=== PATIENT | female | born 1955 | race Caucasian/White ===

== ENCOUNTER → 2017-08-30 08:19 | Outpatient (CLI) | payer BC, SELFPAY ==
--- NOTE | 2017-08-30 08:25 | US_ITS ---
US transvaginal HISTORY: Follow-up ovarian cyst, pelvic pain ORDERING PHYSICIAN: Fatmata Oliver MD PATIENT AGE: 61 years COMPARISON: 05/25/2009 FINDINGS: UTERUS: The uterus measures 6 x 2.5 x 4 cm with a 3 mm combined endometrial thickness. There is a small amount of fluid within the cervical canal. The uterus is retroverted. Overall obvious uterine mass. The left ovary is 1.6 x 1.5 cm and has an unremarkable appearance. The right ovary is 2 x 1 cm and has an unremarkable appearance. No cul-de-sac fluid. IMPRESSION: Retroverted uterus. Small amount fluid in the cervical canal. No adnexal mass or ovarian cyst apparent
--- NOTE | 2017-08-30 08:25 | US_ITS ---
EXAM: Ultrasound abdomen limited INDICATION: HISTORY: Right upper quadrant pain and indigestion ORDERING PHYSICIAN: Fatmata Oliver MD PATIENT AGE: 61 years COMPARISON: None FINDINGS: PANCREAS: Unremarkable. No obvious mass or abnormal fluid collection. No ductal dilatation LIVER: No focal liver lesions demonstrated. Homogeneous echogenicity. No intrahepatic biliary ductal dilatation evident RIGHT KIDNEY: Unremarkable. Normal size and echogenicity. No hydronephrosis GALLBLADDER: No gallstones, gallbladder wall thickening, pericholecystic fluid, or biliary dilatation. IMPRESSION: Negative gallbladder/right upper quadrant ultrasound
== END ==
PROVIDERS: Family Provider Family Medicine; PCP Family Medicine; Visit Provider Family Medicine
DX: R10.13 Epigastric pain (principal); Z87.42 Personal history of other diseases of the female genital tract
CPT/HCPCS: 76705; 76830

== ENCOUNTER 2020-02-22 21:05 | Emergency (ER) | payer OTHER, SELFPAY ==
--- NOTE | 2020-02-22 21:00 | ECG_ITS ---
APPROVED REPORT Exam: Resting ECG HR:73 bpm ECG Measurements Heart Rate 73 AXES WY 146 P 54 QRSd 96 QRS 42 QT 390 T 48 QTc 429 <Conclusion> Normal sinus rhythm Possible Left atrial enlargement ST abnormality, possible digitalis effect Abnormal ECG Electronically signed by : Shaheen Wallace, 02/23/2020 09:12:35
[2020-02-22 21:06] VITALS: BP 191/120; PULSE 79; RESP 16; TEMP 36.6; O2SAT 97; BMI 27.3
--- NOTE | 2020-02-22 21:11 | XR_ITS ---
PROCEDURE: XR CHEST 2V Patient Age:64Y CLINICAL HISTORY: chest pain Left-sided chest pain started 1 p.m. today. COMPARISON: CTAC CTA-CHEST from 03/15/2017 CXR1 CHEST-PORTABLE from 03/15/2017 FINDINGS: PA and lateral chest performed and compared to the February 2017 CXR The cardiomediastinal silhouette and pulmonary vascularity are within normal limits. The lungs are clear without infiltrates, suspicious nodules, or pleural effusions. No pneumothorax but no findings to account for left-sided chest pain. No acute bony abnormalities. Chest wall in T-spine appear stable IMPRESSION: Nothing definitely acute No acute cardiopulmonary findings . Dictated by: Pravin Salinas MD 02/22/2020 22:26 Electronically signed by Pravin Salinas MD in [place] 02/22/2020 22:26
[2020-02-22 21:20] LABS: Basophils # 0.1 K/mm3 (0-0.2); Basophils % 0.5 % (0.1-2.0); Eosinophils # 0.4 K/mm3 (0.0-0.4); Eosinophils % 3.1 % (0.1-12.0); Hematocrit 44.5 % (37.0-47.0); Hemoglobin 15.4 g/dL (12.2-16.2); Lymphocytes # 4.3 K/mm3 (0.7-4.5); Lymphocytes % 35.5 % (10-50); Mean Corpuscular HGB Conc 34.6 g/dL (31.8-35.4); Mean Corpuscular Hemoglobin 30.3 pg (27.0-31.2); Mean Corpuscular Volume 87.5 fl (81-99); Mean Platelet Volume 7.2 fl (7.4-10.4); Monocytes # 0.7 K/mm3 (0.1-1.0); Monocytes % 6.1 % (1.7-9.3); Neutrophils # 6.6 K/mm3 (1.8-7.8); Neutrophils % 54.8 % (37.0-80.0); Platelet Count 277 K/mm3 (142-424); Red Blood Count 5.08 M/mm3 (4.20-5.40); Red Cell Distribution Width 12.9 % (11.5-17.5)
[2020-02-22 21:24] LABS: Anion Gap 14.1 mEq/L (5-15); Blood Urea Nitrogen 14 mg/dl (7-17); Calcium 10.5 mg/dl (8.4-10.2); Carbon Dioxide 30 mmol/L (22.0-30.0); Chloride 98 mmol/L (98-107); Creatinine Clearance Estimated 72 mL/min (50-200); Estimated Glomerular Filt Rate 85 ml/min (>60); GFR (African American) 102 ML/MIN (>60); Glucose 102 mg/dl (74-100); Potassium 4.1 mmoL/L (3.5-5.1); Sodium 138 mmol/L (136-145)
--- NOTE | 2020-02-22 21:29 | HMH.EDCP ---
ED Disposition Clinical Impression: Chest pain, Atypical chest pain Disposition: Home, Self-Care Condition on Discharge: Good Additional Instructions: These follow-up with Rell Rangel in the a.m. for an outpatient stress test. Referrals: Provider,Referral, [Primary Care Provider] - Rell Rangel PA [Physician Custom Ski Maker] - - Critical Care Critical Care Time: No Attestation: On 02/22/20, the high probability of a clinically significant, sudden or life threatening deterioration of the following system(s) required my full and direct attention, intervention and personal management. The time I documented below is in addition to time spent performing reported procedures but includes the following listed in this critical care notation. Medical Decision Making - Medical Records Medical records reviewed: Yes: I reviewed the patient's medical records. - Paulo Inquiry Pt receiving controlled substance: No Vital Signs: 02/22/20 21:06 Temperature 97.9 F Temperature Source Oral Pulse Rate [Right Brachial] 79 Respiratory Rate 16 Blood Pressure [Right Arm] 191/120 H Blood Pressure Mean [Right Arm] 143 Blood Pressure Source [Right Arm] Automatic Cuff Blood Pressure Position [Right Arm] Sitting 02 Sat by Pulse Oximetry 97 Oxygen Delivery Method Room Air - Lab Data Lab results reviewed: Yes: I reviewed the patient's lab results. Orders (Tests/Meds): ED MEDICATIONS Generic Name Dose Route Start Last Admin Trade Name Freq PRN Reason Stop Dose Admin Sodium Chloride 1,000 mls @ 999 mls/hr 02/22/20 21:15 Sod Chlor 0.9% 1000ml Bag IV 02/22/20 22:15 .Q1H1M MARIA ESTHER Discontinued Medications Generic Name Dose Route Start Last Admin Trade Name Freq PRN Reason Stop Dose Admin Acetaminophen 1,000 mg 02/22/20 21:25 02/22/20 21:28 Tylenol 500mg Tablet PO 02/22/20 21:26 1,000 mg ONCE ONE Administration Aspirin 324 mg 02/22/20 21:12 Aspirin 81mg Chewable Tablet PO 02/22/20 21:13 ONCE ONE Morphine Sulfate 4 mg 02/22/20 21:12 Morphine 4mg/Ml Syringe IV 02/22/20 21:13 ONCE ONE Nitroglycerin 0.4 mg 02/22/20 21:12 Nitrostat 0.4mg Sl Tablet SL 02/22/20 21:13 ONCE ONE Ondansetron HCl 4 mg 02/22/20 21:26 02/22/20 21:28 Zofran 4mg/2ml Vial IV 02/22/20 21:27 4 mg ONCE ONE Administration ORDERS Category Date Time Status XR chest 2V Stat Exams 02/22/20 21:11 Ordered Basic Metabolic Panel Stat Lab 02/22/20 21:09 Received Complete Blood Count Auto Diff Stat Lab 02/22/20 21:09 Received Troponin I Q3H Lab 02/23/20 00:15 Ordered Troponin I Q3H Lab 02/23/20 03:15 Ordered Troponin I Stat Lab 02/22/20 21:09 Received - ECG Data Tracing #1 I reviewed this ECG and interpreted as documented below: Normal Sinus Rhythm: Yes Chest Pain HPI - General Chief Complaint: Chest Pain Stated Complaint: Chest pain Time Seen by Provider: 02/22/20 21:29 Mode of Arrival: Ambulatory Source of Information: Patient Limitations: No Limitations Description of Symptoms (Recalled from ER Triage Doc. by RN): Patient reports centralized chest discomfort that radiates to her back and up her neck that started around 1300 today. Patient reports the pain comes and goes throughout the day and gets worse when she lays down. - History of Present Illness HPI narrative: A pleasant 64-year-old female presents the emergency department with substernal chest pain. This chest pain occurred at rest about 1 hour prior to arrival. Patient states that she does not have any cardiac history she also states that she did have a stress test done here approximately 2 to 3 years ago and it was normal. Patient does states she has 2 risk factors which include hypertension hyperlipidemia. Presently her blood pressure is 190/110. Patient's pain is 4 out of 10 and she classifies as a pressure and sharp-like sensation. She states alleviating factors include and anything that does not in
[2020-02-22 21:30] VITALS: BP 158/109; PULSE 90; RESP 17; O2SAT 95
[2020-02-22 21:48] LABS: Troponin I < 0.01 ng/ml (0.00-0.034)
[2020-02-22 22:00] VITALS: BP 149/93; PULSE 62; RESP 10; O2SAT 96
--- NOTE | 2020-02-22 22:26 | PC.NURSE ---
Vivian in lab notified that Dr. Neal wants 2 hour troponin which will be at 2300.
[2020-02-22 22:30] VITALS: BP 146/95; PULSE 62; RESP 12; O2SAT 95
[2020-02-22 23:00] VITALS: BP 153/92; PULSE 62; RESP 10; O2SAT 95
[2020-02-22 23:20] LABS: Troponin I < 0.01 ng/ml (0.00-0.034)
[2020-02-22 23:52] VITALS: BP 155/98; PULSE 68; RESP 14; O2SAT 97
[2020-02-23 00:08] VITALS: BP 135/92; PULSE 67; RESP 11; TEMP 36.6; O2SAT 96
[2020-02-23 00:32] LABS: Coronavirus 19 IgG Antibody Negative (Negative); Coronavirus 19 IgM Antibody Negative (Negative)
== END 2020-02-23 00:29 | disposition home or self-care (01) ==
PROVIDERS: Emergency Provider Family Medicine; PCP Family Medicine
DX: R07.89 Other chest pain (principal); I10 Essential (primary) hypertension; E78.5 Hyperlipidemia, unspecified; Z88.1 Allergy status to other antibiotic agents; Z88.2 Allergy status to sulfonamides; Z79.899 Other long term (current) drug therapy
CPT/HCPCS: 36415; 71046; 80048; 84484; 85025; 86328; 93005; 96365; 96375; 99283; 99284; J2405

== ENCOUNTER → 2020-03-15 10:50 | Outpatient (CLI) | payer OTHER, SELFPAY ==
--- NOTE | 2020-03-15 11:06 | US_ITS ---
PROCEDURE: US KIDNEY CLINICAL INDICATION: ESSENTIAL HYPERTENSION COMPARISON: No exams were available for comparison FINDINGS: The right kidney is [id number]. No hydronephrosis, cortical thinning, or renal mass or perinephric fluid collection is evident. The left kidney is [id number]. No hydronephrosis, cortical thinning, or renal mass or perinephric fluid collection is evident. IMPRESSION: Unremarkable bilateral renal ultrasound Dictated by: Manuel Lara MD 03/15/2020 15:14 Manuel Lara MD in [place] 03/15/2020 15:14
== END ==
PROVIDERS: PCP Family Medicine; Visit Provider Family Medicine
DX: I10 Essential (primary) hypertension (principal)
CPT/HCPCS: 76770

== ENCOUNTER → 2020-05-19 06:21 | Outpatient (CLI) | payer OTHER, SELFPAY ==
--- NOTE | 2020-05-19 | CA_ITS ---
APPROVED REPORT Exam: Exercise Treadmill Technologist: Marie Arriaga Ht: 5 ft 7 in Wt: 175 lbs BSA: 1.91 m2 HR: 72 bpm BP: 144/91 mmHg Indications: Chest Pain Medical History Medications: Metoprolol,,,,, Losartan,,,,, Estradiol,,,,, DulOXETINE,,,,, RoSUVASTATIN,,,,, TriaMterene/HCTZ,,,,, Stress Test Details Test: Adrian HR Resting HR: 86 bpm Max Heart Rate (APMHR): 157 bpm Max HR Achieved: 158 bpm Target HR (85% APMHR): 133 bpm % of APMHR: 100 Recovery HR: 85 bpm BP Resting BP: 144.0/91.0 mmHg Max BP: 196.0/100.0 mmHg Recovery BP: 144.0/84.0 mmHg ECG Clinical Exercise duration: 08:00 min Highest Stage Achieved: Exercise capacity: 10.1 METs Stress ECG Conclusion Resting ECG: Normal sinus rhythm, ST abnormalities inferiorly and laterally, PVC. Patient exercised 8:00 on Adrian Protocol. Test stopped due to shortness of air, fatigue. Symptoms: No chest pain. Arrhythmias/Ectopy: None ST-T Changes: Mild exaggeration of baseline ST abnormalities. Conclusion: EKG with exercise is negative for ischemia. Myoview images reported separately. Electronically signed by : Vic Martin, 05/20/2020 10:42:24
--- NOTE | 2020-05-19 06:34 | NM_ITS ---
APPROVED REPORT Exam: Nuclear Stress Test Indication: HTN, HYPERLIPIDEMIA, FM HX, C.P., FATIGUE Patient Location: Outpatient Stress Tech: Marie Arriaga [place] Tech:Jennifer Patten, ARRT, RT (R)(N) Ht: 5 ft 7 in Wt: 175 lbs Bra Size: 38C HR: 72 bpm BP: 144/91 mmHg BSA: 1.91 m2 BMI: 27.4 History: HTN, HYPERLIPIDEMIA, FM HX, C.P., FATIGUE Procedure: Patient exercised on Adrian protocol 8:00 minutes and sec, resting heart rate 72 bpm, resting blood pressure 144/91 mmHg, with exercise maximum heart rate achived was 145 bpm which is 92 % of the maximum predicted heart rate and blood pressure was 196/100 mmHg. Patient denied any complaint of chest pain. Patient has good exercise capacity, achieved 10.1 METs of workload on treadmill, the blood pressure response to exercise was Hypertensive. Electrocardiogram Resting electrocardiogram showed sinus rhythm, with exercise there is less than 1.[address] segment depression noted from the baseline EKG. The EKG portion of the exercise Myoview is negative for ischemia. Cardiac Stress and Resting SPECT Images: Cardiac Stress and Resting SPECT images were obtained using technetium 99m Myoview 32.1 mCi stress and 9.98 mCi at rest. Gated SPECT for analysis of segmental wall motion and calculation of the ejection fraction also done. Prone images were also obtained. Cardiac stress and resting SPECT images show uniform myocardial activity without segmental perfusion abnormality, computer derived ejection fraction is 62% with no regional wall motion abnormality, right ventricle is normal size and contractility. Conclusion: 1. The EKG portion of the exercise Myoview is negative for ischemia, patient has good exercise capacity achieved 10.1 mets of workload on treadmill, the blood pressure response to exercise was hypertensive, there was no exercise-induced chest discomfort. 2. No scintigraphic evidence of reversible ischemia seen at this level of exercise, computer derived ejection fraction is 62% with no regional wall motion abnormality, right ventricle is normal size and contractility. 3. Normal exercise Myoview study except for hypertensive blood pressure response with exercise. Electronically signed by : Vic Martin, 05/20/2020 10:53:58
--- NOTE | 2020-05-19 08:12 | HMH.ITSHM ---
Current Home Medications as stated by this patient Nelly Cai or environmental marketing representative. []METOPROLOL HYDROCHLOROTHIAZIDE LOSARTAN OMEPRAZOLE DULOXETINE LOPREZZA ROSUVASTATIN
== END ==
PROVIDERS: PCP Family Medicine; Visit Provider Family Medicine
DX: R07.9 Chest pain, unspecified (principal)
CPT/HCPCS: 78452; 93017; A9502

== ENCOUNTER → 2020-06-21 09:42 | Outpatient (CLI) | payer OTHER, SELFPAY ==
[2020-06-22 14:52] LABS: Covid-19 Nasal PCR Sendout Lex Not Detected
== END ==
PROVIDERS: Visit Provider Family Medicine
DX: Z03.818 Encounter for observation for suspected exposure to other biological agents ruled out (principal)
CPT/HCPCS: U0004

== ENCOUNTER → 2020-10-20 09:14 | Outpatient (CLI) | payer OTHER, SELFPAY | PROVIDERS: PCP Family Medicine; Visit Provider Family Medicine | DX: Z20.822 Contact with and (suspected) exposure to COVID-19 (principal) | CPT/HCPCS: U0003 ==

== ENCOUNTER → 2021-04-15 09:24 | Outpatient (CLI) | payer OTHER, SELFPAY | PROVIDERS: PCP Family Medicine; Visit Provider Family Medicine | DX: Z20.822 Contact with and (suspected) exposure to COVID-19 (principal) | CPT/HCPCS: C9803; U0003; U0005 ==

== ENCOUNTER → 2021-08-22 11:53 | Outpatient (CLI) | payer OTHER, SELFPAY ==
--- NOTE | 2021-08-22 11:58 | XR_ITS ---
FINAL REPORT CLINICAL HISTORY: LT FOOT PAIN FINDINGS: LEFT ANKLE Three views demonstrate no acute fracture or dislocation. The visualized joint spaces are normally aligned. Mild degenerative changes are present. The soft tissues are unremarkable. IMPRESSION: No acute bony abnormality. Reviewed, Interpreted and Dictated by Lukas Saez III, MD Transcribed by Lisa Fajardo Authenticated by Lukas Saez III, MD on 08/22/2021 01:28:[address] [facility]
--- NOTE | 2021-08-22 11:58 | XR_ITS ---
FINAL REPORT CLINICAL HISTORY: LT FOOT PAIN FINDINGS: LEFT FOOT Left views of the left foot were obtained and compared to prior exam from 03/07/2017. There is no acute fracture or dislocation. There are mild degenerative changes a small plantar calcaneal spur. Mild degenerative changes are seen at the first metatarsophalangeal joint. Visualized joint spaces are normally aligned. Soft tissues are unremarkable. IMPRESSION: No acute bony abnormality. Reviewed, Interpreted and Dictated by Lukas Saez III, MD Transcribed by Lisa Fajardo Authenticated by Lukas Saez III, MD on 08/22/2021 01:28:[address] [facility]
== END ==
PROVIDERS: PCP Family Medicine; Visit Provider Nurse Practitioner Family
DX: M79.672 Pain in left foot (principal); M25.572 Pain in left ankle and joints of left foot
CPT/HCPCS: 73610; 73630

== ENCOUNTER → 2021-11-17 10:03 | Outpatient (CLI) | payer MEDICARE, OTHER, SELFPAY | PROVIDERS: PCP Family Medicine; Visit Provider Family Medicine | DX: Z01.812 Encounter for preprocedural laboratory examination (principal); Z11.52 Encounter for screening for COVID-19 | CPT/HCPCS: C9803; U0003; U0005 ==

== ENCOUNTER → 2022-01-10 09:09 | Outpatient (POV) | payer MEDICARE, OTHER, SELFPAY | PROVIDERS: Visit Provider Dermatology | DX: Z00.00 Encounter for general adult medical examination without abnormal findings (principal) ==

== ENCOUNTER → 2022-05-04 16:29 | Outpatient (CLI) | payer MEDICARE, SELFPAY ==
--- NOTE | 2022-05-04 | XR_ITS ---
PROCEDURE INFORMATION: Exam: XR Lumbosacral Spine Exam date and time: 05/04/2022 4:38 PM Age: 66 years old Clinical indication: Pain; Sciatica TECHNIQUE: Imaging protocol: Radiologic exam of the lumbosacral spine. Views: 2 or 3 views. COMPARISON: CR LS5 LUMBAR SPINE 5 VIEWS 03/07/2017 8:54 PM FINDINGS: Bones/joints: Mild dextroscoliosis of the lumbar spine. Intervertebral disc space narrowing L1 through L3 and L5/S1 consistent with degenerative disc disease.. There is no evidence of acute fracture.There is no evidence of malalignment or dislocation. Soft tissues: Unremarkable. IMPRESSION: 1. Intervertebral disc space narrowing L1 through L3 and L5/S1 consistent with degenerative disc disease.. 2. There is no evidence of acute fracture.There is no evidence of malalignment or dislocation.
== END ==
PROVIDERS: PCP Family Medicine; Visit Provider Physician Assistant
DX: G57.02 Lesion of sciatic nerve, left lower limb (principal)
CPT/HCPCS: 72100

== ENCOUNTER → 2022-08-01 14:12 | Outpatient (CLI) | payer MEDICARE, SELFPAY ==
--- NOTE | 2022-08-01 14:21 | XR_ITS ---
FINAL REPORT CLINICAL HISTORY: LT HIP PAIN FINDINGS: Left hip Three views were obtained. There is no acute fracture or dislocation. The joint spaces appear normal. No soft tissue abnormality is identified. IMPRESSION: No acute process. Reviewed, Interpreted and Dictated by Lukas Saez III, MD Transcribed by Tara Marin Authenticated and . [facility]
--- NOTE | 2022-08-01 14:21 | XR_ITS ---
FINAL REPORT CLINICAL HISTORY: LT HIP PAIN FINDINGS: Left femur Two views were obtained. There is no acute fracture or dislocation. The joint spaces appear normal. No soft tissue abnormality is identified. IMPRESSION: No acute process. Reviewed, Interpreted and Dictated by Lukas Saez III, MD Transcribed by Tara Marin Authenticated and [facility]
== END ==
PROVIDERS: PCP Family Medicine; Visit Provider Nurse Practitioner Family
DX: M25.552 Pain in left hip (principal); M79.652 Pain in left thigh
CPT/HCPCS: 73502; 73552

== ENCOUNTER 2023-12-14 11:58 | Outpatient (CLI) | payer MEDICARE, SELFPAY ==
--- NOTE | 2023-12-14 12:03 | XR_ITS ---
FINAL REPORT CLINICAL HISTORY: Low back pain COMPARISON: None FINDINGS: LUMBOSACRAL SPINE SERIES Five views of the lumbosacral spine were obtained. There is no fracture present. There is no malalignment. There is moderate disc space narrowing at L2-3 with small anterior osteophytes. There is moderate disc space narrowing at L5-S1 with advanced facet sclerosis in the lower lumbar spine. IMPRESSION: Hypertrophic changes of degenerative disc disease at L2-3 and L5-S1. Reviewed, Interpreted and Dictated by Raghu Duque MD Transcribed by Marilyn Jimenez Authenticated and . [facility]
== END 2023-12-14 23:59 | disposition home or self-care (01) ==
LOC: RAD 11:59
PROVIDERS: PCP Family Medicine; Visit Provider Family Medicine
DX: M54.50 Low back pain, unspecified (principal)
CPT/HCPCS: 72110

== ENCOUNTER 2024-01-14 10:24 | Outpatient (CLI) | payer MEDICARE, SELFPAY ==
[2024-01-14 10:39] LABS: Adenovirus F 40/41, stool Not Detected (NotDetected); Astrovirus Not Detected (NotDetected); Campylobacter Not Detected (NotDetected); Clostridium Difficile A/B, PCR Not Detected (NotDetected); Cryptosporidium Not Detected (NotDetected); Cyclospora Cayetanesis Not Detected (NotDetected); Entamoeba histolytica Not Detected (NotDetected); Enteroaggregative E coli Not Detected (NotDetected); Enteropathogenic E coli Not Detected (NotDetected); Enterotoxigenic E coli Not Detected (NotDetected); Giardia lamblia Not Detected (NotDetected); Norovirus Not Detected (NotDetected); Plesimonas Shigalloides, PCR Not Detected (NotDetected); Rotavirus A Not Detected (NotDetected); Salmonella, PCR Not Detected (NotDetected); Sapovirus Not Detected (NotDetected); Shiga-like toxin E coli Not Detected (NotDetected); Shigella Enterovasive E coli Not Detected (NotDetected); Vibrio Cholerae Not Detected (NotDetected); Vibrio, PCR Not Detected (NotDetected); Yersinia Entercolitica, PCR Not Detected (NotDetected)
== END 2024-01-14 23:59 | disposition home or self-care (01) ==
LOC: LAB 10:27
PROVIDERS: PCP Family Medicine; Visit Provider Family Medicine
DX: K52.9 Noninfective gastroenteritis and colitis, unspecified (principal)
CPT/HCPCS: 87506

== ENCOUNTER 2024-05-06 11:37 | Outpatient (CLI) | payer MEDICARE, SELFPAY ==
--- NOTE | 2024-05-06 11:41 | XR_ITS ---
FINAL REPORT CLINICAL HISTORY: FOOT PAIN ,LEFT COMPARISON: 08/22/2021 FINDINGS: LEFT FOOT Three views of the left foot demonstrate no acute fracture or dislocation. The visualized joint spaces are normally aligned. The soft tissues are unremarkable. A plantar calcaneal spur is present. IMPRESSION: No acute bony abnormality. Small plantar calcaneal spur. Reviewed, Interpreted and Dictated by Raghu Duque MD Transcribed by Haleigh Wood Authenticated and . [facility]
== END 2024-05-06 23:59 | disposition home or self-care (01) ==
LOC: RAD 11:38
PROVIDERS: PCP Family Medicine; Visit Provider Nurse Practitioner Family
DX: M79.672 Pain in left foot (principal)
CPT/HCPCS: 73630

== ENCOUNTER 2024-07-17 10:00 | Outpatient (RCR) | payer MEDICARE, SELFPAY ==
--- NOTE | 2024-06-27 10:47 | HMH.PTOPEV ---
PT Outpatient Evaluation Rehab PT Outpatient Evaluation Start: 06/27/24 07:57 Freq: Status: Active Protocol: Document 06/27/24 09:13 TEX (Rec: 06/27/24 10:47 PHODARA [id number]) E-signed By Baldo Ospina, PT Outpatient Therapy Subjective History Subjective History This is the initial eval for Nelly Cai. Pt is a 68 yo female who presents w/ a dx of brachioradial pruritus. Pt c/o HANY itching sensation that is in the upper arms and goes into the elbows, R>L. She describes the sensation is occasionally accompanied w/ pain. Pt denies symptoms distal to the elbow and denies numbness and/or tingling. Pt states the symptoms started in January. Pt has a PMH of RA and HTN that are both controlled by medication. Pt reports a medication change in December. She reports the symptoms are worse in the evening while sitting on the couch. Other factors that have increased her symptoms include scratching the itching, allergies during the fall this year, and holding her grandson. Pt denies having imaging performed. Pt reports occasional headaches but contributes them to her sinuses. Her symptoms are relieved by using ice. Sleep is mildly disturbed when she rolls onto her right, but she denies any other functional limitations at this time. Additionally, she reports stiffness in her cervical spine w/ all motions, but R rotation and R lateral flexion > L. Pt reports pain today is a 0/10 and at the worst 5/10. She states her symptoms are intermittent. Pt denies having a pacemaker. New diagnosis of cancer in past 12 No months? Chief Complaint Stiff,Other Symptom Type Other Symptoms Relieved By Ice Symptoms Aggravated By Lifting Prior Functional Limitations None Current Functional Limitations Lifting,Sleeping Level of pain today (0-10) 0 Pain scale - at its best (0-10) 0 Pain scale - at its worst (0-10) 5 Cervical Eval Palpation Cervical/Thoracic Palpation Findings None/Normal Posture Head/C-Spine Posture Sitting Position Neutral Position Head/C-Spine Posture Standing Position Neutral Position Passive Joint Mobility Cervical PIVM Dec: R OA L OA R AA L AA R C2/3 L C2/3 R C3/4 L C3/4 R C4/5 L C4/5 R C5/6 L C5/6 R C6/7 L C6/7 R C7/T1 L C7/T1 AROM Cervical Spine Extension Active Range of 32 Motion (degrees) Cervical Spine Flexion Active Range of 27 Motion (degrees) Cervical Spine Right Lateral Flexion 17 Active Range of Motion (degrees) Cervical Spine Left Lateral Flexion 21 Active Range of Motion (degrees) Cervical Spine Right Rotation Active 47 Range of Motion (degrees) Cervical Spine Left Rotation Active 47 Range of Motion (degrees) MMT Bilateral Deltoid (C5) 5 Normal Biceps Brachii Strength Grade 5 Normal Wrist Extension Strength Grade Not Tested Triceps Brachii Strength Grade 5 Normal Wrist Flexion Strength Grade Not Tested Extensor Pollicis Longus Strength Grade 5 Normal Finger Abduction Strength Grade 5 Normal DTR Rt Biceps 2+ Lt Biceps 2+ Rt Brachioradialis 2+ Lt Brachioradialis 2+ Rt Triceps 2+ Lt Triceps 2+ Altered Sensation Bilateral Upper extremity Dermatomes C5,C6,C7,C8,T1 Comment Equal HANY, no deficits Special Test C-Spine Foraminal Compression (Spurling) Negative Left,Negative Right Test C-spine Verterbral Accessory Movements Central P/A Kenyon,Right P/A that Elicit Symptoms Kenyon,Left P/A Kenyon C-Spine Foraminal Distraction Test Negative C-Spine Compression Test Negative Left,Negative Right Neck Disability Index Neck Disability Index Section 1: Pain Intensity I have no pain at the moment Section 2: Personal Care (washing, I can look after myself dressing, etc.) normally without causing extra pain Section 3: Lifting I can only lift very light weights Section 4: Reading I can read as much as I want with moderate pain in my neck Section 5: Headaches I have slight headaches, which come infrequently Section 6: Concentration I can concentrate fully when I want to with no difficulty Section 7: Work I can do as much work as I want to Section 8: Driving I can drive my car without any neck pain Section 9: Sleeping My sleep is slightly disturbed (less than 1 hr sleepless) Section 10: Recreation I am able to engage in all my recreation activities with no neck pain NDI Score 8 Miscellaneous Dx PT Eval Objective Objective Cervical PIVMS: HANY mobility deficits, stiff end feels UPAs most provocative HANY: C2, C4-5, C6-7. 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 Noticeable erythema on R after performing UPAs. None observed on L. Outpatient Therapy Assessment Impairments Problems/Impairmments Palpation Tenderness,Impaired Range of Motion,Impaired Lifting,Subjective C/O Pain Prognosis Rehab Potential Good Comment Skilled PT services are indicated to increase ROM deficits and improve subjective c/o pain/itching. Clinical Impression Consistent with Diagnosis Yes Consistent with Bracioradial pruritus Short Term Goals Number of Weeks 2 Increase Range of Motion Yes: Improve by 5 degrees in all planes Restore Ability to Lift Objects to Waist Yes: Able to lift and hold Level 30lbs for 30s w/ <3/10 pain Improve Neck Disability Index Score Yes: Improve by at least 2 points Decrease Subjective C/O Pain Yes: Decrease pain at worst to 3/10 Patient to be Ind w/ HEP Yes: Yes Supervisor Laboratory Goals Increase Range of Motion Yes: Increase by 10 degrees in all planes Restore Ability to Lift Objects to Waist Yes: Able to lift and hold 30# Level w/ 0/10 pain Improve Neck Disability Index Score Yes: Improve score by at least 4 points Decrease Subjective C/O Pain Yes: Decrease pain at worst to 1/10 Patient to be Ind w/ Advanced HEP Yes: Yes Outpatient Therapy Plan of Care Treatment Plan May Include Therapeutic Exercise Including Home Yes Exercise Program Manual Therapy Techniques Yes Neuromuscular Re-education Yes Therapeutic Activities to Return to Yes Previous Functional/Work Level ADL/Self Care Education Yes Mechanical Traction Yes Dry Needling Yes Thermal Modalities Yes Electrical Stimulation Yes Ultrasound/Phonophoresis Yes Massage Yes Eval/Re-Eval Yes Frequency Times per week 2-3 Duration Number of Weeks 4-6 Addendums This patient is a candidate for social No or vocational rehab? Patient/Guardian verbally acknowledges Yes understanding of treatment program and consents to further treatment? Patient/Guardian verbally acknowledges Yes understanding of diagnosis, prognosis and goals for treatment? Eval Complexity PT Charges 15394 - High Complexity Shoulder/Elbow Eval Shoulder Objective Measurements Elbow Objective Measurements PHYSICIAN CERTIFICATION: I certify the specified therapy services for Nelly Cai are required, authorized, and reviewed every 30 days.
== END 2024-07-17 23:59 | disposition home or self-care (01) ==
LOC: PT 10:00
PROVIDERS: PCP Family Medicine; Visit Provider Nurse Practitioner Family
DX: L29.9 Pruritus, unspecified (principal)
CPT/HCPCS: 97012; 97014; 97110; 97140; 97163; G0283

== ENCOUNTER 2024-08-10 13:09 | Emergency (ER) | payer MEDICARE, SELFPAY ==
--- NOTE | 2024-08-10 13:10 | XR_ITS ---
PROCEDURE INFORMATION: Exam: XR Left Foot Exam date and time: 08/10/2024 1:11 PM Age: 68 years old Clinical indication: Injury or trauma; Fall; Blunt trauma; Foot; Left TECHNIQUE: Imaging protocol: Radiologic exam of the left foot. Views: 3 or more views. COMPARISON: CR XR FOOT LT MIN 3V 05/06/2024 11:49 AM FINDINGS: Bones/joints: Comminuted minimally displaced spiral oblique fracture of the distal half of the 5th metatarsal consistent with acute fracture. Degenerative changes in the tarsometatarsal joints and 1st metatarsophalangeal joint and IP joint. Soft tissues: Soft tissue swelling laterally. IMPRESSION: 1. Comminuted minimally displaced spiral oblique fracture of the distal half of the 5th metatarsal consistent with acute fracture. 2. Degenerative changes in the tarsometatarsal joints and 1st metatarsophalangeal joint and IP joint.
--- NOTE | 2024-08-10 13:10 | XR_ITS ---
PROCEDURE INFORMATION: Exam: XR Left Ankle Exam date and time: 08/10/2024 1:13 PM Age: 68 years old Clinical indication: Injury or trauma; Fall; Blunt trauma; Ankle; Left TECHNIQUE: Imaging protocol: Radiologic exam of the left ankle. Views: 3 or more views. COMPARISON: CR XR ANKLE LT MIN 3V 08/22/2021 12:03 PM FINDINGS: Bones/joints: There is no evidence of acute fracture of the ankle.There is no evidence of malalignment or dislocation. Degenerative changes in the medial malleolus There is acute fracture of the 5th metatarsal Soft tissues: Normal. IMPRESSION: There is no evidence of acute fracture of the ankle.There is no evidence of malalignment or dislocation. Acute fracture of the 5th metatarsal
[2024-08-10 13:30] VITALS: BP 133/89; PULSE 71; RESP 18; TEMP 36.7; O2SAT 99; BMI 29.7
--- NOTE | 2024-08-10 13:36 | EXP.UTC ---
Discharge Plan Disposition Patient Disposition: Home, Self-Care Condition: Good Prescriptions Prescriptions: New ibuprofen 800 mg tablet 800 mg PO Q8H PRN (Reason: pain) Qty: 30 0RF No Action metoprolol succinate 50 MG tablet extended release 24 hr 50 mg PO DAILY rosuvastatin 20 MG tablet 20 mg PO DAILY duloxetine 30 MG capsule,delayed release(DR/EC) 30 mg PO DAILY losartan 100 MG tablet 100 mg PO DAILY 30 Days Qty: 30 2RF oxazepam 15 mg capsule 15 mg PO DAILY gabapentin 100 mg capsule 100 mg PO TID Referrals Follow up/Referrals: Fatmata Oliver MD [Primary Care Provider] - See instructions Activity Restrictions/Add. Instructions Additional Instructions/Restrictions: Follow up with Dr. Mao on , . Rest, ice, elevation, and compression. Wear boot while walking. Clinical Impressions Clinical Impression: Fracture of fifth metatarsal bone of left foot with malunion Instructions Patient Instructions: DI for Foot Fracture, How To Perform RICE (Rest, Ice, Compress, Elevate) Print Language Print Language: Romanian Discharge ED Provider: Monet Alvarado [facility] HPI General Stated complaint: AO fall 08/10 @1000, left foot pain Mode of Arrival: Ambulatory Source of Information: Patient Limitations: No Limitations Time Seen by Provider: 08/10/24 13:34 Description of Symptoms (Recalled from Triage Doc. by RN): PATIENT C/O INJURY TO LEFT FOOT AFTER FALLING ON ICE THIS MORNING HEENT Symptoms (Recalled from RN notes): No Resp Symptoms (Recalled from RN notes): No Skin Symptoms (Recalled from RN notes): No MS Symptoms (Recalled from RN notes): Yes Functional Status (Recalled from RN notes): WNL History of Present Illness Provider Complaint: Pt reports that she was walking and hit a piece of ice and hurt her left foot/ankle. She reports that she has iced her foot and elevated. She reports that the pain has gotten worse and the foot is bruised and swollen. Related Data Home Medications ?Medication ?Instructions ?Recorded ?Confirmed duloxetine 30 mg capsule,delayed 30 mg PO DAILY antidepressant 02/22/20 08/10/24 release metoprolol succinate 50 mg 50 mg PO DAILY BP 02/22/20 08/10/24 tablet,extended release 24 hr rosuvastatin 20 mg tablet 20 mg PO DAILY Cholesterol 02/22/20 08/10/24 gabapentin 100 mg capsule 100 mg PO TID 08/10/24 08/10/24 oxazepam 15 mg capsule 15 mg PO DAILY 08/10/24 08/10/24 Previous Rx's ?Medication ?Instructions ?Recorded losartan 100 mg tablet 100 mg PO DAILY 30 days #30 tabs 02/23/20 ibuprofen 800 mg tablet 800 mg PO Q8H PRN pain #30 tabs 08/10/24 Allergies Allergy/AdvReac Type Severity Reaction Status Date / Time ciprofloxacin (From CIPRO) Allergy Unknown Verified 09/01/22 10:30 sulfamethoxazole (From Allergy Unknown Verified 09/01/22 10:30 BACTRIM) trimethoprim (From BACTRIM) Allergy Unknown Verified 09/01/22 10:30 amoxicillin AdvReac Verified 09/01/22 10:30 Worker's Comp Is this a Worker's Comp case?: No [facility] Disclaimer: The information contained in this section may have been updated after the patient was seen, as this information can be updated by other users. Social History Smoking Status: Never smoker alcohol intake: current alcohol intake frequency: holidays/special occasions only current occupational status: retired Travel in the last 8 weeks: None Have you lived/traveled outside US in past 30 days?: No Contact w/someone who lives/traveled outside US past 30 days?: No Exposure to someone with infectious disease in past 14 days?: No Do you have a fever (greater than 100.4 F or 38 C)?: No Have you tested positive for COVID-19: No Exposed to someone with COVID-19 in past 14 days?: No Do you have a sore throat?: No Do you have a cough?: No Do you have any weakness?: No Do you have any diarrhea?: No Are you experiencing any unusual bleeding?: No Do you have any muscle aches/pain?: No Do you have any abdominal pain?: No Are you experiencing loss of taste or smell?: No ROS Obtained: Yes All systems reviewed & no additional complaints except as documented Constitutional Constitutional: Reports system reviewed and no additional complaints, except as documented Eyes Eyes: Reports system reviewed and no additional complaints, except as documented ENT Ears, Nose, Mouth, and Throat: Reports system reviewed and no additional complaints, except as documented Cardiovascular Cardiovascular: Reports system reviewed and no additional complaints, except as documented Respiratory Respiratory: Reports system reviewed and no additional complaints, except as documented Gastrointestinal Gastrointestingal: Reports system reviewed and no additional complaints, except as documented Genitourinary Female Genitourinary: Reports system reviewed and no additional complaints, except as documented Musculoskeletal Musculoskeletal: Reports system reviewed and no additional complaints, except as documented, Reports abnormal gait, Reports arthralgias and Reports joint swelling Integumentary/Breasts Skin/Breast: Reports system reviewed and no additional complaints, except as documented Neurologic Neurologic: Reports system reviewed and no additional complaints, except as documented and Reports abnormal gait Endocrine Endocrine: Reports system reviewed and no additional complaints, except as documented Hematologic/Lymphatic Henatologic/Lymphatic: Reports system reviewed and no additional complaints, except as documented Allergic/Immunologic Allergic/Immunologic: Reports system reviewed and no additional complaints, except as documented Physical Exam General General appearance: alert and in no apparent distress Head Head exam: atraumatic and normocephalic Eye Eye exam: Present normal appearance ENT ENT exam: Present normal exam and normal oropharynx Neck Neck exam: Present normal inspection Chest Chest inspection: Present normal inspection and symmetric chest wall rise Respiratory Respiratory exam: Present normal lung sounds bilaterally Cardiovascular Cardiovascular exam: Present regular rate, normal rhythm and normal heart sounds Abdominal Exam Abdominal exam: Present soft Extremities Exam Extremities exam: Present tenderness and normal capillary refill Expanded Lower Extremity Exam Left: Hip/Pelvis exam: Present normal inspection Upper leg exam: Present normal inspection Knee exam: Present normal inspection Lower leg exam: Present normal inspection Ankle exam: Present tenderness Foot/toe exam: Present tenderness, swelling and ecchymosis Top foot image: 1. bruising and tenderness noted Neurovascular/Tendon exam: Present normal capillary refill Gait: observed and limited by pain Back Exam Back exam: Present normal inspection Neurological Exam Neurological exam: Present alert and oriented X3 Psychiatric Psychiatric exam: Present normal affect and normal mood Skin Skin exam: Present warm, dry and intact Lymphatic Lymphatic Findings: no adenopathy Medical Decision Making Medical Records Screening: Per USPSTF and CDC recommendations, given the prevalence of disease in our region, it is our hospital?s policy to screen for HIV and viral Hepatitis for all patients aged 18 and over and those with ongoing risk factors. Paulo Inquiry Pt receiving controlled substance: No Paulo was queried for this patient: No Vital Signs: 08/10/24 13:30 Temperature 98.1 F Temperature Source Oral Pulse Rate [Left Brachial] 71 Respiratory Rate 18 Blood Pressure [Left Arm] 133/89 Blood Pressure Mean [Left Arm] 103 Blood Pressure Source [Left Arm] Automatic Cuff Blood Pressure Position [Left Arm] Sitting 02 Sat by Pulse Oximetry 99 Oxygen Delivery Method Room Air Orders (Tests/Meds): ORDERS Category Date Time Status XR ankle LT min 3V Stat Exams 08/10/24 13:10 Taken XR foot LT min 3V Stat Exams 08/10/24 13:10 Taken Radiology Data #1: Image(s): Foot/Toes Image Reviewed: Yes I reviewed the patient's radiology results and Yes I have reviewed radiologist's interpretation IMPRESSION: 1. Comminuted minimally displaced spiral oblique fracture of the distal half of the 5th metatarsal consistent with acute fracture. 2. Degenerative changes in the tarsometatarsal joints and 1st metatarsophalangeal joint and IP joint. #2: Image(s): Ankle Image Reviewed: Yes I reviewed the patient's radiology results and Yes I have reviewed radiologist's interpretation IMPRESSION: There is no evidence of acute fracture of the ankle.There is no evidence of malalignment or dislocation. Acute fracture of the 5th metatarsal
[2024-08-10 14:35] VITALS: BP 133/89; PULSE 71; RESP 18; TEMP 36.7; O2SAT 99
== END 2024-08-10 14:38 | disposition home or self-care (01) ==
PROVIDERS: Emergency Provider Nurse Practitioner Family; PCP Family Medicine
DX: S92.352P Displaced fracture of fifth metatarsal bone, left foot, subsequent encounter for fracture with malunion (principal); M79.672 Pain in left foot; S90.32XA Contusion of left foot, initial encounter; R22.42 Localized swelling, mass and lump, left lower limb
CPT/HCPCS: 73610; 73630; 99212; G0381

== ENCOUNTER 2024-09-15 13:39 | Outpatient (CLI) | payer MEDICARE, SELFPAY ==
--- NOTE | 2024-09-15 13:42 | MR_ITS ---
FINAL REPORT TECHNIQUE: Multiplanar MR without gadolinium enhancement CLINICAL HISTORY: PARESTHESIAS bilateral itching on upper arms COMPARISON: None FINDINGS: Limited images of the posterior fossa are unremarkable. There is minimal anterolisthesis of C5 on C6 and T1 on T2. Cervical spinal cord shows normal signal and contour. C2-3: There is mild bilateral neural foraminal narrowing without evidence of canal stenosis. C3-4: There is mild left neural foraminal narrowing without evidence of central canal stenosis. C4-5: A small central disc protrusion is present without evidence of central canal stenosis. C5-6: A mild annular bulge is present without evidence of canal stenosis. C6-7: A mild annular bulge is present without evidence of canal stenosis. C7-T1: Unremarkable T1-T2: Unremarkable IMPRESSION: Mild multilevel degenerative disks disease is present without evidence of canal stenosis. Mild degenerative subluxation of C5 on C6 and T1 on T2 as described. Reviewed, Interpreted and Dictated by Fatmata Cheney MD Transcribed by Haleigh Wood Authenticated and . [facility]
== END 2024-09-15 23:59 | disposition home or self-care (01) ==
LOC: RAD 13:40
PROVIDERS: PCP Family Medicine; Visit Provider Family Medicine
DX: R20.2 Paresthesia of skin (principal); M50.30 Other cervical disc degeneration, unspecified cervical region
CPT/HCPCS: 72141

== ENCOUNTER 2024-10-07 11:45 | Outpatient (CLI) | payer MEDICARE, SELFPAY ==
--- NOTE | 2024-10-07 11:50 | XR_ITS ---
FINAL REPORT TECHNIQUE: 3 views right hand CLINICAL HISTORY: . 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 There is sparing of the proximal joints. The second DIP, third PIP and fifth DIP joints are the most severely affected. Generalized osteopenia is present. 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 Reviewed, Interpreted and Dictated by Fatmata Cheney MD Transcribed by Haleigh Wood Authenticated and [facility]
--- NOTE | 2024-10-07 11:50 | XR_ITS ---
FINAL REPORT TECHNIQUE: 3 views left hand CLINICAL HISTORY: INFLAMMATORY POLYARTHROPATHY COMPARISON: None FINDINGS: LEFT HAND: Three views demonstrate erosive osteoarthritic change in the distal and proximal inner phalangeal joints. The second, third, and fifth digits are the most severely involved. Overall arthropathy is worse in the left hand than the right. Osteopenia is present. IMPRESSION: Erosive osteoarthritic change of predominantly the DIP and PIP joints of the left hand as described, more severe in the left hand than the right. Reviewed, Interpreted and Dictated by Fatmata Cheney MD Transcribed by Haleigh Wood Authenticated and [facility]
== END 2024-10-07 23:59 | disposition home or self-care (01) ==
LOC: RAD 11:47
PROVIDERS: PCP Family Medicine; Visit Provider Internal Medicine Rheumatology
DX: M06.4 Inflammatory polyarthropathy (principal)
CPT/HCPCS: 73130

== ENCOUNTER 2025-06-17 08:47 | Outpatient (CLI) | payer MEDICARE, SELFPAY ==
--- OUTSIDE RECORDS SUMMARY | 2016-12-05 09:35 | XMS_ITS | Encounter Summary ---
[facility] Address [address] [place] [address] Care Team Providers Care Pickle Sorter Name Role Phone Hernandez Oliver MD Primary Care Provider [phone] Encounter Details Date Type Department Care Team (Late st Contact Info) Description 12/05/2016 10:35 AM EDT Hospital Encounter [facility] PULMONARY & CRITICAL CARE MEDICINE [address] [place] [id number] Social History Tobacco Use Types Packs/Day Years Used Date Smoking Tobacco: Never Passive Smoke Exposure: Never Smokeless Tobacco: Never Alcohol Use Standard Drinks/Week Comments Yes 0 (1 standard drink = 0.6 oz pur e alcohol) Rarely Comments No Sex and Gender Information Value Date Recorded Sex Assigned at Female 01/29/2025 8:22 AM EDT Legal Sex Female 12:04 PM EDT Gender Identity Not on file Sexual Orientation Straight 01/29/2025 8: 22 AM EDT documented as of this encounter Plan of Treatment Upcoming Encounters Date Type Department Care Team (Late st Contact Info) Description 07/27/2025 10:40 AM EST Office Visit [facility] [address] [facility] [address] [place] [phone] Jamie Glass MD [address] [facility] [address] [place] [address] 08/07/2025 9:15 AM EST Office Visit [facility] CARDIOLOGY [address] [place] [phone] Bashir Norman MD [address] [facility] [address] [place] [address] 02/11/2026 10:15 AM EDT Office Visit [facility] OBGYN [address] [facility] [address] [place] [address] Francesca Cheney, DISPLAY MAKER [address] [facility] [address] [place], [place] [phone] documented as of this encounter Procedures Procedure Name Priority Date/Time Associated Diagnosis Comments XR CHEST PA AND LATERAL Routine 12/05/2016 10:43 AM EDT Cough documented in this encounter Results * XR Chest PA & Lateral (12/05/2016 10:43 AM EDT) Anatomical Region Laterality Modality Body, Chest N/A Radiographic Lelo ging Narrative 12/05/2016 5:17 PM EDT Chest x-ray PA and lateral Study date: December 05, 2016 Indication: Cough Comparison: None available Interpretation: Trachea is midline. Main nicolas is sharp. There is no cardiomegaly. There is no pleural effusion or pneumothorax. There is some increased density in the mid to lower lung zones associated with overlying breast prostheses but no infiltrate, nodule, or mass is apparent. No significant bony abnormality. Impression: No acute radiographic chest disease. us Ze Bradley MD IMG DIAGNOSTIC IMAGING ORDER EUSEBIO Final Result documented in this encounter Visit Diagnoses Not on filedocumented in this encounter Care Teams Pickle Sorter Relationship Specialty Start Date End Date Hernandez Oliver MD [address] [place] [address] PCP - General Family Medicine 12/05/16 documented as of this encounter
--- OUTSIDE RECORDS SUMMARY | 2024-06-16 06:15 | XMS_ITS ---
Author 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 Referred Provider Specialty Physical The rapist General Notes Marian Fleming 11:43:53 AM > intense itching and sharp pains in forearms, Radha Boyd 06/16/2024 11:59:19 AM > faxed to [facility] PT Referral Priority Routine REASON FOR VISIT PT for neck Medications Medication SIG (Take, Route, Frequency, Duration) Notes Start Date End Date Status Hydroxychloroquine Sulfate 200 MG as directed Orally bid Activ e chlordiazePOXIDE HCl 5 MG 1 capsule Oral ly Three times a day; Duration: 30 day(s) 05/22/2024 Not-Taking diazePAM 2 MG 1 tablet as needed Orally three times a day as needed 11/28/2023 Not-Taking Metoprolol Succinate ER 50 MG 1 tab(s) orally once a day; Duration: 90 days Active Vitamin D3 50 MCG (1999 UT) 1 cap(s) orally once a day Active Rosuvastatin Calcium 40 MG 1 tab(s) oral ly once a day; Duration: 90 days Active Triamterene-HCTZ 37.5-25 MG 1/2 tablet Orally Once a day; Duration: 90 days Active DULoxetine HCl 30 MG TAKE 1 CAPSULE BY MOUTH DAILY; Duration: 90 Active Losartan Potassium 25 MG 1 tablet Orally Once a day; Duration: 30 days Active Hyoscyamine Sulfate 0.125 MG 1 tablet under the tongue and allow to dissolve as needed Sublingual three times a day as needed 02/18/2024 Active Estrace 0.1 MG/GM as directed intravaginally 2 times a week Active Estradiol-Norethindrone Acet 0.5-0.1 MG TAKE ONE TABLET BY MOUTH DAILY; Duration: 28 Active Vital Signs Blood pressure systolic 122 mm Hg 06/16/20 24 Blood pressure diastolic 80 mm Hg 024 Heart Rate 91 /min 06/16/2024 Height 66.50 in 06/16/2024 Weight 185.4 lbs 06/16/2024 BMI 29.47 kg/m2 06/16/2024 Encounters Encounter Location Date Provider Diagnosis [facility] [address] [facility] [address] [facility] [address] [place] [id number] 06/16/2024 Marian Fleming Brachioradial prurit L29.9 Assessments Encounter Date Diagnosis (ICD Code) Assessment Notes Treatment Notes Treatment Clinical Notes Section Notes 06/16/2024 Brachioradial pruritus (ICD-10 - L29.9) pt requests referral to PT Plan Of Treatment Treatment Notes Assessment Notes Brachioradial pruritus pt requests refer ral to PT Referrals Referral Date Details 06/16/2024 06/16/2024, . Physic al Therapy Next Appt Details Follow Up: prn, Reason: Provider Name:Teresa Lux er, 08/10/2025 09:30:00 AM, [address] [facility], [address], [place], [phone], Progress Notes * YEBOAH, JACKMIKYOB:[birth year] (69 yo F)Acc No.[id number]:06/16/2024 Progress Notes Patient: ELYSSA TOMAS Provider: NASRIN Franklin :1955 A ge:68 Y S ex:Female Date:06/16/2024 Address:[address], [place], [id number] Pcp:Teresa Oliver Subjective: * Chief Complaints: * 1 . PT for neck. * HPI: H PI: 68 year old female presents with c/o Patient is here today for?Pt sts she has had a lot of itching on her arms and sts she has done a lot of reading and sts she thinks she may need some PT on her neck. Pt sts she believes it is a pinched nerve . * ROS: D ERMATOLOGY: no R mark. n o H wally. G ASTROENTEROLOGY: no N ausea. n o V omiting. n o D iarrhea.? U ROLOGY: no D ifficulty urinating. n o B lood in urine. * Medical History: H ypertension, Hyperlipidemia, Colonoscopy 2004, 2009, 04/25/13 US of GB neg, Neg Cardiolyte GXT 2009, tDapt July 2018, COVID 19 Vaccines x2, second was 09/01/2020, COVID 19 Booster 06/08/21, Moderna. * Surgical History: C -section x3 , colonoscopy-normal 06/2010, breast reimplants 08/2018, Colonoscopy 05/2023. * Hospitalization/Major Diagno stic Procedure: inder wkok , [facility] chest pain 03/15-03/15, [facility] ER-Elevated BP 02/22/2020. * Family History: F ather: alive, prostate cancer, hypertension. M other: alive, hypertension, CAD, CABG X4.?Siblings: sister with similar sxs, takes Protonix. C hildren: hypertension, asthma. 2 brother(s) , 2 sister(s) - healthy. 1 son(s) , 2 daughter(s) . . * Social History: C URRENT TOBACCO USE S moking Status: Patient does NOT smoke. C affeine: yes, frequency:. Exercise: yes. Home smoke detector use: yes. Marital Status: . New since last visit: none. Past smoking status: no, Smoking status: Does not smoke. Occup. exposure: none. Recreational drug use: no. Alcohol: socially, Type: , Frequency: ,Years: , Determination:. Sexually active: yes. Travel ouside [place]: yes. * Medications: T aking Hydroxychloroquine Sulfate 200 MG Tablet as directed Orally bid , Taking Vitamin D3 50 MCG (2000 UT) Capsule 1 cap(s) orally once a day , Taking Estradiol-Norethindrone Acet 0.5-0.1 MG Tablet TAKE ONE TABLET BY MOUTH DAILY , Taking Estrace 0.1 MG/GM Cream as directed intravaginally 2 times a week , Taking Rosuvastatin Calcium 40 MG Tablet 1 tab(s) orally once a day , Taking Hyoscyamine Sulfate 0.125 MG Tablet Sublingual 1 tablet under the tongue and allow to dissolve as needed Sublingual three times a day as needed , Taking Losartan Potassium 25 MG Tablet 1 tablet Orally Once a day , Taking DULoxetine HCl 30 MG Capsule Delayed Release Particles TAKE 1 CAPSULE BY MOUTH DAILY , Taking Triamterene-HCTZ 37.5- 25 MG Tablet 1/2 tablet Orally Once a day , Taking Metoprolol Succinate ER 50 MG Tablet Extended Release 24 Hour 1 tab(s) orally once a day , Not-Taking diazePAM 2 MG Tablet 1 tablet as needed Orally three times a day as needed , Not-Taking chlordiazePOXIDE HCl 5 MG Capsule 1 capsule Orally Three times a day , Medication List reviewed and reconciled with the patient * Allergies: C ipro: hives, Cefdinir: Hives. Objective: * Vitals: W t:185.4, Temp:98.3, BP:122/80, HR:91, O2 Sat:97% on RA, Nurse:Travis, Ht: 66.50, BMI:29.47. * Examination: G eneral Examination: General Appearance: NAD, appears healthy, alert, pleasant. N richard: supple, no lymphadenopathy, normal ROM of C spine. H eart: RRR. L ungs: CTAB A&P. N eurologic Exam: alert and oriented. S kin: normal, no rash. E xtremities: bilateral upper arms without erythema or rash. ? Assessment: * Assessment: 1. B rachioradial pruritus - L29.9 (Primary) Plan: * Treatment: * Procedure Codes: 9 4760 PULSE OX * Follow Up: p rn * Images: Billing Information: * Visit Code: 36767 Office Visit, Est Pt., Level 3. * Procedure Codes: 05278 PULSE OX. * Electronic signature of Beba Fleming APRN on 06/17/2025 at 08:53 AM EST Sign off status: Pending * Provider: NASRIN Franklin Date: 08/16/2023 Generated for Krzysztof howard/Nirmal/eTransmitting on: 08/17/2024 08:53 AM EST History and Physical Notes * HPI (History of Present Illness) Category Sub-Category Detail Notes Category Not es HPI Patient is here today for Pt sts she has had a lot of itching on her arms and sts she has done a lot of reading and sts she thinks she may need some PT on her neck. Pt sts she believes it is a pinched nerve Examination Category Sub-Category Detail Notes Category Not es General Examination Heart: RRR Lungs: CTAB A&P Extremities: bilateral upper arms without erythema or rash General Appearance: NAD, appears healthy , alert, pleasant Skin: normal, no rash Neurologic Exam: alert and oriented Neck: supple, no lymphaden opathy, normal ROM of C spine Consultation Request Notes Referral Date Referring Provider Referred Provider Not es 06/16/2024 Marian Fleming Physical Therapy, .
--- OUTSIDE RECORDS SUMMARY | 2024-08-08 05:15 | XMS_ITS ---
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 Name Role Phone Teresa Oliver Primary Care Provider Allergies Allergen (clinical drug ingredient) Drug/Non Drug Allergy documented on EMR Reaction Allergy Type Onset Date Status cefdinir Cefdinir Hives Drug Allergy Active ciprofloxacin Cipro hives Drug Allergy Act humberto REASON FOR VISIT neck Medications Medication SIG (Take, Route, Frequency, Duration) Notes Start Date End Date Status Triamterene-HCTZ 37.5-25 MG 1/2 tablet Orally Once a day; Duration: 90 days Active Metoprolol Succinate ER 50 MG 1 tab(s) orally once a day; Duration: 90 days Active Oxazepam 15 MG 1 cap(s) orally thre e times a day as needed 11/22/2023 Not-Taking chlordiazePOXIDE HCl 5 MG 1 capsule Oral ly Three times a day; Duration: 30 day(s) 05/22/2024 Not-Taking DULoxetine HCl 30 MG TAKE 1 CAPSULE BY MOUTH DAILY; Duration: 90 days Active Hyoscyamine Sulfate 0.125 MG 1 tablet under the tongue and allow to dissolve as needed Sublingual three times a day as needed 02/18/2024 Active Losartan Potassium 25 MG 1 tablet Orally Once a day; Duration: 30 days Active Estrace 0.1 MG/GM as directed intravaginally 2 times a week Active Rosuvastatin Calcium 40 MG 1 tab(s) oral ly once a day; Duration: 90 days Active Estradiol-Norethindrone Acet 0.5-0.1 MG TAKE ONE TABLET BY MOUTH DAILY; Duration: 28 Active Vitamin D3 50 MCG (1999 UT) 1 cap(s) orally once a day Active Gabapentin 100 MG 2 capsule at bedtime Orally bedtime; Duration: 30 day(s) 08/29/2024 Active Hydroxychloroquine Sulfate 200 MG as directed Orally bid Activ e Vital Signs Blood pressure systolic 120 mm Hg 08/08/19 25 Blood pressure diastolic 90 mm Hg 025 Heart Rate 68 /min 08/08/2024 Height 66.50 in 08/08/2024 Weight 189.4 lbs 08/08/2024 BMI 30.11 kg/m2 08/08/2024 Encounters Encounter Location Date Provider Diagnosis [facility] [address] [facility] [address] [facility] [address] [place] [phone] 08/08/2024 Teresa Oliver Pruritus L29.9 and Essential hypertension I10 Assessments Encounter Date Diagnosis (ICD Code) Assessment Notes Treatment Notes Treatment Clinical Notes Section Notes 08/08/2024 Pruritus (ICD-10 - L29.9) humidifier, Dove soap recommended, skip a bath occasionally, OTC Corticosteroid s. Oxazepam refilled todayhh. 08/08/2024 Essential hypertension (ICD-10 - I10) Plan Of Treatment Medication Medication Name Sig Start Date Stop Date Notes Gabapentin 100 MG 2 capsule at bedtime Orally bedtime; Duration: 30 day(s) 08/29/2024 Treatment Notes Assessment Notes Pruritus humidifier, Dove soap recommended, skip a bath occasionally, OTC Corticosteroids. Oxazepam refilled todayhh. Next Appt Details Follow Up: as scheduled, Harriet son: Provider Name:Teresa Lux er, 08/10/2025 09:30:00 AM, [address] [facility], [address], [place], [phone], Progress Notes * SHAMA YEBOAHOB:[birth year] (69 yo F)Acc No.[id number]:08/08/2024 Progress Notes Patient: ELYSSA TOMAS Provider: Teresa Oliver M.D. :1955 A ge:68 Y S ex:Female Date:08/08/2024 Address:[address], [place], [id number] Subjective: * Chief Complaints: * 1 . Neck. * HPI: D ermatology: The patient is her for a follow up on itching of both arms. Pt states she tried all different types of creams and Benadryl without much relief. She thinks it could be brachioradial pruritis. Pt states she has tried using ice packs at night and that will sometimes help. Pt denies any rash. Pt is needing a refill for Oxazepam sent to [facility] in [place]. 68 year old female presents with c/o itching. * ROS: D ERMATOLOGY: no R mark. [...] 05/2023. * Hospitalization/Major Diagno stic Procedure: inder kwok , [facility] chest pain 03/15-03/15, [facility] ER-Elevated BP 02/22/2020. * Family History: F [...] tablet Orally Once a day , Taking Triamterene-HCTZ 37.5-25 MG Tablet 1/2 tablet Orally Once a day , Taking Metoprolol Succinate ER 50 MG Tablet Extended Release 24 Hour 1 tab(s) orally once a day , Taking DULoxetine HCl 30 MG Capsule Delayed Release Particles TAKE 1 CAPSULE BY MOUTH DAILY , Not-Taking Oxazepam 15 MG Capsule 1 cap(s) orally three times a day as needed , Not-Taking chlordiazePOXIDE HCl 5 MG Capsule 1 capsule Orally Three times a day , Medication List reviewed and reconciled with the patient * Allergies: C ipro: hives, Cefdinir: Hives. Objective: * Vitals: W t:189.4, Temp:98.3, BP:120/90, HR:68, Nurse:ROSI, Ht: 66.50, BMI:30.11. * Examination: G eneral Examination: General Appearance: N AD. H EENT: u nremarkable.?Oral cavity: n o lesions, mucosa moist and WNL, no erythema. N richard: s upple, no lymphadenopathy. C hest: n ormal shape and expansion. H eart: R SR. L ungs: c lear to auscultation. A bdomen: s oft and nontender, hyperactive BS. N eurologic Exam:?Intact, gait normal. S kin: n ormal, no rash. P eripheral pulses: n ormal . B ack: mild dorsal kyphosis. E xtremities: n o leg edema. Assessment: * Assessment: 1. P ruritus - L29.9 (Primary) 2 . E ssential hypertension - I10 Plan: * Treatment: * Follow Up: a s scheduled * Images: Billing Information: * Visit Code: 90047 Office Visit, Est Pt., Level 3. * Procedure Codes: * Electronic signature of Teresa Oliver MD on 06/17/2025 at 08:53 AM EST Sign off status: Pending * Provider: Teresa Oliver M.D. Date: 0 08/08/2024 Generated for Krzysztof howard/Nirmal/eTransmitting on: 08/17/2024 08:53 AM EST History and Physical Notes * HPI (History of Present Illness) Category Sub-Category Detail Notes Category Not es Dermatology itching Examination Category Sub-Category Detail Notes Category Not es General Examination HEENT: unremarkable Heart: RSR Lungs: clear to auscultatio n Abdomen: soft and nontender, hyperactive BS Extremities: no leg edema General Appearance: NAD Skin: normal, no rash Neurologic Exam: Intact, gait normal Neck: supple, no lymphaden opathy Oral cavity: no lesions, mucosa m oist and WNL, no erythema Peripheral pulses: normal Back: mild dorsal kyphosis Chest: normal shape and exp ansion
--- OUTSIDE RECORDS SUMMARY | 2024-09-08 05:15 | XMS_ITS ---
Author Organization [facility] Address [address] [place] [id number] Care Team Providers Care Soil Biology Teacher Name Role Phone Teresa Oliver Primary Care Provider Allergies Allergen (clinical drug ingredient) Drug/Non Drug Allergy documented on EMR Reaction Allergy Type Onset Date Status cefdinir Cefdinir Hives Drug Allergy Active ciprofloxacin Cipro hives Drug Allergy Act humberto Results Component Value Reference Range Notes MRI : Spine, Cervical, witho ut contrast Reviewed date:09/16/2024 09:25:09 AM Interpretation:Abnormal Performing Lab: Notes/Report: Abnormal EMG/NCV, bilateral Reviewed date:10/08/2024 04:00:38 PM Interpretation:Normal Performing Lab: Notes/Report: Normal REASON FOR VISIT neck, upper back Medications Medication SIG (Take, Route, Frequency, Duration) Notes Start Date End Date Status chlordiazePOXIDE HCl 5 MG 1 capsule Oral ly Three times a day; Duration: 30 day(s) 05/22/2024 Not-Taking Gabapentin 100 MG 2 capsule at bedtime Orally bedtime; Duration: 30 day(s) 08/08/2024 Active Oxazepam 15 MG 1 cap(s) orally thre e times a day as needed 11/22/2023 Not-Taking Metoprolol Succinate ER 50 MG 1 tab(s) orally once a day; Duration: 90 days Active DULoxetine HCl 30 MG TAKE 1 CAPSULE BY MOUTH DAILY; Duration: 90 days Active Estrace 0.1 MG/GM as directed intravaginally 2 times a week Active Rosuvastatin Calcium 40 MG 1 tab(s) oral ly once a day; Duration: 90 days Active Triamterene-HCTZ 37.5-25 MG 1/2 tablet Orally Once a day; Duration: 90 days Active Hyoscyamine Sulfate 0.125 MG 1 tablet under the tongue and allow to dissolve as needed Sublingual three times a day as needed 02/18/2024 Active Losartan Potassium 25 MG 1 tablet Orally Once a day; Duration: 30 days Active Vitamin D3 50 MCG (1999 UT) 1 cap(s) orally once a day Active Estradiol-Norethindrone Acet 0.5-0.1 MG TAKE ONE TABLET BY MOUTH DAILY; Duration: 28 Active Hydroxychloroquine Sulfate 200 MG as directed Orally bid Activ e Problems Problem Type SNOMED Code ICD Code Onset Dates Problem Status W/U Status Risk Notes Problem Paresthesia (finding) (97619130) Paresthesias (R20.2) Active confirmed Vital Signs Blood pressure systolic 120 mm Hg 09/08/19 25 Blood pressure diastolic 80 mm Hg 025 Heart Rate 84 /min 09/08/2024 Height 66.50 in 09/08/2024 Weight 189.4 lbs 09/08/2024 BMI 30.11 kg/m2 09/08/2024 Encounters Encounter Location Date Provider Diagnosis [facility] [address] [facility] [address] [place] [id number] 09/08/2024 Teresa Oliver Paresthesias R20.2 ; Weakness of left hand R29.898 and Itching L29.9 Assessments Encounter Date Diagnosis (ICD Code) Assessment Notes Treatment Notes Treatment Clinical Notes Section Notes 09/08/2024 Paresthesias (ICD-10 - R20.2) 09/08/2024 Weakness of left hand (ICD-10 - R29.898) 09/08/2024 Itching (ICD-10 - L29.9) Plan Of Treatment Next Appt Details Follow Up: 4 Weeks, Reason: Provider Name:Teresa Lux er, 08/10/2025 09:30:00 AM, [address] [facility] [address], [place], [id number], Progress Notes * SHAMA YEBOAHOB:[birth year] (69 yo F)Acc No.[id number]:09/08/2024 Progress Notes Patient: ELYSSA TOMAS Provider: Teresa Oliver M.D. :1955 A ge:68 Y S ex:Female Date:09/08/2024 Address:[address] [place] [address] [address], [place], [id number] Subjective: * Chief Complaints: * 1 . Neck, upper back. * HPI: N richard: The pt is here today with c/o continued itching in her arms. Pt states she saw Dermatology ([facility]) and they recommend she get xrays of the cervicle and Thorasic spine. * ROS: D ERMATOLOGY: no R mark. [...] Hospitalization/Major Diagno stic Procedure: inder kwok , [facility] chest pain 03/15-03/15, [facility] ER-Elevated BP 02/22/2020. * Family History: [...] 1 CAPSULE BY MOUTH DAILY , Taking Gabapentin 100 MG Capsule 2 capsule at bedtime Orally bedtime , Not-Taking Oxazepam 15 MG Capsule 1 cap(s) orally three times a day as needed , Not-Taking chlordiazePOXIDE HCl 5 MG Capsule 1 capsule Orally Three times a day , Medication List reviewed and reconciled with the patient * Allergies: C ipro: hives, Cefdinir: Hives. Objective: * Vitals: W t:189.4, Temp:98.3, BP:120/80, HR:84, Nurse:ROSI, Ht: 66.50, BMI:30.11. * Examination: G eneral Examination: General Appearance: N AD. H EENT: u nremarkable.?Oral cavity: n o lesions, mucosa moist and WNL, no erythema. N richard: s upple, no lymphadenopathy. C hest: n ormal shape and expansion. H eart: R SR. L ungs: c lear to auscultation. A bdomen: s oft and nontender, hyperactive BS. N eurologic Exam:?left median weakness. S kin: n ormal, no rash. P eripheral pulses: n ormal . B ack: mild dorsal kyphosis. E xtremities: n o leg edema, walking boot left foot. ? Assessment: * Assessment: 1. P aresthesias - R20.2 (Primary) 2 . W eakness of left hand - R29.898? 3. I tching - L29.9 Plan: * Treatment: 2.?Weakness of left hand?Imaging: EMG/NCV, bilateral (Performed Date - 10/07/2024)?Normal* Radha Boyd 09/08/2024 11:06 :51 AM > faxed to [facility] NeuroGoble Summer 10/08/2024 03:36:54 PM > left message for return callGowilfredoSummer 10/08/2024 04:00:23 PM > pt informed of results * Procedure Codes: G 2211 Complex e/m visit add on, 3074F SYST BP LT 130 MM HG, 3078F DIAST BP < 80 MM HG * Follow Up: 4 Weeks * Images: Billing Information: * Visit Code: 83456 Office Visit, Est Pt., Level 3. * Procedure Codes: G2211 Complex e/m visit add on. 3074F SYST BP LT 130 MM HG. 3078F DIAST BP < 80 MM HG. * Electronic signature of Teresa Oliver MD on 06/17/2025 at 08:53 AM EST Sign off status: Pending * Provider: Teresa Oliver M.D. Date: 0 09/08/2024 Generated for Negrai anita/Nirmal/eTransmitting on: 1 08/17/2024 08:53 AM EST History and Physical Notes * Examination Category Sub-Category Detail Notes Category Not es General Examination HEENT: unremarkable Heart: RSR Lungs: clear to auscultatio n Abdomen: soft and nontender, hyperactive BS Extremities: no leg edema, walkin g boot left foot General Appearance: NAD Skin: normal, no rash Neurologic Exam: left median weakness Neck: supple, no lymphaden opathy Oral cavity: no lesions, mucosa m oist and WNL, no erythema Peripheral pulses: normal Back: mild dorsal kyphosis Chest: normal shape and exp ansion
--- OUTSIDE RECORDS SUMMARY | 2024-09-29 04:30 | XMS_ITS ---
Author Organization [facility] Address [address] [facility] [address] [facility] [address] [place] [id number] Care Team Providers Care Inside Sales Professional Name Role Phone Teresa Oliver Primary Care Provider Allergies Allergen (clinical drug ingredient) Drug/Non Drug Allergy documented on EMR Reaction Allergy Type Onset Date Status cefdinir Cefdinir Hives Drug Allergy Active ciprofloxacin Cipro hives Drug Allergy Act humberto Results Component Value Reference Range Notes P-Comprehensive Metabolic Pa bradly (CMP) Reviewed date:09/30/2024 09:06:20 AM Interpretation:Cr 1.12, gfr 54 Performing Lab: Notes/Report: CLIA: [id number] Rhys Bacon MD, [employer] [address] [place] [address] , [address], [place] [address] Test performed by Gynzy, [facility] Sodium 142 135-145 mmol/L Potassium 4.1 3.5-5.3 mmol/L Chloride 104 97-108 mmol/L CO2 27 22-32 mmol/L Glucose 92 65-99 mg/dL BUN 16 8-23 mg/dL Creatinine 1.12 0.50-1.00 mg/dL Calcium 9.7 8.6-10.4 mg/dL eGFR by Creatinine 54 >59 mL/min/1.73m2 Protein 7.1 6.0-8.3 g/dL Albumin 4.3 3.5-5.3 g/dL Alkaline Phosphatase 77 35-121 IU/L ALT (SGPT) 11 <5-47 IU/L AST (SGOT) 18 <5-40 IU/L Bilirubin, Total 0.3 <0.2-1.2 mg/dL A/G Ratio 1.5 1.1-2.5 REASON FOR VISIT 6 Month Check Up, discuss weight loss drug, Needs labs, mammogram, bone density screening, colon cancer screening, & Prevnar vaccine Medications Medication SIG (Take, Route, Frequency, Duration) Notes Start Date End Date Status chlordiazePOXIDE HCl 5 MG 1 capsule Oral ly Three times a day; Duration: 30 day(s) 05/22/2024 Not-Taking DULoxetine HCl 30 MG TAKE 1 CAPSULE BY MOUTH DAILY; Duration: 90 days Active Oxazepam 15 MG 1 cap(s) orally thre e times a day as needed 11/22/2023 Not-Taking Gabapentin 100 MG 2 capsules Orally Tw o times a day; Duration: 30 days 09/26/2024 Active Metoprolol Succinate ER 50 MG 1 tab(s) orally once a day; Duration: 90 days Active Triamterene-HCTZ 37.5-25 MG 1/2 tablet Orally Once a day; Duration: 90 days Active Losartan Potassium 25 MG 1 tablet Orally Once a day; Duration: 30 days Active Hyoscyamine Sulfate 0.125 MG 1 tablet under the tongue and allow to dissolve as needed Sublingual three times a day as needed 02/18/2024 Active buPROPion HCl ER (SR) 100 MG 1 tablet in the morning Orally Once a day; Duration: 30 day(s) 09/29/2024 Active Rosuvastatin Calcium 40 MG 1 tab(s) oral ly once a day; Duration: 90 days Active Estrace 0.1 MG/GM as directed intravaginally 2 times a week Active Vitamin D3 50 MCG (1999 UT) 1 cap(s) orally once a day Active Hydroxychloroquine Sulfate 200 MG as directed Orally bid Activ e Progesterone 100 MG 1 capsule Orally Onc e a day Active Vivelle-Dot 0.05 MG/24HR 1 patch to skin Transdermal Two times a Week; Duration: 30 day(s) Active Problems Problem Type SNOMED Code ICD Code Onset Dates Problem Status W/U Status Risk Notes Problem Body mass index 30+ - obesity (043623694) BMI 30.0-30.9,a dult (Z68.30) Active confirmed Vital Signs Blood pressure systolic 134 mm Hg 09/30/19 25 Blood pressure diastolic 78 mm Hg 025 Heart Rate 77 /min 09/29/2024 Height 66.50 in 09/29/2024 Weight 193.4 lbs 09/29/2024 BMI 30.74 kg/m2 09/29/2024 Encounters Encounter Location Date Provider Diagnosis [facility] [address] [place], [place] [id number] 09/29/2024 Teresa Oliver Essential hypertensi on I10 ; Renal insufficiency N28.9 and BMI 30.0-30.9,adult Z68.30 Assessments Encounter Date Diagnosis (ICD Code) Assessment Notes Treatment Notes Treatment Clinical Notes Section Notes 09/29/2024 Essential hypertension (ICD-10 - I10) 09/29/2024 Renal insufficiency (ICD-10 - N28.9) 09/29/2024 BMI 30.0-30.9,adult (ICD-10 - Z68.30) Plan Of Treatment Medication Medication Name Sig Start Date Stop Date Notes buPROPion HCl ER (SR) 100 MG 1 tablet in the morning Orally Once a day; Duration: 30 day(s) 09/29/2024 Next Appt Details Follow Up: 4 Weeks, Reason: Provider Name:Teresa Lux er, 08/10/2025 09:30:00 AM, [address], [address], [place] [id number], Progress Notes * SHAMA YEBOAHOB:[birth year] (69 yo F)Acc No.[id number]:09/29/2024 Progress Notes Patient: ELYSSA TOMAS Provider: Teresa Oliver M.D. :1955 A ge:68 Y S ex:Female Date:09/29/2024 Address:[address] [place] [address], [id number] Subjective: * Chief Complaints: * 1 . 6 Month Check Up, discuss weight loss drug. 2. Needs labs, mammogram, bone density screening, colon cancer screening, & Prevnar vaccine. * HPI: C ardiology: The patient is here today for a check up on Hypertenson and Hyperlipidemia. Pt states she would like to discuss her weight gain and possible treatment plan. Pt is fasting. Denies : Chest Pain. D enies : Short of Breath. D enies : Dizziness. D enies : Palpitations. Gets her walking boot off this week. C onstitutional: Did not tolerate the semiglutide injections that she was taking commercially. Had nausea. * ROS: D ERMATOLOGY: no R mark. [...] Colonoscopy 05/2023. * Hospitalization/Major Diagno stic Procedure: k andrew kwok , [facility] chest pain 03/15-03/15, [facility] ER-Elevated BP 02/22/2020. * Family History: [...] ouside US: yes. * Medications: T aking Vivelle-Dot 0.05 MG/24HR Patch Twice Weekly 1 patch to skin Transdermal Two times a Week , Taking Progesterone 100 MG Capsule 1 capsule Orally Once a day , Taking Hydroxychloroquine Sulfate 200 MG Tablet as directed Orally bid , Taking Vitamin D3 50 MCG (2000 UT) Capsule 1 cap(s) orally once a day , Taking Estrace 0.1 MG/GM Cream as [...] , Taking Gabapentin 100 MG Capsule 2 capsules Orally Two times a day , Not-Taking Oxazepam 15 MG Capsule 1 cap(s) orally three times a day as needed , Not-Taking chlordiazePOXIDE HCl 5 MG Capsule 1 capsule Orally Three times a day , Discontinued Estradiol-Norethindrone Acet 0.5-0.1 MG Tablet TAKE ONE TABLET BY MOUTH DAILY , Medication List reviewed and reconciled with the patient * Allergies: C ipro: hives, Cefdinir: Hives. Objective: * Vitals: W t:193.4, Temp:98.6, BP:134/78, HR:77, Nurse:ROSI, Ht: 66.50, Repeat BP:114/84, BMI:30.74. * Examination: G eneral Examination: General Appearance: [...] left foot. ? Assessment: * Assessment: 1. E ssential hypertension - I10 (Primary) 2 . R enal insufficiency - N28.9? 3. B VT 30.0-30.9,adult - Z68.30 Plan: * Treatment: Value Reference Range A /G Ratio 1.5 1.1-2.5 - * A lbumin 4.3 3.5-5.3 - g/dL * A lkaline Phosphatase 77 35-121 - IU/L * A LT (SGPT) 11 <5-47 - IU/L * A ST (SGOT) 18 <5-40 - IU/L * B ilirubin, Total 0.3 <0.2-1.2 - mg/dL * B UN 16 8-23 - mg/dL * C alcium 9.7 8.6-10.4 - mg/dL * C hloride 104 97-108 - mmol/L * C O2 27 22-32 - mmol/L * C reatinine 1.12 H 0.50-1.00 - mg/dL * G lucose 92 65-99 - mg/dL * P otassium 4.1 3.5-5.3 - mmol/L * S odium 142 135-145 - mmol/L * P rotein 7.1 6.0-8.3 - g/dL * e GFR by Creatinine 54 L >59 - mL/min/1.73m2 * Francesca Luna 09/30/2024 09:0 6:15 AM > See phone encounter 2.?BMI 30.0-30.9,adult? Start buPROPion HCl ER (SR) Tablet Extended Release 12 Hour, 100 MG, 1 tablet in the morning, Orally, Once a day, 30 day(s), 30, Refills 3.?? * Procedure Codes: G 2211 Complex e/m visit add on, 3074F SYST BP LT 130 MM HG, 3078F DIAST BP < 80 MM HG * Follow Up: 4 Weeks * Images: Billing Information: * Visit Code: 66290 Office Visit, Est Pt., Level 4. * Procedure Codes: G2211 Complex e/m visit add on. 3074F SYST BP LT 130 MM HG. 3078F DIAST BP < 80 MM HG. * Electronic signature of Teresa Oliver MD on 06/17/2025 at 08:51 AM EST Sign off status: Pending * Provider: Teresa Oliver M.D. Date: 0 09/29/2024 Generated for Krzysztof howard/Nirmal/Jese on: 1 08/17/2024 08:51 AM EST History and Physical Notes * HPI (History of Present Illness) Category Sub-Category Detail Notes Category Not es Cardiology Short of Breath Gets her wal jesse boot off this week. Chest Pain Palpitations Dizziness Constitutional Did not keyana ate the semiglutide injections that she was taking commercially. Had nausea. Examination Category Sub-Category Detail Notes Category Not [...]
--- OUTSIDE RECORDS SUMMARY | 2024-11-07 06:30 | XMS_ITS ---
Author Organization [facility] Address [address] [place] [id number] Care Team Providers Care Security Rep Name Role Phone Teresa Oliver Primary Care Provider [phone] REASON FOR VISIT 4 week ckup Encounters Encounter Location Date Provider Diagnosis [facility] [address] [place] [id number] 11/07/2024 Teresa Oliver Plan Of Treatment Next Appt Details Provider Name:Teresa Lux er, 08/10/2025 09:30:00 AM, [address], [address], [place], [id number], Progress Notes * SHAMA YEBOAHOB:[birth year] (69 yo F)Acc No.[id number]:11/07/2024 Progress Notes Patient: ELYSSA TOMAS Provider: Teresa Oliver M.D. :1955 A ge:69 Y S ex:Female Date:11/07/2024 Address:[address] [place] [address], [id number] Subjective: * Chief Complaints: * 1 . 4 week ckup. * Medical History: Objective: * Vitals: Assessment: Plan: * Treatment: * Images: Billing Information: * Visit Code: * Procedure Codes: * Electronic signature of Teresa Oliver MD on 06/17/2025 at 08:51 AM EST Sign off status: Pending * Provider: Teresa Oliver M.D. Date: 0 11/07/2024 Generated for Krzysztof howard/Nirmal/Jese on: 1 08/17/2024 08:51 AM EST
--- OUTSIDE RECORDS SUMMARY | 2024-11-21 03:00 | XMS_ITS ---
Author Organization [facility] Address [address] [place] [id number] Care Team Providers Care Physical Therapist Aide Name Role Phone Teresa Oliver Primary Care Provider Allergies Allergen (clinical drug ingredient) Drug/Non Drug Allergy documented on EMR Reaction Allergy Type Onset Date Status cefdinir Cefdinir Hives Drug Allergy Active ciprofloxacin Cipro hives Drug Allergy Act humberto Results Component Value Reference Range Notes P-Surgical Pathology Reviewed date:02/04/2025 01:02:18 PM Interpretation:SOLAR LENTIGO/EARLY MACULARSEBORRHEIC KERATOSIS Performing Lab: Notes/Report: Surgical Pathology View Report Patient Name: NELLY CAI Age-Sex-: 69y F 1955 Procedure Date: 11/21/2024 Accession Date: 11/22/2024 Pt Acct#: Report Date: 11/25/2024 Location: OFFICE Physician(s): Hernandez Oliver MD P A T H O L O G Y R E P O R T DIAGNOSIS: SKIN, LEFT FOREARM, BIOPSY: SOLAR LENTIGO/EARLY MACULAR SEBORRHEIC KERATOSIS. (L82.1) Ceferino Bar DO electronically signed 11/25/2024 09:15 PM Gross Description: Received in formalin labeled Nelly Cai and skin lesion is a price shaved portion of skin measuring 2.0 x 1.4 x less than 0.1 cm. On the surface of the skin centrally located is a price lesion measuring 2.0 x 1.4 cm. The lesion extends to the peripheral margin of the skin. The resection margin is inked blue. The specimen is sectioned and submitted entirely in cassette 1A, M/1. (NM5,RR13,amw1) Grossing services provided by [facility], [facility], d/b/a [facility] [place], [address] Hola Salcedo MD, Development Consultant. Microscopic Description: There are nubbins of hyperpigmented keratinocytes. There are hyperkeratosis, focal acanthosis, and basal cell layer hyperpigmentation. Clinical History: L81.4 Other melanin hyperpigmentation. Suspicious skin lesion of the left forearm Specimen List: Skin lesion left forearm Unless specified otherwise above, the quality of the H and E and any other stains performed is satisfactory, and any internal or external positive and negative controls react appropriately. End of Report Technical services provided by [facility], [facility], [facility]a [facility], [address] [place] [address] , [place] [address] Hola Salcedo MD, Development Consultant. Case reviewed and diagnosis rendered at [facility], [facility], [address], [place] [address] Ceferino Bar DO, Development Consultant. CONFIDENTIAL REASON FOR VISIT freeze off spot & 4 week ckup Medications Medication SIG (Take, Route, Frequency, Duration) Notes Start Date End Date Status Progesterone 100 MG 1 capsule Orally Onc e a day Active Hydroxychloroquine Sulfate 200 MG as directed Orally bid Activ e Vivelle-Dot 0.05 MG/24HR 1 patch to skin Transdermal Two times a Week; Duration: 30 day(s) Active Vitamin D3 50 MCG (1999 UT) 1 cap(s) orally once a day Active chlordiazePOXIDE HCl 5 MG 1 capsule Oral ly Three times a day; Duration: 30 day(s) 05/22/2024 Not-Taking buPROPion HCl ER (SR) 100 MG 1 tablet in the morning Orally Once a day; Duration: 30 day(s) 09/29/2024 Not-Taking Metoprolol Succinate ER 50 MG 1 tab(s) orally once a day; Duration: 90 days Active Oxazepam 15 MG 1 cap(s) orally thre e times a day as needed 11/22/2023 Not-Taking Triamterene-HCTZ 37.5-25 MG 1/2 tablet Orally Once a day; Duration: 90 days Active Rosuvastatin Calcium 40 MG 1 tab(s) oral ly once a day; Duration: 90 days Active Gabapentin 100 MG 2 capsules Orally Tw o times a day; Duration: 30 days 09/26/2024 Active Losartan Potassium 25 MG 1 tablet Orally Once a day; Duration: 30 days Active DULoxetine HCl 30 MG TAKE 1 CAPSULE BY MOUTH DAILY; Duration: 90 days Active Hyoscyamine Sulfate 0.125 MG 1 tablet under the tongue and allow to dissolve as needed Sublingual three times a day as needed 02/18/2024 Active Estrace 0.1 MG/GM as directed intravaginally 2 times a week Active Vital Signs Blood pressure systolic 130 mm Hg 11/22/19 25 Blood pressure diastolic 80 mm Hg 025 Heart Rate 70 /min 11/21/2024 Height 66.50 in 11/21/2024 Weight 190.0 lbs 11/21/2024 BMI 30.2 kg/m2 11/21/2024 Encounters Encounter Location Date Provider Diagnosis [facility] [address] [place] [address] [address] [place], [place] [id number] 11/21/2024 Teresa Oliver Lentigo L81.4 Assessments Encounter Date Diagnosis (ICD Code) Assessment Notes Treatment Notes Treatment Clinical Notes Section Notes 11/21/2024 Lentigo (ICD-10 - L81.4) Plan Of Treatment Next Appt Details Follow Up: 2 Months, Reason: Provider Name:Teresa Lux , 08/10/2025 09:30:00 AM, [facility] [address], [address], [place], [place], [id number], Procedure Notes * Category Sub-Category Detail Notes Excision, skin lesion Consent: informed c onsent obtained, photo of lesion Prep: Betadine Anesthesia: 1% lidocaine , local Incision type: DermaBlade used for shave excision , Drysol , electrocautery Post-procedure: H2O2 , dressing appl ied , patient tolerated procedure well , instructed in wound care , specimen(s) sent to pathology , Vinegar water wash bid, Vaseline Progress Notes * SHAMA CAIOB:[birth year] (69 yo F)Acc No.[id number]:11/21/2024 Progress Notes Patient: NELLY TOMAS Provider: Teresa Oliver M.D. :1955 A ge:69 Y S ex:Female Date:11/21/2024 Address:[address] [place] [address] [address], [place], [id number] Subjective: * Chief Complaints: * 1 . Freeze off spot & 4 week ckup. * HPI: D ermatology: The pt is here today for minor surgery to remove a suspicious skin lesion of the left forearm. Pt states she saw Rheumatology and she wants her to go back on Celebrex but pt would like to discuss this before going back on it. 69 year old female presents with c/o skin lesion. * ROS: C ARDIOLOGY: no C hest pain. n o S hortness of breath. ? G ASTROENTEROLOGY: no N ausea. n o [...] Hospitalization/Major Diagno stic Procedure: inder kwok , [facility] chest pain 03/15-03/15, [facility] ER-Elevated BP 02/22/2020. * Family History: [...] intravaginally 2 times a week , Taking Hyoscyamine Sulfate 0.125 MG Tablet [...] capsules Orally Two times a day , Taking Triamterene-HCTZ 37.5-25 MG Tablet 1/2 tablet Orally Once a day , Taking Rosuvastatin Calcium 40 MG Tablet 1 tab(s) orally once a day , Taking Metoprolol Succinate ER 50 MG Tablet Extended Release 24 Hour 1 tab(s) orally once a day , Not-Taking buPROPion HCl ER (SR) 100 MG Tablet Extended Release 12 Hour 1 tablet in the morning Orally Once a day , Not-Taking Oxazepam 15 MG Capsule 1 cap(s) orally three times a day as needed , Not-Taking chlordiazePOXIDE HCl 5 MG Capsule 1 capsule Orally Three times a day , Medication List reviewed and reconciled with the patient * Allergies: C ipro: hives, Cefdinir: Hives. Objective: * Vitals: W t: 190.0, Temp: 97.8, BP: 130/80, HR: 70, Nurse: ROSI, Ht: 66.50, BMI:30.2. * Examination: G eneral Examination: General Appearance: a ppears healthy , Color good , pleasant. H eart: R SR. S kin: d orsum of the left forearm, 2 cm x 1 cm, price lentiginous appearing lesion, flat. * Physical Examination: Drawing:[id number] 2_Pro Assessment: * Assessment: 1. L entigo - L81.4 (Primary) Plan: * Treatment: Value Reference Range S urgical Pathology View Report - * Deb Lopes 02/05/20 01:02:10 PM EDT > See phone encounter * Procedures: E xcision, skin lesion: Consent: i nformed consent obtained, photo of lesion. P rep: B etadine. A nesthesia: 1 % lidocaine , local. I ncision type: D ermaBlade used for shave excision , Drysol , electrocautery. P ost-procedure: H 2O2 , dressing applied , patient tolerated procedure well , instructed in wound care , specimen(s) sent to pathology , Vinegar water wash bid, Vaseline. * Procedure Codes: 1 1302 SHAVE LESION,TRUNK,ARMS,LEGS 1.1 TO 2.0 CM, G2211 Complex e/m visit add on * Follow Up: 2 Months * Images: Billing Information: * Visit Code: 58412 Office Visit, Est Pt., Level 2. Modifiers: 25 * Procedure Codes: 52380 SHAVE LESION,TRUNK,ARMS,LEGS 1.1 TO 2.0 CM. G2211 Complex e/m visit add on. * Electronic signature of Teresa Oliver MD on 06/17/2025 at 08:52 AM EST Sign off status: Pending * Provider: Teresa Oliver M.D. Date: 11/21/2024 Generated for Krzysztof howard/Nirmal/eTransmitting on: 08/17/2024 08:52 AM EST History and Physical Notes * HPI (History of Present Illness) Category Sub-Category Detail Notes Category Not es Dermatology skin lesion Examination Category Sub-Category Detail Notes Category Not es General Examination Heart: RSR General Appearance: appears healthy , Co william good , pleasant Skin: dorsum of the left f orearm, 2 cm x 1 cm, price lentiginous appearing lesion, flat
--- OUTSIDE RECORDS SUMMARY | 2025-01-30 05:00 | XMS_ITS ---
Author Organization [facility] Address [address] [facility] [address] [place] [id number] Care Team Providers Care Braille Translator Name Role Phone Teresa Oliver Primary Care Provider Allergies Allergen (clinical drug ingredient) Drug/Non Drug Allergy documented on EMR Reaction Allergy Type Onset Date Status cefdinir Cefdinir Hives Drug Allergy Active ciprofloxacin Cipro hives Drug Allergy Act humberto Results Component Value Reference Range Notes P-Basic Metabolic Panel (BMP ) Reviewed date:02/04/2025 01:02:18 PM Interpretation:Cr 1.03, gfr 59 Performing Lab: Notes/Report: Test performed by [facility] [address] [place] [address] , [address], [place] [address] Rhys Bacon MD, Pre School Manager CLIA: [id number] Sodium 136 135-145 mmol/L Potassium 4.3 3.5-5.3 mmol/L Chloride 99 97-108 mmol/L CO2 25 20-32 mmol/L Glucose 89 65-99 mg/dL BUN 15 8-23 mg/dL Creatinine 1.03 0.50-1.00 mg/dL Calcium 10.0 8.6-10.4 mg/dL eGFR by Creatinine 59 >59 mL/min/1.73m2 P-Lipid Panel Reviewed date:02/04/2025 01:02:18 PM Interpretation:chol 286, trigs 259, chol/hdl 4.69non-hdl 225, ldl 173 Performing Lab: Notes/Report: Test performed by [facility] [address] [facility] [address], [place] [address] Rhys Bacon MD, Pre School Manager ELADIO: [id number] Cholesterol 286 <200 mg/dL Triglycerides 259 <150 mg/dL HDL Cholesterol 61 >39 mg/dL Cholesterol / HDL Ratio 4.69 0.00-4.44 Ratio Non-HDL Cholesterol 225 <130 mg/dL LDL Cholesterol (Calculation) 173 <130 mg/dL LDL Cholesterol Levels* Less than 100 mg/dL Optimal 100 to 129 mg/dL Near Optimal/ Above Optimal 130 to 159 mg/dL Borderline High 160 to 189 mg/dL High 190 mg/dL and above Very High * Categories as recommended by the 2004 ATPIII guidelines LDL/HDL Ratio 2.8 <3.3 Ratio Test Date: 01/30/2025 LDL Results: 173 Units: mg/dL % Change: +78% LDL Cholesterol Patient History Test Date: 01/22/2023 LDL Results: 80 Units: mg/dL % Change: - Test Date: 09/20/2023 LDL Results: 97 Units: mg/dL % Change: +21% REASON FOR VISIT 2 months, Needs Prevnar vaccine Medications Medication SIG (Take, Route, Frequency, Duration) Notes Start Date End Date Status Oxazepam 15 MG 1 cap(s) orally thre e times a day as needed 11/22/2023 Active Losartan Potassium 25 MG 1 tablet Orally Once a day; Duration: 90 days Active Gabapentin 100 MG 2 capsules Orally Tw o times a day; Duration: 30 days 01/28/2025 Active DULoxetine HCl 30 MG TAKE 1 CAPSULE BY M OUTH DAILY; Duration: 90 days Active Metoprolol Succinate ER 50 MG 1 tab(s) orally once a day; Duration: 90 days Active Rosuvastatin Calcium 40 MG 1 tab(s) oral ly once a day; Duration: 90 days Active Triamterene-HCTZ 37.5-25 MG 1/2 tablet O rally Once a day; Duration: 90 days Active Hyoscyamine Sulfate 0.125 MG 1 tablet un tanika the tongue and allow to dissolve as needed Sublingual three times a day as needed 02/18/2024 Active Vivelle-Dot 0.05 MG/24HR 1 patch to skin Transdermal Two times a Week; Duration: 30 day(s) Active Estrace 0.1 MG/GM as directed intravaginally 2 times a week Active Vitamin D3 50 MCG (1999) 1 cap(s) ora lly once a day Active Hydroxychloroquine Sulfate 200 MG as directed Orally bid Activ e Progesterone 100 MG 1 capsule Orally Onc e a day Active Problems Problem Type SNOMED Code ICD Code Onset Dates Problem Status W/U Status Risk Notes Problem Inflammatory polyarthropathy (500980176) Inflammatory polyarthropathy (M06.4) Active confirmed Vital Signs Blood pressure systolic 122 mm Hg 01/31/20 25 Blood pressure diastolic 76 mm Hg 025 Heart Rate 74 /min 01/30/2025 Height 66.50 in 01/30/2025 Weight 189.4 lbs 01/30/2025 BMI 30.11 kg/m2 01/30/2025 Encounters Encounter Location Date Provider Diagnosis [facility] [address] [facility] [address] [facility] [address] [place] [id number] 01/30/2025 Teresa Oliver Essential hypertensi on I10 ; Renal insufficiency N28.9 ; Arthritis M19.90 ; Arthropathy of hand M19.049 ; Hyperlipidemia, unspecified E78.5 ; Mixed hyperlipidemia E78.2 ; Anxiety F41.9 ; Depression with anxiety F41.8 ; Lumbar back pain M54.50 ; Inflammatory polyarthropathy M06.4 and BMI 30.0-30.9,adult Z68.30 Assessments Encounter Date Diagnosis (ICD Code) Assessment Notes Treatment Notes Treatment Clinical Notes Section Notes 01/30/2025 Essential hypertension (ICD-10 - I10) 01/30/2025 Renal insufficiency (ICD-10 - N28.9) 01/30/2025 Arthritis (ICD-10 - M19.90) 01/30/2025 Arthropathy of hand (ICD-10 - M19.049) 01/30/2025 Hyperlipidemia, unspecified (ICD-10 - E78.5) 01/30/2025 Mixed hyperlipidemia (ICD-10 - E78.2) 01/30/2025 Anxiety (ICD-10 - F41.9) 01/30/2025 Depression with anxiety (ICD-10 - F41.8) 01/30/2025 Lumbar back pain (ICD-10 - M54.50) 01/30/2025 Inflammatory polyarthropathy (ICD-10 - M06.4) 01/30/2025 BMI 30.0-30.9,adult (ICD-10 - Z68.30) Plan Of Treatment Next Appt Details Follow Up: 6 Months, Reason: Provider Name:Teresa Lux , 08/10/2025 09:30:00 AM, [address] [facility] [address] [facility], [address], [place], [place], [id number], Progress Notes * SHAMA YEBOAHOB:[birth year] (69 yo F)Acc No.[id number]:01/30/2025 Progress Notes Patient: ELYSSA TOMAS Provider: Teresa Oliver M.D. :1955 A ge:69 Y S ex:Female Date:01/30/2025 Address:[address] [place], [id number] Subjective: * Chief Complaints: * 1 . 2 months. 2. Needs Prevnar vaccine. * HPI: C ardiology: Pt here checkup on Hyperlipidemia, Hypertension and to check the place on her arm. Pt has no other concerns today. Pt got blood work done at Rheumatology 01/26/25- See docs. State GFR was 59. Pt is fasting. * ROS: D ERMATOLOGY: no R mark. [...] Hospitalization/Major Diagno stic Procedure: inder kwok , [facility] chest pain 03/15-03/15, [facility] ER-Elevated BP 02/22/2020. * [...] times a day as needed , Taking Triamterene-HCTZ 37.5-25 MG Tablet 1/2 [...] Orally Two times a day , Taking Losartan Potassium 25 MG Tablet 1 tablet Orally Once a day , Taking Oxazepam 15 MG Capsule 1 cap(s) orally three times a day as needed , Discontinued buPROPion HCl ER (SR) 100 MG Tablet Extended Release 12 Hour 1 tablet in the morning Orally Once a day , Discontinued chlordiazePOXIDE HCl 5 MG Capsule 1 capsule Orally Three times a day , Medication List reviewed and reconciled with the patient * Allergies: C ipro: hives, Cefdinir: Hives. Objective: * Vitals: W t: 189.4, Temp: 98.2, BP: 122/76, HR: 74, Nurse: pe, Ht: 66.50, BMI:30.11. * Examination: G eneral Examination: General Appearance: N AD. H EENT: u nremarkable.?Oral cavity: n o lesions, mucosa moist and WNL, no erythema. N richard: s upple, no lymphadenopathy. C hest: n ormal shape and expansion. H eart: R SR. L ungs: c lear to auscultation. A bdomen: s oft and nontender, hyperactive BS. N eurologic Exam:?see EMG/NCV. S kin: n ormal, no rash. P eripheral pulses: n ormal . B ack:? mild dorsal kyphosis. E xtremities: n o leg edema, keloid left forearm 1.25 cm. ? Assessment: * Assessment: 1. E ssential hypertension - I10 (Primary) 2 . R enal insufficiency - N28.9? 3. A rthritis - M19.90 4 . A rthropathy of hand - M19.049? 5. H yperlipidemia, unspecified - E78.5 6 . M ixed hyperlipidemia - E78.2 7 . A nxiety - F41.9 8 . D epression with anxiety - F41.8 9 . L umbar back pain - M54.50 1 0. I nflammatory polyarthropathy - M06.4 1 1. B ND 30.0-30.9,adult - Z68.30 Plan: * Treatment: Value Reference Range B UN 15 8-23 - mg/dL * C alcium 10.0 8.6-10.4 - mg/dL * C hloride 99 97-108 - mmol/L * C O2 25 20-32 - mmol/L * C reatinine 1.03 H 0.50-1.00 - mg/dL * G lucose 89 65-99 - mg/dL * P otassium 4.3 3.5-5.3 - mmol/L * S odium 136 135-145 - mmol/L * e GFR by Creatinine 59 L >59 - mL/min/1.73m2 * Deb Lopes 02/05/20 25 01:02:10 PM EDT > See phone encounter 2.?Hyperlipidemia, unspecified?LAB: P-Lipid Panel (Collection Date & Time - 01/30/2025 10:36 AM)?chol 286, trigs 259, chol/hdl 4.69non-hdl 225, ldl 173* Value Reference Range C holesterol / HDL Ratio 4.69 H 0.00-4.44 - Ratio * C holesterol 286 H <200 - mg/dL * H DL Cholesterol 61 >39 - mg/dL * L DL Cholesterol (Calculation) 173 H <130 - mg/d L * L DL/HDL Ratio 2.8 <3.3 - Ratio * N on-HDL Cholesterol 225 H <130 - mg/dL * T riglycerides 259 H <150 - mg/dL * MosesDeb bartlett Ann 02/05/20 25 01:02:10 PM EDT > See phone encounter * Procedure Codes: G 2211 Complex e/m visit add on, 1036F [employer]BAC[employer] NON-USER, G8950 PREHTN/HTN BP DOC INDCD F/U DOC, G8752 MOST RECENT SYSTOLIC BP < 140MM HG, G8754 MOST RECENT DIASTOLIC BP < 90MM HG * Follow Up: 6 Months * Images: Billing Information: * Visit Code: 33569 Office Visit, Est Pt., Level 4. * Procedure Codes: G2211 Complex e/m visit add on. 1036F TOBACCO NON-USER. G8950 PREHTN/HTN BP DOC INDCD F/U DOC. G8752 MOST RECENT SYSTOLIC BP < 140MM HG. G8754 MOST RECENT DIASTOLIC BP < 90MM HG. * Electronic signature of Teresa Oliver MD on 06/17/2025 at 08:53 AM EST Sign off status: Pending * Provider: Teresa Oliver M.D. Date: 0 01/30/2025 Generated for Krzysztof howard/Nirmal/Jose Albertoitting on: 08/17/2024 08:53 AM EST History and Physical Notes * Examination Category Sub-Category Detail Notes Category Not es General Examination HEENT: unremarkable Heart: RSR Lungs: clear to auscultatio n Abdomen: soft and nontender, hyperactive BS Extremities: no leg edema, keloid left forearm 1.25 cm General Appearance: NAD Skin: normal, no rash Neurologic Exam: see EMG/NCV Neck: supple, no lymphaden opathy Oral cavity: no lesions, mucosa m oist and WNL, no erythema Peripheral pulses: normal Back: mild dorsal kyphosis Chest: normal shape and exp ansion
--- OUTSIDE RECORDS SUMMARY | 2025-03-30 08:50 | XMS_ITS | Encounter Summary ---
[facility] Address [address] [place] [address] Care Team Providers Care Chair Mechanic Name Role Phone Hernandez Oliver MD Primary Care Provider [phone] Reason for Referral * Diagnostic Imaging (Routine) - Closed Specialty Diagnoses / Procedures Referred By Contact Referred To Contact Obstetrics and Gynecology Diagnoses Postmenopause bleeding Procedures Non-ob Transvaginal Don De León APRN [address] [place] [address] Phone: tel: fax: [facility] [address] [address] Phone: tel: fax: Referral ID Status Reason Start Date Expiration Date Visits Re quested Visits Authorized [id number] Closed 03/27/2025 06/26/2026 1 1 Reason for Visit * Diagnostic Imaging (Routine) - Closed Specialty Diagnoses / Procedures Referred By Contact Referred To Contact Obstetrics and Gynecology Diagnoses Postmenopause bleeding Procedures US Non-ob Transvaginal Don De León APRN 1700 [facility] [address] [place] [address] Phone: tel: fax: [facility] [address] [facility] [address] [place] [address] Phone: tel: fax: Referral ID Status Reason Start Date Expiration Date Visits Re quested Visits Authorized [id number] Closed 03/27/2025 06/26/2026 1 1 Encounter Details Date Type Department Care Team (Latest Contact Info) Description 03/30/2025 9:50 AM EDT Hospital Encounter [facility] [address] [facility] [address] [place] [phone] Postmenopause bleeding Social History Tobacco Use Types Packs/Day Years [...] Description 07/27/2025 10:40 AM EST Office Visit [facility] [address] [facility] [address] [place] [phone] Jamie Glass MD 1700 [facility] [address] [place] [address] 08/07/2025 9:15 AM EST Office Visit [facility] [address] [facility] [address] [place] [phone] Bashir Norman MD [address]20 [facility] [address] [place] [address] 02/11/2026 10:15 AM EDT Office Visit [facility] [address] [facility] [address] [place] [address] Don De León, HEAD OF MOBILE [address] [facility] [address] [place] [address] documented as of this encounter Procedures Procedure Name Priority Date/Time Associated Diagnosis Comments US NON-OB TRANSVAGINAL Routine 03/30/2025 10:10 AM EDT Postmenopause bleeding documented in this encounter Results * US Non-ob Transvaginal (03/30/2025 10:10 AM EDT) Anatomical Region Laterality Modality Body Ultrasound 03/30/2025 10:0 5 AM EDT Narrative 04/01/2025 12:29 PM EDT PAT NAME: NELLY CAI MED REC#: [id number] DA: [id number] PAT GEND: F PAT TYPE: O EXAM JABIER: [id number] REF PHYS DE LEÓN, DON Indication ======== 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 View: Adequate view Uterus ====== Uterus: Normal Uterus position: retroflexed Description of uterine malformations: none Myometrium: Homogeneous Endometrium: Uniform, thickened for age Cervix details: Fluid in cervical canal Uterus long 41 mm Uterus ap 35 mm Uterus tr 46 mm Uterus Vol 34.6 cm Endometrial thickness, total 7.0 mm Cervical length 20.0 mm Right Ovary Rt ovary: Visualized Rt ovary D1 35.6 mm Rt ovary D2 28.0 mm Rt ovary D3 17.9 mm Rt ovary Vol 9.3 cm Rt ovarian cyst(s): Cysts identified Rt ovarian cyst D1 26.0 mm Rt ovarian cyst D2 17.0 mm Rt ovarian cyst D3 22.0 mm Rt ovarian cyst mean 21.7 mm Rt ovarian cyst vol 5.091 cm Rt ovarian cyst findings: Simple cyst Left Ovary ========= Lt ovary: Not visualized Cul de Sac ========= Normal. No free fluid visualized Impression ========= Endometrium may be thickened for age. In the presence of bleeding, endometrial pathology cannot be excluded. Simple cyst of right ovary. The clinical suspicion for malignancy is low. Recommendation If not already performed endometrial sampling should be considered. A repeat ultrasound in ~ 6 weeks is recommended to document resolution of the cyst. If clinically appropriate, this study should be ordered in the early follicular phase of the cycle. 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 View: Adequate view Uterus ====== Uterus:Normal Uterus position:retroflexed Description of uterine malformations:none Myometrium:Homogeneous Endometrium:Uniform, thickened for age Cervix details:Fluid in cervical canal Uterus long41 mm Uterus ap35 mm Uterus tr46 mm Uterus Vol34.6 cm Endometrial thickness, total7.0 mm Cervical uvojwz19.0 mm Right Ovary Rt ovary:Visualized Rt ovary D135.6 mm Rt ovary D228.0 mm Rt ovary D317.9 mm Rt ovary Vol9.3 cm Rt ovarian cyst(s):Cysts identified Rt ovarian cyst D126.0 mm Rt ovarian cyst D217.0 mm Rt ovarian cyst D322.0 mm Rt ovarian cyst mean21.7 mm Rt ovarian cyst vol5.091 cm Rt ovarian cyst findings:Simple cyst Left Ovary ========= Lt ovary:Not visualized Cul de Sac ========= Normal. No free fluid visualized Impression ========= Endometrium may be thickened for age. In the presence of bleeding,endometrial pathology cannot be excluded. Simple cyst of right ovary. The clinical suspicion for malignancy islow. Recommendation If not already performed endometrial sampling should be considered. A repeat ultrasound in ~ 6 weeks is recommended to document resolution ofthe cyst. If clinically appropriate, this study should be ordered in theearly follicular phase of the cycle. Transporter Driver: Sary Garcia RDOK Physician: Ro Alcala MD Electronically signed by: Ro Alcala MD at: 12:29 us Dno De León APRN IMG US ORDERABLES Final Resu lt documented in this encounter Visit Diagnoses Diagnosis Postmenopause bleeding Postmenopausal bleeding documented in this encounter Care Teams Chair Mechanic Relationship Specialty Start Date End Date Hernandez Oliver MD [address] [place] [address] [address] [facility] [[email or web address] [address] [place] [address] PCP - General Family Medicine 12/05/16 documented as of this encounter
--- OUTSIDE RECORDS SUMMARY | 2025-04-17 08:30 | XMS_ITS ---
Author Organization [facility] Address [address] [place] [id number] Care Team Providers Care Wall Attendant Name Role Phone Teresa Oliver Primary Care Provider Dennise Gutiérrez Unavailable [phone] Allergies Allergen (clinical drug ingredient) Drug/Non Drug Allergy documented on EMR Reaction Allergy Type Onset Date Status cefdinir Cefdinir Hives Drug Allergy Active ciprofloxacin Cipro hives Drug Allergy Act humberto REASON FOR VISIT discuss weight loss med Medications Medication SIG (Take, Route, Frequency, Duration) Notes Start Date End Date Status Hydroxychloroquine Sulfate 200 MG as directed Orally bid Not-T aking Zepbound 2.5 MG/0.5ML 0.5 mL Subcutaneous 02/26/20 25 Not-Taking sulfaSALAzine 500 MG 1 tablet Orally Onc e a day BID Active Losartan Potassium 25 MG 1 tablet Orally Once a day; Duration: 90 days Active Zepbound 2.5 MG/0.5ML 2.5 mg Subcutaneou s once a week 04/17/2025 Active Triamterene-HCTZ 37.5-25 MG 1/2 tablet Orally Once a day; Duration: 90 days Active Rosuvastatin Calcium 40 MG 1 tab(s) oral ly once a day; Duration: 90 days Active Gabapentin 300 MG 1 capsule Orally twi ce a day; Duration: 30 days 03/26/2025 Active Oxazepam 15 MG 1 cap(s) orally thre e times a day as needed 11/22/2023 Active DULoxetine HCl 30 MG TAKE 1 CAPSULE BY MOUTH DAILY; Duration: 90 days Active Progesterone 100 MG 1 capsule Orally Onc e a day Active Vitamin D3 50 MCG (1999 UT) 1 cap(s) orally once a day Active Metoprolol Succinate ER 50 MG 1 tab(s) orally once a day; Duration: 90 days Active Estrace 0.1 MG/GM as directed intravaginally 2 times a week Active Hyoscyamine Sulfate 0.125 MG 1 tablet under the tongue and allow to dissolve as needed Sublingual three times a day as needed 02/18/2024 Active Vivelle-Dot 0.05 MG/24HR 1 patch to skin Transdermal Two times a Week; Duration: 30 day(s) Active Vital Signs Blood pressure systolic 124 mm Hg 04/17/20 25 Blood pressure diastolic 72 mm Hg 025 Heart Rate 76 /min 04/17/2025 Height 66.50 in 04/17/2025 Weight 185.4 lbs 04/17/2025 BMI 29.47 kg/m2 04/17/2025 Encounters Encounter Location Date Provider Diagnosis [facility] [address] [facility] [address] [facility] [address] [place] [id number] 04/17/2025 Dennise Gutiérrez BMI 29.0-29.9,adult Z68.29 and Essential hypertension I10 Assessments Encounter Date Diagnosis (ICD Code) Assessment Notes Treatment Notes Treatment Clinical Notes Section Notes 04/17/2025 BMI 29.0-29.9,adult (ICD-10 - Z68.29) 04/17/2025 Essential hypertension (ICD-10 - I10) Plan Of Treatment Medication Medication Name Sig Start Date Stop Date Notes Zepbound 2.5 MG/0.5ML 2.5 mg Subcutaneous once a week 03/24 Next Appt Details Follow Up: 3 Months, Reason: Provider Name:Teresa Lux er, 08/10/2025 09:30:00 AM, [address] [place] [address] [facility], [address], [place] [id number], Progress Notes * SHAMA YEBOAHOB:[birth year] (69 yo F)Acc No.[id number]:04/17/2025 Progress Notes Patient: ELYSSA TOMAS Provider: ERICA Troy :1955 A ge:69 Y S ex:Female Date:04/17/2025 Address[address] [place], [id number] Pcp:Teresa Oliver Subjective: * Chief Complaints: * 1 . Discuss weight loss med. * HPI: C onstitutional: 69 year old female presents with c/o weight loss P t sts she is here today to discuss her weight loss medication. Pt sts she would like to discuss whether or not Zepbound is eligible for her insurance to pay for it instead of her paying out of pocket. Pt sts that last month it cost 500 dollars. Pt sts she did finish the Zepbound and is due for her next injection, but sts she is out of it. * ROS: D ERMATOLOGY: no R mark. [...] Hospitalization/Major Diagno stic Procedure: inder kwok , [facility] chest pain 03/15-03/15, [facility] ER-Elevated BP 02/22/2020. * Family History: [...] ouside US: yes. * Medications: T aking sulfaSALAzine 500 MG Tablet 1 tablet Orally Once a day , Notes to Pharmacist: BID, Taking Vivelle-Dot 0.05 MG/24HR Patch Twice Weekly 1 patch to skin Transdermal Two times a Week , Taking Progesterone 100 MG Capsule 1 capsule Orally Once a day , Taking Vitamin D3 50 MCG (2000 UT) Capsule 1 cap(s) orally once a day , Taking Estrace 0.1 MG/GM Cream as directed intravaginally 2 times a week , Taking Hyoscyamine Sulfate 0.125 MG Tablet Sublingual 1 tablet under the tongue and allow to dissolve as needed Sublingual three times a day as needed , Taking Metoprolol Succinate ER 50 MG Tablet Extended Release 24 Hour 1 tab(s) orally once a day , Taking DULoxetine HCl 30 MG Capsule Delayed Release Particles TAKE 1 CAPSULE BY MOUTH DAILY , Taking Oxazepam 15 MG Capsule 1 cap(s) orally three times a day as needed , Taking Rosuvastatin Calcium 40 MG Tablet 1 tab(s) orally once a day , Taking Gabapentin 300 MG Capsule 1 capsule Orally twice a day , Taking Triamterene-HCTZ 37.5-25 MG Tablet 1/2 tablet Orally Once a day , Taking Losartan Potassium 25 MG Tablet 1 tablet Orally Once a day , Not-Taking Hydroxychloroquine Sulfate 200 MG Tablet as directed Orally bid , Not-Taking Zepbound 2.5 MG/0.5ML Solution Auto-injector 0.5 mL Subcutaneous , Notes: Summer Sailnas 02/25/2025 11:54:50 AM EDT > Not started by us. Rx was prescribed by [facility] Medication List reviewed and reconciled with the patient * Allergies: C ipro: hives, Cefdinir: Hives. Objective: * Vitals: W t: 185.4, Temp: 98.4, BP: 124/72, HR: 76, Nurse: shukri, Ht: 66.50, BMI:29.47. * Examination: G eneral Examination: General Appearance: N AD. C hest: n ormal shape and expansion. H eart: R SR. L ungs: c lear to auscultation. Assessment: * Assessment: 1. B PA 29.0-29.9,adult - Z68.29 (Primary) 2 . E ssential hypertension - I10 Plan: * Treatment: * Procedure Codes: G 2211 Complex e/m visit add on, 1036F TOBACCO NON-USER, G8420 BMI<30 AND >=22 CALC & DOCU, G8950 PREHTN/HTN BP DOC INDCD F/U DOC, G8752 MOST RECENT SYSTOLIC BP < 140MM HG, G8754 MOST RECENT DIASTOLIC BP < 90MM HG, 3074F SYST BP LT 130 MM HG, 3078F DIAST BP < 80 MM HG * Follow Up: 3 Months * Images: Billing Information: * Visit Code: 44949 Office Visit, Est Pt., Level 3. * Procedure Codes: G2211 Complex e/m visit add on. 1036F TOBACCO NON-USER. G8420 BMI<30 AND >=22 CALC & DOCU. G8950 PREHTN/HTN BP DOC INDCD F/U DOC. G8752 MOST RECENT SYSTOLIC BP < 140MM HG. G8754 MOST RECENT DIASTOLIC BP < 90MM HG. 3074F SYST BP LT 130 MM HG. 3078F DIAST BP < 80 MM HG. * Electronic signature of ERICA Bright on 06/17/2025 at 08:52 AM EST Sign off status: Pending * Provider: ERICA Troy Date: 0 04/17/2025 Generated for Krzysztof howard/Nirmal/Robertsmitting on: 08/17/2024 08:52 AM EST History and Physical Notes * HPI (History of Present Illness) Category Sub-Category Detail Notes Category Not es Constitutional weight loss Pt sts she is he re today to discuss her weight loss medication. Pt sts she would like to discuss whether or not Zepbound is eligible for her insurance to pay for it instead of her paying out of pocket. Pt sts that last month it cost 500 dollars. Pt sts she did finish the Zepbound and is due for her next injection, but sts she is out of it Examination Category Sub-Category Detail Notes Category Not es General Examination Heart: RSR Lungs: clear to auscultatio n General Appearance: NAD Chest: normal shape and exp ansion
--- OUTSIDE RECORDS SUMMARY | 2025-05-11 09:20 | XMS_ITS | Encounter Summary ---
[facility] Address [address] [place] [address] Care Team Providers Care Quality Engineering Manager Name Role Phone Hernandez Oliver MD Primary Care Provider [phone] Reason for Visit * Reason Comments Consult Surgery referral by Francesca Cheney unsuccessful endometrial bx Encounter Details Date Type Department Care Team (Late st Contact Info) Description 05/11/2025 10:20 AM EDT Office Visit [facility] [address] [phone] Jamie Glass MD [address] [place] [id number] Post-menopause on HRT (hormone replacement therapy) (Primary Dx) Social History Tobacco Use Types Packs/Day Years [...] AM EDT documented as of this encounter Last Filed Vital Signs Vital Sign Reading Time Taken Comments Blood Pressure - - Pulse - - Temperature - - Respiratory Rate - - Oxygen Saturation - - Inhaled Oxygen Concentration - - Weight 83.5 kg (184 lb) 05/11/2025 10:35 AM EDT Height 170.2 cm (5' 7.01 ) 05/11/2025 10:35 AM E DT Body Mass Index 28.81 05/11/2025 10:35 AM EDT documented in this encounter Progress Notes * Jamie Glass MD - 05/11/2025 10:20 AM EDT Subjective Chief Complaint Patient presents with Consult Surgery referral by Francesca Cheney unsuccessful endometrial bx Nelly Cai is a 69 y.o. year old . No LMP recorded (lmp unknown). Patient is postmenopausal. She is seen in referral from BUSINESS ETHICS PROFESSOR re: PMB on HRT with thickened endometrium on TVS. Images reviewed. Long-term HRT. Within the last year changed from combination oral HRT to transdermal with oral progesterone. BUSINESS ETHICS PROFESSOR unable to pass Pipelle due to stenotic nature of cervix Discussed rationale for the need to sample endometrium Discussed the effects of postmenopausal HRT on endometrial thickness. Discussed that my index of suspicion for malignancy is quite low. I suspect that in her change of HRT regimen she has a relative paucity of progestational effect on the endometrium. I have suggested a repeat attempt to perform an office endometrial sampling and if the second attempt fails then plan hsyteroscopy/D&C with Myosure. She is unable to stay today as she has a number of commitments today, tonight and tomorrow out of town. The following portions of the patient's history were reviewed and updated as appropriate:current medications and allergies Social History Tobacco Use Smoking status: Never Passive exposure: Never Smokeless tobacco: Never Review of Systems Constitutional POS: nothing reported NEG: anorexia or night sweats Genitourinary POS: nothing reported NEG: dysuria or hematuria Gastointestinal POS: nothing reported NEG: bloating, change in bowel habits, melena, or reflux symptoms Integument POS: nothing reported NEG: moles that are changing in size, shape, color or rashes Breast POS: nothing reported NEG: persistent breast lump, skin dimpling, or nipple discharge Objective Ht 170.2 cm (67.01 ) Wt 83.5 kg (184 lb) LMP (LMP Unknown) No BMI 28.81 kg/m?? No Physical exam performed today Lab Review CBC, CMP, and [id number] Imaging Pelvic ultrasound images independantly reviewed - normal pelvic TVS, but endometrium thickened for age Assessment PMB on HRT initial office endometrial bx failed Plan Attempt office endometrial bx and if fails plan hysteroscopy D&C with myosure. I am anticipating the need to increase the dose of progesterone The importance of keeping all planned follow-up and taking all medications as prescribed was emphasized. Follow up for annual exam and endometrial bx attempt 3-4 weeks No orders of the defined types were placed in this encounter. This note was electronically signed. Jamie Glass MD May 11, 2025 Part of this note may be an electronic fixture fabricator repairer/translation of spoken language to printed textusing the [employer] and [employer]ation System. documented in this encounter Plan of Treatment Upcoming Encounters Date Type Department Care Team (Late st Contact Info) Description 07/27/2025 10:40 AM EST Office Visit [facility] [address] [facility] [address] [place] [address] Jamie Glass MD [address] [facility] [address] [place] [address] 08/07/2025 9:15 AM EST Office Visit [facility] [address] [facility] [address] [place] [address] Bashir Norman MD [address] [facility] [address] [place] [address] 02/11/2026 10:15 AM EDT Office Visit [facility] [address] [facility] [address] [place] [phone] Francesca Cheney APRN [address] [facility] [address] [place] [address] documented as of this encounter Visit Diagnoses Diagnosis Post-menopause on HRT (hormone replacement therapy)- Primary Need for prophylactic hormone replacement therapy (postmenopausal) documented in this encounter Care Teams Quality Engineering Manager Relationship Specialty Start Date End Date Hernandez Oliver MD [address] [place] [address] [place] [address] PCP - General Family Medicine 12/05/16 documented as of this encounter
--- OUTSIDE RECORDS SUMMARY | 2025-06-11 10:45 | XMS_ITS ---
Author Organization [facility] Address [address] [facility] 36 [facility] [address] [place] [id number] Care Team Providers Care Agricultural Technical Officer Name Role Phone Teresa Oliver Primary Care Provider [phone] Dennise Gutiérrez [phone] Allergies Allergen (clinical drug ingredient) Drug/Non Drug Allergy documented on EMR Reaction Allergy Type Onset Date Status cefdinir Cefdinir Hives Drug Allergy Active ciprofloxacin Cipro hives Drug Allergy Act humberto REASON FOR VISIT sciatic pain Encounters Encounter Location Date Provider Diagnosis [facility] [address] [place] [id number] 06/11/2025 Dennise Gutiérrez Plan Of Treatment Next Appt Details Provider Name:Teresa Lux er, 08/10/2025 09:30:00 AM, [address], [facility] [address], [place], [phone], Progress Notes * JAYANT YEBOAHIEDOB:[birth year] (69 yo F)Acc No.[id number]:06/11/2025 Progress Notes Patient: ELYSSA TOMAS Provider: ERICA Troy :1955 A ge:69 Y S ex:Female Date:06/11/2025 Address:[address] [facility] [address] , [phone] Pcp:Teresa Oliver Subjective: * Chief Complaints: * 1 . Sciatic pain. * ROS: D ERMATOLOGY: no R mark. [...] Diagno stic Procedure: k andrew kwok , [facility] chest pain 03/15-03/15, [facility] ER-Elevated BP 02/22/2020. * Family History: F ather: alive, prostate cancer, hypertension. M other: alive, hypertension, CAD, CABG X4.?Siblings: sister with similar sxs, takes Protonix. C hildren: hypertension, asthma. 2 brother(s) , 2 sister(s) - healthy. 1 son(s) , 2 daughter(s) . . * Social History: C URRENT TOBACCO USE: No S moking Status: Patient does NOT smoke. C affeine: yes, frequency:. Exercise: yes. Home smoke detector use: yes. Marital Status: . New since last visit: none. Past smoking status: no, Smoking status: Does not smoke. Occup. exposure: none. Recreational drug use: no. Alcohol: socially, Type: , Frequency: ,Years: , Determination:. Sexually active: yes. Travel ouside [place]: yes. * Allergies: C ipro: hives, Cefdinir: Hives. Objective: * Vitals: Assessment: Plan: * Treatment: * Images: Billing Information: * Visit Code: * Procedure Codes: * Electronic signature of ERICA Bright on 06/17/2025 at 08:52 AM EST Sign off status: Pending * Provider: ERICA Troy Date: 08/11/2024 Generated for Krzysztof howard/Nirmal/Jese on: 1 08/17/2024 08:52 AM EST
--- OUTSIDE RECORDS SUMMARY | 2025-06-17 08:51 | XMS_ITS | Continuity of Care Document ---
Author Organization [facility] Address [address] [place] [address] Assessment No assessment recorded. Plan of Treatment Reminders Order Date Submit Date Provider Last Modified By Organization Details Last Modified Time Details Appointments None recorded. Lab None recorded. Referral None recorded. Procedures None recorded. Surgeries None recorded. Imaging None recorded. Medication Orders gabapentin 300 mg capsule 2024 025 [facility] [id number], [address] [place] [address], [address], 18:00:24 Patient TargetsNo targets recorded. Patient InstructionsNo instructions recorded. Reason for Referral None Reported. Medical Equipment None Reported. Allergies Allergen ID Allergen Name Allergen Category Reaction Reaction Severity Criticality Documentation Date Start Date Code Code System Note Provider Name and Address Organization Details Recorded Time 274801 Cipro medicatio n Not available Not available Not available 04/09/202589220 3 RxNorm Emily singh [facility] 14:07:11 Medications Name Sig Start Date Stop Date Status Note LastModified by Organization Details LastModified Time estradiol 0.025 mg/24 hr weekly transdermal patch Apply 1 patch every week by transderma l route. active Not Available Not Available No t Available gabapentin 300 mg capsule take three pills by mouth at night at night 2024 active Not Available Not Available Not Avai lable gabapentin 100 mg capsule TAKE TWO CAPSULES BY MOUTH EVERY DAY AT BEDTIME active pt states she is on 300 mg bid Not Available Not Available Not Available sulfasalazi ne active Not Available Not Available Not Available losartan active Not Available Not Avai lable Not Available metoprolol succinate active Not Available Not Available No t Available Triamterene W/Hctz active Not Available Not Available Not Available rosuvastati n active Not Available Not Available Not Available duloxetine active Not Available Not Av ailable Not Available Vitals None Recorded Social History None recorded. Functional Status None recorded. Mental Status None recorded. Family History Nothing Reported. Medical History No medical history recorded. Gynecological HistoryNo gynecological history recorded. Obstetrics History GPAL:G 0 P 0 0 0 0 Past Encounters Encounter ID Performer Location Encounter Start Date Encounter Closed Date Diagnosis/Indication Diagnosis SNOMED-CT Code Diagnosis ICD10 Code Diagnosis IMO Codes Diagnosis Note [id number] ADRIANA EDWARD MD [facility] [address] [facility] [place] [address] 04/09/2025 13:40:17 04/09/2025 14:22:17 Peripheral sensory neuropathy 535797414 G60.8 M54.2 L29.9 [id number] Start Gabapentin at night she gets fairly good control w gabapentin 300mg bid but would rather not take anything. I explained this is almost impossible to cure so she may have to take something for the foreseeabl e future. shes tried PT and this has not helped. Capsaicin cr has helpedreco mmended Capzasin hp tidPatient has tried physical therapy will increase to gabapentin 300mg three tabs qhsstrict sun protecgtio nPatient will call in 12 weeks with progress Health Concerns Section Related Observation LastModified by Organization Detai ls LastModified Time None Recorded Concern Status LastModified by Organization Details LastModified Time None Recorded Payers Encounter Date Sequence Insurance Name Policy Number Policy Romo Covered Member ID Romo Member ID Guarantor Name 04/09/2025 1 [place] Nelly Quinonez Trell [id number] Nelly Devi Cai 04/09/2025 2 [facility] Nelly Quinonez Trell [id number] Nelly Devi Cai Notes Date Note Type Note Provider Name and Address Organization Details Recorded Time 04/09/2025 text/html new ptsevere itchingPer pt dx with Brachioradial pruritus and has tried topicals with no benefit. She has been on Gabapentin 300mg bid with some improvement and states ice packs are helpful. She has been in physical therapy since November with no improvement. Started in Feb4Denies hx of neck injury ADRIANA EDWARD MD [address] [place], [address], [facility] 04/09/2025 18:00:47 OBGyn Episode No OBEpisode recorded.
--- OUTSIDE RECORDS SUMMARY | 2025-06-17 08:51 | XMS_ITS | Clinical Summary ---
Author Organization [facility] Address [address] [place], [place] [address] Care Team Providers Care Fitness And Wellness Manager Name Role Phone Provider, Historical Primary Care Provider Unava ilable Social History Tobacco Use Types Packs/Day Years Used Date Smoking Tobacco: Never Assessed Comments Unknown Sex and Gender Information Value Date Recorded Sex Assigned at Not on file Legal Sex Female 4:12 PM EST Gender Identity Not on file Sexual Orientation Not on file Plan of Treatment Health Maintenance Due Date Last Done Comments Breast Cancer Screening 1956 CT Colonography 1956 Colonoscopy 1956 Colorectal Cancer Screening 1956 FIT-DNA 1956 FIT 1956 FOBT 1956 Hepatitis C Screening 1956 Sigmoidoscopy 1956 Tdap/Td Vaccine >11 yo (1 - Tdap) 11/05/1975 Pneumococcal Vaccines >50 yo (1 of 1 - PCV) 2006 Shingles (Shingrix) (1 of 2) 2006 Osteoporosis Screening 2021 Annual SDOH Screening 07/23/2024 Influenza Vaccine (#1) 2025 RSV 50+ and (1 - 1 -dose 75+ series) 11/05/2031 Haemophilus Influenzae Type B (Hib) Vaccine Aged Out No longer eligible b ased on patient's age to complete this topic Hepatitis A (HepA) Vaccine Aged Out N o longer eligible based on patient's age to complete this topic Hepatitis B (HepB) Vaccine Aged Out N o longer eligible based on patient's age to complete this topic Meningococcal ACWY Aged Out No longer eligible based on patient's age to complete this topic Polio (IPV) Aged Out No longer eligi ble based on patient's age to complete this topic Rotavirus (RV) Vaccine Aged Out No lo nger eligible based on patient's age to complete this topic Care Teams Fitness And Wellness Manager Relationship Specialty Start Date End Date Provider, Historical PCP - General 06/09/10
--- OUTSIDE RECORDS SUMMARY | 2025-06-17 08:51 | XMS_ITS ---
Author Organization Unknown Results OrderDate OrderTestName ResultName ResultDate Value Units Range AbnormalFlag ResultStatus ObservationNotes TestCode ResultCode DateRecorded AccessionNumber DiagnosticSectionCode DiagnosticSectionName Sequence Interpretation Custom CollectionStartDate CollectionEndDate 09/29/2024 00:00:00 P-Comprehensive Metabolic Panel (CMP) eGFR by Creatinine 5610-65-17N97:00:00 54 mL/min/1.73m2 >59 - mL/min/1.73m2 L Francesca Simon 09/30/2024 09:06:15 AM > See phone encounter P-Comprehensive Metabolic Pa bradly (CMP) 09/29/2024 00:00: 00:00:00P-Comprehensive Metabolic Panel (CMP) Gzvuadd0763-60-45X84:00:007.1g/dL6.0-8.3 - g/dLReIker Francesca 09/30/2024 09:06:15 AM > See phone encounter Coding P-Comprehensive Metabolic Pa bradly (CMP) Coding Protein 09/29/2024 00:00: 00:00:00P-Comprehensive Metabolic Panel (CMP) Kloqda9782-67-84N06:00:08082uoxf/C213-114 - mmol/Francesca Santos 09/30/2024 09:06:15 AM > See phone encounter Coding P-Comprehensive Metabolic Pa bradly (CMP) Coding Sodium 09/29/2024 00:00: 00:00:00P-Comprehensive Metabolic Panel (CMP) Uitoipcxa2026-80-38V21:00:004.1mmol/L3.5-5.3 - mmol/LRevFrancesca Keys 09/30/2024 09:06:15 AM > See phone encounter Coding P-Comprehensive Metabolic Pa bradly (CMP) Coding Potassium 09/29/2024 00:00: 00:00:00P-Comprehensive Metabolic Panel (CMP) Pjilwzo7475-70-80K86:00:0092mg/dL65-99 - mg/dLFrancesca Swift 09/30/2024 09:06:15 AM > See phone encounter Coding P-Comprehensive Metabolic Pa bradly (CMP) Coding Glucose 09/29/2024 00:00: 00:00:00P-Comprehensive Metabolic Panel (CMP) Emdbwuxomn4876-65-28D15:00:001.12mg/dL0.50-1.00 - mg/dLFrancesca De Souza 09/30/2024 09:06:15 AM > See phone encounter Coding P-Comprehensive Metabolic Pa bradly (CMP) Coding Creatinine 09/29/2024 00:00: 00:00:00P-Comprehensive Metabolic Panel (CMP)CO2 8781-68-21R45:00:0027mmol/L22-32 - mmol/LRevFrancesca Keys 09/30/2024 09:06:15 AM > See phone encounter Coding P-Comprehensive Metabolic Pa bradly (CMP) Coding CO2 09/29/2024 00:00: 00:00:00P-Comprehensive Metabolic Panel (CMP) Odsuxqjq9523-50-45Z76:00:11082mwpm/L97-108 - mmol/LRFrancesca Colon 09/30/2024 09:06:15 AM > See phone encounter Coding P-Comprehensive Metabolic Pa bradly (CMP) Coding Chloride 09/29/2024 00:00: 00:00:00P-Comprehensive Metabolic Panel (CMP) Ursqunx4005-82-45S77:00:009.7mg/dL8.6-10.4 - mg/dLFrancesca Swift 09/30/2024 09:06:15 AM > See phone encounter Coding P-Comprehensive Metabolic Pa bradly (CMP) Coding Calcium 09/29/2024 00:00: 00:00:00P-Comprehensive Metabolic Panel (CMP)BUN 7953-09-83U40:00:0016mg/dL8-23 - mg/dLFrancesca Swift 09/30/2024 09:06:15 AM > See phone encounter Coding P-Comprehensive Metabolic Pa bradly (CMP) Coding BUN 09/29/2024 00:00: 00:00:00P-Comprehensive Metabolic Panel (CMP) Bilirubin, Nwjxs9894-71-45L06:00:000.3mg/dL<0.2-1.2 - mg/dLFrancesca Swift 09/30/2024 09:06:15 AM > See phone encounter Coding P-Comprehensive Metabolic Pa bradly (CMP) Coding Bilirubin, Total 09/29/2024 00:00: 00:00:00P-Comprehensive Metabolic Panel (CMP)AST (SGOT)0405-19-36J74:00:0018IU/L<5-40 - IU/LRevieweFrancesca Guzman 09/30/2024 09:06:15 AM > See phone encounter Coding P-Comprehensive Metabolic Pa bradly (CMP) Coding AST (SGOT) 09/29/2024 00:00: 00:00:00P-Comprehensive Metabolic Panel (CMP)ALT (SGPT)7490-09-24J89:00:0011IU/L<5-47 - IU/LRevieFrancesca Nichols 09/30/2024 09:06:15 AM > See phone encounter Coding P-Comprehensive Metabolic Pa bradly (CMP) Coding ALT (SGPT) 09/29/2024 00:00: 00:00:00P-Comprehensive Metabolic Panel (CMP) Alkaline Kdcgshiodfr5380-79-50Q87:00:0077IU/L35-121 - IU/LRevieweFrancesca Guzman 09/30/2024 09:06:15 AM > See phone encounter Coding P-Comprehensive Metabolic Pa bradly (CMP) Coding Alkaline Phosphatase 09/29/2024 00:00: 00:00:00P-Comprehensive Metabolic Panel (CMP) Zgpipjz7181-05-18Y14:00:004.3g/dL3.5-5.3 - g/dLReFrancesca Dong 09/30/2024 09:06:15 AM > See phone encounter Coding P-Comprehensive Metabolic Pa bradly (CMP) Coding Albumin 09/29/2024 00:00: 00:00:00P-Comprehensive Metabolic Panel (CMP)A/G Gqzfw1683-73-86N85:00:001.51.1-2.5 -Francesca Swift 09/30/2024 09:06:15 AM > See phone encounter Coding P-Comprehensive Metabolic Pa bradly (CMP) Coding A/G Ratio 09/29/2024 00:00: 00:00:00P-Surgical PathologySurgical Pathology 7090-72-51X87:00:00View Report-Deb Corona 02/04/2025 01:02:10 PM EDT > See phone encounter Coding P-Surgical Pathology Coding Surgical Pathology 11/21/2024 00:00: 00:00:00P-Lipid PanelTriglycerides 6137-17-55G03:00:09526kt/dL<150 - mg/dLDeb Desai 02/04/2025 01:02:10 PM EDT > See phone encounter Coding P-Lipid Panel Coding Triglycerides 01/30/2025 00:00: 00:00:00P-Lipid PanelNon-HDL Cholesterol 9498-42-76A59:00:50923oh/dL<130 - mg/dLDeb Desai 02/04/2025 01:02:10 PM EDT > See phone encounter Coding P-Lipid Panel Coding Non-HDL Cholesterol 01/30/2025 00:00: 00:00:00P-Lipid PanelLDL/HDL Ratio 9309-43-51N79:00:002.8Ratio<3.3 - RatioDeb Corona 02/04/2025 01:02:10 PM EDT > See phone encounter Coding P-Lipid Panel Coding LDL/HDL Ratio 01/30/2025 00:00: 00:00:00P-Lipid PanelLDL Cholesterol (Calculation) 5616-35-42U94:00:78560vm/dL<130 - mg/dLDeb Desai Ann 02/04/2025 01:02:10 PM EDT > See phone encounter Coding P-Lipid Panel Coding LDL Cholesterol (Calculation ) 01/30/2025 00:00: 00:00:00P-Lipid PanelHDL Cholesterol 0996-41-16R73:00:0061mg/dL>39 - mg/dLDeb Corona Ann 02/04/2025 01:02:10 PM EDT > See phone encounter Coding P-Lipid Panel Coding HDL Cholesterol 01/30/2025 00:00: 00:00:00P-Lipid PanelCholesterol 3204-55-83V92:00:50895ms/dL<200 - mg/dLDeb Desai Ann 02/04/2025 01:02:10 PM EDT > See phone encounter Coding P-Lipid Panel Coding Cholesterol 01/30/2025 00:00: 00:00:00P-Lipid PanelCholesterol / HDL Ratio 2826-70-78F37:00:004.82Mpmni1.00-4.44 - RatioDeb Desai Ann 02/04/2025 01:02:10 PM EDT > See phone encounter Coding P-Lipid Panel Coding Cholesterol / HDL Ratio 01/30/2025 00:00: 00:00:00P-Basic Metabolic Panel (BMP)eGFR by Vtnyswrrow4822-27-98T82:00:0059mL/min/1.73m2>59 - mL/min/1.79k9XPkazbknqDeb Pal Ann 02/04/2025 01:02:10 PM EDT > See phone encounter Coding P-Basic Metabolic Panel (BMP ) 01/30/2025 00:00: 00:00:00P-Basic Metabolic Panel (BMP)Sodium 9113-20-49L40:00:42235gugp/D530-555 - mmol/Deb Jeffries Ann 02/04/2025 01:02:10 PM EDT > See phone encounter Coding P-Basic Metabolic Panel (BMP ) Coding Sodium 01/30/2025 00:00: 00:00:00P-Basic Metabolic Panel (BMP)Potassium 8612-90-62Y24:00:004.3mmol/L3.5-5.3 - mmol/LRevDeb Allison Ann 02/04/2025 01:02:10 PM EDT > See phone encounter Coding P-Basic Metabolic Panel (BMP ) Coding Potassium 01/30/2025 00:00: 00:00:00P-Basic Metabolic Panel (BMP)Glucose 1110-66-68I27:00:0089mg/dL65-99 - mg/dLDeb Corona Ann 02/04/2025 01:02:10 PM EDT > See phone encounter Coding P-Basic Metabolic Panel (BMP ) Coding Glucose 01/30/2025 00:00: 00:00:00P-Basic Metabolic Panel (BMP)Creatinine 6243-24-45F86:00:001.03mg/dL0.50-1.00 - mg/dLGerman Desaigh Ann 02/04/2025 01:02:10 PM EDT > See phone encounter Coding P-Basic Metabolic Panel (BMP ) Coding Creatinine 01/30/2025 00:00: 00:00:00P-Basic Metabolic Panel (BMP)CO2 9146-59-07Z06:00:0025mmol/L20-32 - mmol/LRDeb Jernigan Ann 02/04/2025 01:02:10 PM EDT > See phone encounter Coding P-Basic Metabolic Panel (BMP ) Coding CO2 01/30/2025 00:00: 00:00:00P-Basic Metabolic Panel (BMP)Chloride 2133-36-20P76:00:0099mmol/L97-108 - mmol/LRevieDeb Marks 02/04/2025 01:02:10 PM EDT > See phone encounter Coding P-Basic Metabolic Panel (BMP ) Coding Chloride 01/30/2025 00:00:00001/30/2025 00:00:00P-Basic Metabolic Panel (BMP)Calcium 1597-99-13X31:00:0010.0mg/dL8.6-10.4 - mg/dLDeb Corona 02/04/2025 01:02:10 PM EDT > See phone encounter Coding P-Basic Metabolic Panel (BMP ) Coding Calcium 01/30/2025 00:00:00001/30/2025 00:00:00P-Basic Metabolic Panel (BMP)BUN 5134-86-08K24:00:0015mg/dL8-23 - mg/dLDeb Corona 02/04/2025 01:02:10 PM EDT > See phone encounter Coding P-Basic Metabolic Panel (BMP ) Coding BUN 01/30/2025 00:00:00
--- OUTSIDE RECORDS SUMMARY | 2025-06-17 08:51 | XMS_ITS | Data Portability ---
Author Organization [facility] Address [address] [facility] [address] [place] [address] Assessment No assessment recorded. Plan of Treatment Reminders Order Date Submit Date Provider Last Modified By Organization Details Last Modified Time Details Appointments None recorded. Lab None recorded. Referral None recorded. Procedures None recorded. Surgeries None recorded. Imaging None recorded. Medication Orders gabapentin 300 mg capsule 2024 025 [facility] [id number], [address] [place] [address], [address], 18:00:24 Patient TargetsNo targets recorded. Patient InstructionsNo instructions recorded. Reason for Referral None Reported. Medical Equipment None Reported. Allergies Allergen ID Allergen Name Allergen Category Reaction Reaction Severity Criticality Documentation Date Start Date Code Code System Note Provider Name and Address Organization Details Recorded Time 420729 Cipro medicatio n Not available Not available Not available 04/09/202587246 3 RxNorm Emily Brizuela [facility] 14:07:11 Medications Name Sig Start Date Stop [...] ICD10 Code Diagnosis IMO Codes Diagnosis Note [id number] ADRIANA EDWARD MD [facility] [address] [facility] [place] [address] 04/09/2025 13:40:17 04/09/2025 14:22:17 Peripheral sensory neuropathy [id number] G60.8 M54.2 L29.9 5582571 Start Gabapentin at night she gets fairly [...] by Organization Details LastModified Time None Recorded Advance Directives Directive None Recorded Payers Insurance Date Sequence Insurance Name Policy Number Policy Romo Covered Member ID Romo Member ID Guarantor Name 04/08/2025 2 [employer] Nelly Devi Cai [id number] Nelly Quinonez Trell 04/08/2025 1 [place] Nelly Devi Cai [id number] Nelly Quinonez Trell 04/08/2025 1 [place] [id number] Nelly Devi Cai [id number] Nelly Devi Cai Notes Date Note Type [...] of neck injury ADRIANA EDWARD MD [address] [place], [address], [facility] 04/09/2025 18:00:47 OBGyn Episode No OBEpisode recorded.
--- OUTSIDE RECORDS SUMMARY | 2025-06-17 08:52 | XMS_ITS | Clinical Summary ---
Author Organization [facility] Address [address] [place] [address] Care Team Providers Care Dance Therapist Name Role Phone Hernandez Oliver MD Primary Care Provider [phone] Allergies Active Allergy Reactions Criticality Noted Date Comments Cefdinir Hives Medium 08/21/2018 Per H&P Per H&P Ciprofloxacin Hives,Rash Medium 03/16/2016 Per H&P Clarithromycin Other - please docum ent in the comment field Low 08/28/2018 Itching Lactose Other - please docum ent in the comment field Low 03/16/2016 Sulfa Drugs Rash Low 05/14/2019 Medications cholecalciferol (Vitamin D-3) 25 MCG (1000 UT) tablet Take 1,000 Units by mouth 1 (one) time each day. Active DULoxetine (Cymbalta) [address] capsule Take 30 mg by mouth 1 (one) time each day. 10/21/2020 Active estradiol-noreth indrone (ActivElla) 1-0.5 MG tablet Take 1 tablet by mouth 1 (one) time each day. Active hydroCHLOROthiaz rose (Microzide) 12.5 MG capsule Take 12.5 mg by mouth. Active hydrocortisone 2.5 % cream Apply to vulva 2 times daily for 1 week, then daily 12/14/2020 Active losartan (Cozaar) 25 MG tablet TK 1 T PO QD 05/12/2020 Active metoprolol succinate XL (Toprol-XL) 50 MG 24 hr tablet Take 50 mg by mouth. Active estradiol (Estrace) 0.1 MG/GM vaginal cream Insert 1 gram into the vagina twice a week 30 g 3 04/26/2021 Active rosuvastatin (Crestor) 20 MG tablet Take 20 mg by mouth 1 (one) time each day. Active Family History Medical History Relation Name Comments Prostate cancer Father Diabetes Mother Hypertension, benign Mother Stroke Mother Relation Name Status Comments Father Mother Social History Tobacco Use Types Packs/Day Years Used Date Smoking Tobacco: Never Smokeless Tobacco: Never Alcohol Use Standard Drinks/Week Comments Yes 0 (1 standard drink = 0.6 oz pur e alcohol) socially twice a month PHQ-2 Answer Date Recorded Patient Health Questionnaire-2 Score 0 04/26/2021 Comments Unknown Sex and Gender Information Value Date Recorded Sex Assigned at Female 06/26/2021 6:50 PM EST Legal Sex Female 4:40 PM EDT Gender Identity Female 06/26/2021 6:50 PM EST Sexual Orientation Straight 06/26/2021 6: 50 PM EST Last Filed Vital Signs Vital Sign Reading Time Taken Comments Blood Pressure 142/83 06/27/2021 10:12 AM EST Pulse 65 06/27/2021 10:12 AM EST Temperature - - Respiratory Rate - - Oxygen Saturation - - Inhaled Oxygen Concentration - - Weight 76 kg (167 lb 8.8 oz) 06/27/2021 10:12 AM EST Height - - Body Mass Index - - Plan of Treatment Health Maintenance Due Date Last Done Comments [facility]-Bone Density Scan 1955 [facility]-Depression Screening 1956 [facility]-/Child/Adol SDOH Screenings 1955 [facility]- SDOH Screenings 1974 [facility]-Adult SDOH Screenings 1974 [facility]-DTaP,Tdap,and Td Vaccine s (1 - Tdap) 11/05/1975 CT Colonography 2001 Colonoscopy 2001 FIT-DNA 2001 FIT 2001 FOBT 2001 Sigmoidoscopy 2001 [facility]-Colorectal Cancer Screening 2001 [facility]-Pneumococcal Vaccine: 50 + Years (1 of 1 - PCV) 2006 [facility]-Zoster Vaccines (2 of 3) 06/20/2017 04/25/2017 [id number] Vaccine ( season) 2025 06/08/2021, 09/01/2020, 08/04/2020 [facility]-Influenza Vaccine (#1) 03/23/202511/15, 07/21/2019, 08/09/2017 [facility]-RSV Vaccine: 60+ Years o r (1 - 1-dose 75+ series) 11/05/2031 HPV Vaccines Aged Out No longer eligi ble based on patient's age to complete this topic [facility]-HIB Vaccines Aged Out No longer e ligible based on patient's age to complete this topic [facility]-Hepatitis A Vaccines Aged Out No longer eligible based on patient's age to complete this topic [facility]-IPV Vaccines Aged Out No longer e ligible based on patient's age to complete this topic [facility]-Rotavirus Vaccines Aged Out No lo nger eligible based on patient's age to complete this topic Insurance MEDICARE Member Subscriber Plan / Payer (Ef fective 2021-Present) Name:Nelly Cai Member ID:[id number] Relation to Subscriber:Self Name:Nelly Cai Subscriber ID:[id number] Payer ID:MEDICARE Group ID:Not on file Type:Medicare Address: [address] Care Teams Dance Therapist Relationship Specialty Start Date End Date Hernandez Oliver MD [address] [facility] [address] [place] [address] PCP - General 04/26/21
--- OUTSIDE RECORDS SUMMARY | 2025-06-17 08:52 | XMS_ITS | Clinical Summary ---
Author Organization [facility] Address [address] [place] [address] Care Team Providers Care Metal Work Duct Installer Name Role Phone None, None Primary Care Provider Pola Tyson MD Unavailable [phone] Allergies Active Allergy Reactions Criticality Noted Date Comments Clarithromycin 08/28/2018 Itching Cefdinir Hives 08/21/2018 Per H&P Ciprofloxacin Hives 08/21/2018 Per H&P Medications metoprolol succinate (TOPROL) 50 mg Tablet Sustained Release 24 hr Take 50 mg by mouth daily. Active hydroCHLOROthiaz rose (MICROZIDE) 12.5 mg capsule Take 12.5 mg by mouth daily. Active estradiol/noreth indrone acet (LOPREEZA PO) Take by mouth daily. Active rosuvastatin calcium (CRESTOR PO) Take by mouth every evening. Active duloxetine HCl (CYMBALTA PO) Take by mouth every evening. Active CHOLECALCIFEROL, VITAMIN D3, PO Take by mouth daily. Active Active Problems Problem Noted Date Diagnosed Date Encounter for cosmetic surgery 08/28/2018 Family History Medical History Relation Name Comments Cancer Father High Blood Pressure Father Heart Problems Mother High Blood Pressure Mother Relation Name Status Comments Father Mother Social History Tobacco Use Types Packs/Day Years Used Date Smoking Tobacco: Never Smokeless Tobacco: Never Alcohol Use Standard Drinks/Week Comments Yes 0 (1 standard drink = 0.6 oz pur e alcohol) rarely Comments Unknown Sex and Gender Information Value Date Recorded Sex Assigned at Not on file Legal Sex Female 12:51 PM EST Gender Identity Not on file Sexual Orientation Not on file Last Filed Vital Signs Vital Sign Reading Time Taken Comments Blood Pressure 114/62 08/28/2018 10:15 AM EST Pulse 66 08/28/2018 10:15 AM EST Temperature 36.1 C (97 F) 08/28/2018 9:20 AM EST Respiratory Rate 16 08/28/2018 10:15 AM EST Oxygen Saturation 96% 08/28/2018 10:15 AM EST Inhaled Oxygen Concentration - - Weight 76.2 kg (168 lb) 08/28/2018 6:32 AM EST Height 170.2 cm (5' 7 ) 08/28/2018 6:32 AM EST Body Mass Index 26.31 08/28/2018 6:32 AM EST Plan of Treatment Not on file Medical Devices Implanted Type Area Front Desk Associate Device Identifier Shelf Expiration Date Model / Serial / Lot Brst Imp Sm Mod Class 385cc Implanted:Qty: 1 on 08/28/2018 by Pola Monzon MD at [facility] Left: Breast * [facility] 08/23/2022 [id number] / [id number] / Brst Imp Sm Mod Class 385cc Implanted:Qty: 1 on 08/28/2018 by Pola Monzon MD at [facility] Right: Breast * [employer] 02/10/2023 [id number] / [id number] Insurance [employer] Member Subscriber Plan / Payer (Ef fective for All Dates) Name:Nelly Cai Relation to Subscriber:Self Name:CaiNelly barbour Payer ID:[id number] Group ID:Not on file Type:Indemnity Address: [address] [id number] Care Teams Metal Work Duct Installer Relationship Specialty Start Date End Date None, None [address] [place] [address] PCP - General 08/28/18 Pola Monzon MD [address] [facility] [address] [place] [address] Plastic Surgery 07/30/22
--- OUTSIDE RECORDS SUMMARY | 2025-06-17 08:52 | XMS_ITS | Patient Health Record ---
Author Organization [facility] Address [address] [place] [id number] Care Team Providers Care Paper Sorter Name Role Phone Teresa Oliver Primary Care Provider Abraham Santos Unavailable [phone] Jaden Dempsey Unavailable [phone] Dennise Gutiérrez Unavailable [phone] Allergies Allergen (clinical drug ingredient) Drug/Non Drug Allergy documented on EMR Reaction Allergy Type Onset Date Status cefdinir Cefdinir Hives Drug Allergy Active ciprofloxacin Cipro hives Drug Allergy Act humberto Results Component Value Reference Range Notes P-Comprehensive Metabolic Pa bradly (CMP) Reviewed date:09/30/2024 09:06:20 AM Interpretation:Cr 1.12, gfr 54 Performing Lab: Notes/Report: Test performed by Host Committee, [address] , [address], [place] [address] Rhys Bacon MD, Communications Department Chairperson CLIA: [id number] Sodium 142 135-145 mmol/L Potassium 4.1 3.5-5.3 [...] 0.3 <0.2-1.2 mg/dL A/G Ratio 1.5 1.1-2.5 EMG/NCV, bilateral Reviewed date:10/08/2024 04:00:38 PM Interpretation:Normal Performing Lab: Notes/Report: Normal MRI : Spine, Cervical, witho ut contrast Reviewed date:09/16/2024 09:25:09 AM Interpretation:Abnormal Performing Lab: Notes/Report: Abnormal P-Lipid Panel Reviewed date:02/04/2025 01:02:18 PM Interpretation:chol 286, trigs 259, chol/hdl 4.69non-hdl 225, ldl 173 Performing Lab: Notes/Report: CLIA: [id number] Rhys Bacon MD, Communications Department Chairperson [address] [place] [address] , [address], [place] [address] Test performed by Host Committee, [facility] Cholesterol 286 <200 mg/dL Triglycerides 259 <150 [...] Results: 97 Units: mg/dL % Change: +21% P-Basic Metabolic Panel (BMP ) Reviewed date:02/04/2025 01:02:18 PM Interpretation:Cr 1.03, gfr 59 Performing Lab: Notes/Report: Test performed by Host Committee, [address] , [address], [place] [address] Rhys Bacon MD, Communications Department Chairperson CLIA: [id number] Sodium 136 135-145 mmol/L Potassium 4.3 3.5-5.3 mmol/L Chloride 99 97-108 mmol/L CO2 25 20-32 mmol/L Glucose 89 65-99 mg/dL BUN 15 8-23 mg/dL Creatinine 1.03 0.50-1.00 mg/dL Calcium 10.0 8.6-10.4 mg/dL eGFR by Creatinine 59 >59 mL/min/1.73m2 P-Surgical Pathology Reviewed date:02/04/2025 01:02:18 PM Interpretation:SOLAR [...] (NM5,RR13,amw1) Grossing services provided by [facility], [facility], d/b/a [address] [place], [address] Hola Salcedo MD, Communications Department Chairperson. Microscopic Description: There are nubbins of hyperpigmented [...] End of Report Technical services provided by [facility], [facility], d/b/a [address] , [place] [address] Hola Salcedo MD, Communications Department Chairperson. Case reviewed and diagnosis rendered at [facility], [facility], [address], [place] [address] Ceferino Bar DO, Communications Department Chairperson. CONFIDENTIAL Medications Medication SIG (Take, Route, Frequency, Duration) Notes Start Date End Date Status Progesterone 100 MG 1 capsule Orally Onc e a day Active Hydroxychloroquine Sulfate 200 MG as directed Orally bid Not-T aking Vitamin D3 50 MCG (1999 UT) 1 cap(s) orally once a day Active Zepbound 2.5 MG/0.5ML 0.5 mL Subcutaneous 02/26/20 Not-Taking sulfaSALAzine 500 MG 1 tablet Orally Onc e a day BID Active Triamterene-HCTZ 37.5-25 MG 1/2 tablet Orally Once a day; Duration: 90 days Active Vivelle-Dot 0.05 MG/24HR 1 patch to skin Transdermal Two times a Week; Duration: 30 day(s) Active Losartan Potassium 25 MG 1 tablet Orally Once a day; Duration: 90 days Active Rosuvastatin Calcium 40 MG 1 tab(s) oral ly once a day; Duration: 90 days Active Gabapentin 300 MG 1 capsule Orally twi ce a day; Duration: 30 days 03/26/2025 Active Oxazepam 15 MG 1 cap(s) orally thre e times a day as needed 11/22/2023 Active Zepbound 2.5 MG/0.5ML 2.5 mg Subcutaneou s once a week 04/17/2025 Active Estrace 0.1 MG/GM as directed intravaginally 2 times a week Active Hyoscyamine Sulfate 0.125 MG 1 tablet under the tongue and allow to dissolve as needed Sublingual three times a day as needed 02/18/2024 Active Metoprolol Succinate ER 50 MG 1 tab(s) orally once a day; Duration: 90 days Active DULoxetine HCl 30 MG 1 capsule Orally On ce a day; Duration: 90 days Active Immunizations Vaccine Route Administration Date Status Comme nts Zostavax Unknown 04/25/2017 Administered xFlu shot- 6months-36 months of uon-VCXU-IPYI-trivalent Unknown 08/09/2017 Administered xAdministration of injection SC Subcutaneous 04/25/2017 Administered Tetanus Tdap-Adacel (over 7yrs) Unknown 08/06/2018 Administered Shingrix IM Intramuscular 07/04/2021 Administered Fluzone PF Quad (6-35 months) Unknown 07/21/2019 Administered Fluzone High Dose (65yr and older) IM Intramuscular 11/15/2021 Administered Fluzone High Dose (65yr and older) IM Intramuscular 04/24/2022 Administered COVID 19 Moderna Unknown 08/04/2020 Administered COVID 19 Moderna Unknown 09/01/2020 Administered COVID 19 Moderna Unknown 06/08/2021 Administered Problems Problem Type SNOMED Code ICD Code Onset Dates Problem Status W/U Status Risk Notes Problem Essential hypertension (97241671) Essential (primary) hypertension (I10) Active confirmed Problem Sciatica (88414027) Sciatica (M54.30) Active co nfirmed Problem Hypertension (43852865) HTN (hypertension) (I10) Active confirmed Problem Essential hypertension (97964772) Essential hypertension (I10) Active confirmed Problem Anxiety (91830037) Anxiety (F41.9) Active confi rmed Problem Arthritis (1471599) Arthritis (M19.90) Active c onfirmed Problem Sciatic nerve lesion (808061317) Piriformis syndrome of left side (G57.02) Active confirmed Problem Mixed anxiety and depressive disorder (038406913) Depression with anxiety (F41.8) Active confirmed Problem Body mass index 30+ - obesity (271600930) BMI 30.0-30.9,adult (Z68.30) Active confirmed Problem Pure hypercholesterolemia (125836821) Pure hypercholesterolemia (E78.0) Active confirmed Problem Mixed hyperlipidemia (995392068) Mixed hyperlipidemia (E78.2) Active confirmed Problem Irritable bowel syndrome with diarrhea (523816849) Irritable bowel syndrome with diarrhea (K58.0) Active confirmed Problem Inflammatory polyarthropathy (117414559) Inflammatory polyarthropathy (M06.4) Active confirmed Problem Localized, primary osteoarthritis of the hand (549912279) Primary osteoarthritis, right hand (M19.041) Active confirmed Problem Localized, primary osteoarthritis of the hand (474912698) Primary osteoarthritis, left hand (M19.042) Active confirmed Problem Seborrheic keratosis (79638329) Seborrheic keratosis (L82.1) Active confirmed Problem Hyperlipidemia (84454089) Hyperlipidemia, unspecified (E78.5) Active confirmed Problem Renal insufficiency (620463777) Renal insufficiency (N28.9) Active confirmed Problem Paresthesia (finding ) (50456562) Paresthesias (R20.2) Active confirmed Problem Cervical disc disorder (934024973) DDD (degenerative disc disease), cervical (M50.30) Active confirmed Problem Body mass index 25-2 9 - overweight (519967456) BMI 28.0-28.9,adult (Z68.28) Active confirmed Problem Neoplasm of skin of thigh (427237372) Neoplasm of skin of thigh (D49.2) Active confirmed Problem Neoplasm of leg (D49.89) Active confirmed Problem Post menopausal problems (N95.9) Active confirmed Problem Fibrocystic breast changes (83583598) Fibrocystic breast disease (FCBD), unspecified laterality (N60.19) Active confirmed Problem Localized, primary osteoarthritis of the hand (476003276) Arthropathy of hand (M19.049) Active confirmed Problem Squamous cell carcinoma in situ (917809421) 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) Active confirmed Vital Signs Heart Rate 76 /min 04/17/2025 Blood pressure diastolic 72 mm Hg 04/17/2025 Height 66.50 in 04/17/2025 Blood pressure systolic 124 mm Hg 04/17/2025 Weight 185.4 lbs 04/17/2025 BMI 29.47 kg/m2 04/17/2025 Encounters Encounter Location Date Provider Diagnosis [facility] [address] [place] [id number] 08/08/2024 Teresa Oliver Pruritus L29.9 and Essential hypertension I10 [facility] [address] [place] [id number] 09/08/2024 Teresa Oliver Paresthesias R20.2 ; Weakness of left hand R29.898 and Itching L29.9 [facility] [address] [place], [place] [id number] 09/29/2024 Teresa Oliver Essential hypertensi on I10 ; Renal insufficiency N28.9 and BMI 30.0-30.9,adult Z68.30 [facility] [address] [place], [place] [id number] 11/21/2024 Teresa Oliver Lentigo L81.4 [facility] [address] [place] [id number] 01/30/2025 Teresa Oliver Essential hypertensi on I10 ; Renal insufficiency N28.9 ; Arthritis M19.90 ; Arthropathy of hand M19.049 ; Hyperlipidemia, unspecified E78.5 ; Mixed hyperlipidemia E78.2 ; Anxiety F41.9 ; Depression with anxiety F41.8 ; Lumbar back pain M54.50 ; Inflammatory polyarthropathy M06.4 and BMI 30.0-30.9,adult Z68.30 [facility] [address] [place] [id number] 04/17/2025 Dennise Gutiérrez BMI 29.0-29.9,adult Z68.29 and Essential hypertension I10 [facility] [address] [place] [id number] 06/25/2024 Teresa Oliver [facility] [address] [place] [id number] 07/08/2024 Teresa Oliver Anxiety F41.9 [facility] [address] [place] [id number] 08/26/2024 J Jimmie Oliver [facility] [address] [place] [id number] 08/29/2024 J Jimmie Oliver Pruritus L29.9 [facility] [address] [place] [id number] 09/16/2024 J Jimmie Oliver [facility] [address] [place] [id number] 09/24/2024 J Jimmie Oliver Pruritus L29.9 [facility] [address] [place] [id number] 09/30/2024 Teresa Oliver [facility] [address] [place] [id number] 09/30/2024 Teresa Oliver [facility] [address] [place] [id number] 10/07/2024 Teresa Oliver [facility] [address] [place] [id number] 10/20/2024 J Jimmie Oliver [facility] [address] [place] [id number] 11/11/2024 J Jimmie Benito [facility] [address] [place] [id number] 12/01/2024 J Jimmie Benito [facility] [address] [place] [id number] 12/26/2024 Jaden Brantwood Pruritus L29.9 [facility] [address] [place] [id number] 01/06/2025 J Jimmie Benito BMI 30.0-30.9,adult Z68.30 [facility] [address] [place] [id number] 01/28/2025 J Jimmie Benito Pruritus L29.9 [facility] [address] [place] [id number] 02/04/2025 J Jimmie Benito Pruritus L29.9 [facility] [address] [place] [id number] 02/04/2025 J Jimmie Benito [facility] [address] [place] [id number] 02/16/2025 J Jimmie Benito [facility] [address] [place] [id number] 02/23/2025 Abraham Bryan Tom [facility] [address] [place] [id number] 02/25/2025 J Jimmie Benito [facility] [address] [place], [place] [id number] 03/24/2025 J Jimmie Benito [facility] [address] [place] [id number] 04/03/2025 J Jimmie Benito [facility] [address] [place] [id number] 04/03/2025 J Jimmie Benito [facility] [address] [place] [id number] 05/11/2025 Teresa Oliver [facility] [address] [facility] [address] [place] [id number] 05/27/2025 Teresa Oliver Assessments Encounter Date Diagnosis (ICD Code) Assessment Notes Treatment Notes Treatment Clinical Notes Section Notes 07/08/2024 Anxiety (ICD-10 - F41.9) 08/08/2024 Essential hypertension (ICD-10 - I10) 08/08/2024 Pruritus (ICD-10 - L29.9) humidifier, Dove soap recommended, skip a bath occasionally, OTC Corticosteroi ds. Oxazepam refilled today. 08/29/2024 Pruritus (ICD-10 - L29.9) 09/08/2024 Paresthesias (ICD-10 - R20.2) 09/08/2024 Weakness of left hand (ICD-10 - R29.898) 09/24/2024 Pruritus (ICD-10 - L29.9) 09/29/2024 Essential hypertension (ICD-10 - I10) 09/29/2024 Renal insufficiency (ICD-10 - N28.9) 11/21/2024 Lentigo (ICD-10 - L81.4) 12/26/2024 Pruritus (ICD-10 - L29.9) 01/06/2025 BMI 30.0-30.9,adult (ICD-10 - Z68.30) 01/28/2025 Pruritus (ICD-10 - L29.9) 01/30/2025 Essential hypertension (ICD-10 - I10) 01/30/2025 Renal insufficiency (ICD-10 - N28.9) 02/04/2025 Pruritus (ICD-10 - L29.9) 04/17/2025 Essential hypertension (ICD-10 - I10) 04/17/2025 BMI 29.0-29.9,adult (ICD-10 - Z68.29) 01/30/2025 Arthritis (ICD-10 - M19.90) 09/29/2024 BMI 30.0-30.9,adult (ICD-10 - Z68.30) 09/08/2024 Itching (ICD-10 - L29.9) 01/30/2025 Arthropathy of hand (ICD-10 - M19.049) 01/30/2025 Hyperlipidemia, unspecified (ICD-10 - E78.5) 01/30/2025 Mixed hyperlipidemia (ICD-10 - E78.2) 01/30/2025 Anxiety (ICD-10 - F41.9) 01/30/2025 Depression with anxiety (ICD-10 - F41.8) 01/30/2025 Lumbar back pain (ICD-10 - M54.50) 01/30/2025 Inflammatory polyarthropathy (ICD-10 - M06.4) 01/30/2025 BMI 30.0-30.9,adult (ICD-10 - Z68.30) Plan Of Treatment Pending Test Test Name Order Date BUN, Creatinine 12/13/2020 Next Appt Details Provider Name:Teresa PerezJimmie Maci er, 08/10/2025 09:30:00 AM, [address], [place], [place], [id number], Insurance Providers Payer Name Payer Address Payer Phone Subscriber Number Group Number Insured Name Patient Relationship to Insured Coverage Start Date Coverage End Date MEDICARE PART B [address] [address] [place] [id number] NELLY CAI Self - patient is the insured [facility] [address] [place] [id number] ANNA CAI Spouse - patient is the spouse of the insured Medications Administered Medication Instructions Date of Administration Dosage Notes Depo- Medrol 40 mg/ml 07/06/2016 1 mL Dexamethasone 04/24/2022 1 mL Dexamethasone 03/01/2023 1 mL Medical (General) History Medical History History ICD Code Hypertension hyperlipidemia colonoscopy 2004, 200904/25/13 US of GB neg Neg Cardiolyte GXT 2009 tDapt July 2018 COVID 19 Vaccines x2, second was 09/01/19 21 COVID 19 Booster 06/08/21, Moderna Surgical History Surgery Date(Month/Year) x3 colonoscopy-normal 06/2010 breast reimplants 08/2018 Colonoscopy 05/2023 Hospitalization History Reason Date(Month/Year) [facility] ER-Elevated BP 02/22/2020 [facility] chest pain 03/15-03/15 kidney stone
--- OUTSIDE RECORDS SUMMARY | 2025-06-17 08:53 | XMS_ITS | Encounter Summary ---
[facility] Organization [facility] Address [address] [place] [address] Care Team Providers Care Materials Assistant Name Role Phone Hernandez Oliver MD Primary Care Provider [phone] Encounter Details Date Type Department Care Team (Latest Contact Info) Description 06/11/2025 Travel Social History Tobacco Use Types Packs/Day Years [...] Description 07/27/2025 10:40 AM EST Office Visit [facility] OBGYN [address] [facility] [address] [place] [phone] Jamie Glass MD [address] [facility] [address] [place] [id number] 08/07/2025 9:15 AM EST Office Visit [facility] CARDIOLOGY [address] [facility] [address] [place] [address] Bashir Norman MD [address] [facility] [address] [place] [address] 02/11/2026 10:15 AM EDT Office Visit [facility] OBGYN [address] [place] [phone] Francesca Cheney, WEB ENGINEER [address] [facility] [address] [place] [address] documented as of this encounter Visit Diagnoses Not on filedocumented in this encounter Care Teams Materials Assistant Relationship Specialty Start Date End Date Hernandez Oliver MD [address] [facility] [address] [place] [address] PCP - General Family Medicine 12/05/16 documented as of this encounter
--- OUTSIDE RECORDS SUMMARY | 2025-06-17 08:53 | XMS_ITS | Encounter Summary ---
[facility] Address [address] [place] [address] Care Team Providers Care Paper Sheeter Name Role Phone Hernandez Oliver MD Primary Care Provider [phone] Encounter Details Date Type Department Care Team (Late st Contact Info) Description 03/26/2025 Results Follow-Up [facility] OBGYN [address] [facility] [address] [place] [phone] Francesca Cheney APRN [address] [facility] [address] [place] [address] Social History Tobacco Use Types Packs/Day Years [...] AM EDT documented as of this encounter Progress Notes * Francesca Cheney APRN - 03/26/2025 9:08 AM EDT DEXA scan reviewed as within normal limits documented in this encounter Plan of Treatment Upcoming Encounters Date Type Department Care Team (Late st Contact Info) Description 07/27/2025 10:40 AM EST Office Visit [facility] OBGYN [address] [facility] [address] [place] [phone] Jamie Glass MD [address] [facility] [address] [place] [address] 08/07/2025 9:15 AM EST Office Visit [facility] CARDIOLOGY [address] [facility] [address] [place] [phone] Bashir Norman MD [address] [facility] [address] [place], [place] [phone] 02/11/2026 10:15 AM EDT Office Visit [facility] OBGYN [address] [place] [address] Francesca Cheney, SPEECH AND LANGUAGE ASSISTANT [address] [facility] [address] [place], [place] [phone] documented as of this encounter Visit Diagnoses Not on filedocumented in this encounter Care Teams Paper Sheeter Relationship Specialty Start Date End Date Hernandez Oliver MD [address] [facility] [address] [place] [address] PCP - General Family Medicine 12/05/16 documented as of this encounter
--- OUTSIDE RECORDS SUMMARY | 2025-06-17 08:53 | XMS_ITS | Encounter Summary ---
[facility] Organization [facility] Address [address] [place] [address] Care Team Providers Care Energy Sales Consultant Name Role Phone Hernandez Oliver MD Primary Care Provider [phone] Encounter Details Date Type Department Care Team (Late st Contact Info) Description 04/06/2025 Results Follow-Up [facility] O[facility]YN [address] [place] [address] Francesca Cheney, MEDICAL OFFICE TECHNOLOGIST [address] [facility] [address] [place], [place] [phone] Social History Tobacco Use Types Packs/Day Years [...] Description 07/27/2025 10:40 AM EST Office Visit [facility] OBGYN [address] [facility] [address] [place] [phone] Jamie Glass MD [address] [facility] [address] [place] [address] 08/07/2025 9:15 AM EST Office Visit [facility] CARDIOLOGY [address] [facility] [address] [place] [phone] Bashir Norman MD [address] [facility] [address] [place] [address] 02/11/2026 10:15 AM EDT Office Visit [facility] OBGYN [address] [facility] [address] [place] [address] Francesca Cheney, MEDICAL OFFICE TECHNOLOGIST [address] [facility] [address] [place] [address] documented as of this encounter Visit Diagnoses Not on filedocumented in this encounter Care Teams Energy Sales Consultant Relationship Specialty Start Date End Date Hernandez Oliver MD [address] [facility] [address] [place] [address] PCP - General Family Medicine 12/05/16 documented as of this encounter
--- OUTSIDE RECORDS SUMMARY | 2025-06-17 08:53 | XMS_ITS | Encounter Summary ---
Author Organization [facility] Address [address] [place] [address] Care Team Providers Care Plate Mill Hand Name Role Phone Hernandez Oliver MD Primary Care Provider [phone] Encounter Details Date Type Department Care Team (Latest Contact Info) Description 05/11/2025 Travel Social History Tobacco Use Types Packs/Day [...] Description 07/27/2025 10:40 AM EST Office Visit [facility] OBGYN [address] [facility] [address] [place] [phone] Jamie Glass MD [address] [facility] [address] [place] [phone] 08/07/2025 9:15 AM EST Office Visit [facility] CARDIOLOGY [address] [facility] [address] [place] [address] Bashir Norman MD [address] [facility] [address] [place] [address] 02/11/2026 10:15 AM EDT Office Visit [facility] OBGYN [address] [place] [phone] Francesca Cheney, CHROME TANNER [address] [facility] [address] [place] [address] documented as of this encounter Visit Diagnoses Not on filedocumented in this encounter Care Teams Plate Mill Hand Relationship Specialty Start Date End Date Hernandez Oliver MD [address] [facility] [address] [place] [address] PCP - General Family Medicine 12/05/16 documented as of this encounter
--- OUTSIDE RECORDS SUMMARY | 2025-06-17 08:53 | XMS_ITS | Clinical Summary ---
[facility] [address] [place] [address] Care Team Providers Care Electronics Recycler Name Role Phone Hernandez Oliver MD Primary Care Provider [phone] Allergies Active Allergy Reactions Criticality Noted Date Comments Amoxicillin Rash,Other (See Comments) Low 11/02/2021 amoxicillin Cefdinir Hives 08/21/2018 Per H&P Ciprofloxacin Hives,Rash High 03/16/2016 Clarithromycin Other (See Comments) Low 08/28/2018 Itching Lactose 03/16/2016 Sulfa Antibiotics Rash Low 05/14/2019 Sulfamethoxazole Unknown - Low Severity 11/02/2021 Sulfamethoxazole-Trimethopri m Hives High 03/30/2025 Trimethoprim Unknown - Low Severity 11/02/2021 Medications DULoxetine (CYMBALTA) 30 MG capsule Take 1 capsule by mouth Daily. 0 6 Active triamterene-hyd rochlorothiazid e (MAXZIDE-25) 37.5-25 MG per tablet Take 1 tablet by mouth Daily. 0 6 Active acyclovir (ZOVIRAX) 5 % ointment As Needed. 0 8 Active losartan (COZAAR) 25 MG tablet Take 1 tablet by mouth Daily. Active cholecalciferol (VITAMIN D3) 25 MCG (1000 UT) tablet Take 1 tablet by mouth Daily. Active rosuvastatin (CRESTOR) 40 MG tablet Take 1 tablet by mouth Daily. 3 Active metoprolol succinate XL (TOPROL-XL) 50 MG 24 hr tablet Take 1 tablet by mouth Every Night. 4 Active hyoscyamine (LEVSIN) 0.125 MG SL tablet 1 tablet under the tongue and allow to dissolve as needed Sublingual three times a day as needed 4 Active sulfaSALAzine (AZULFIDINE) 500 MG tablet Take 1 tablet by mouth 2 (Two) Times a Day. 5 Active triamcinolone (KENALOG) 0.1 % cream 5 Active estradiol (ESTRACE) 0.1 MG/GM vaginal cream Insert 1 g into the vagina 2 (Two) Times a Week. 42.5 g 4 5 Active estradiol (Vivelle-Dot) 0.05 MG/24HR patch Place 1 patch on the skin as directed by provider 2 (Two) Times a Week. 24 patch 3 5 Active Progesterone (Prometrium) 100 MG capsule Take 1 capsule by mouth Daily. 90 capsule 3 5 Active gabapentin (NEURONTIN) 300 MG capsule Take 1 capsule by mouth 2 (Two) Times a Day. 5 Active colestipol (COLESTID) 1 g tablet Take 1 tablet by mouth Daily. 5 Active Active Problems Problem Noted Date Diagnosed Date PMB (postmenopausal bleeding) 05/11/2025 Erosive osteoarthritis 12/10/2023 Assessment & Plan (06/26/2024 11:57 AM EST): I think her exam is most consistent with this diagnosis X-ray of hands (08/14/2022): erosions in DIPs consistent with erosive osteoarthritis Plan: No nsaids. No diclofenac or Voltaren gel. We also talked about the objective benefit with glucosamine chondroitin and tumeric. Tylenol Arthritis 2 tablets twice dailys as needed - [employer] generic or BRAND She briefly stopped Plaquenil this summer due to itching in her arms after starting the medicine. Itching did not resolve. She restarted Plaquenil and feels better on it. Refill today She does not feel she needs Tramadol at this time. Tylenol is working for her, Assessment & Plan (12/10/2023 8:45 AM EDT): I think her exam is most consistent with this diagnosis X-ray of hands (08/14/2022): erosions in DIPs consistent with erosive osteoarthritis Plan: No nsaids. No diclofenac or Voltaren gel. We also talked about the objective benefit with glucosamine chondroitin and tumeric. Tylenol Arthritis 2 tablets twice dailys as needed - [employer] generic or BRAND Plaquenil brochure given and discussed today. She wants to hold off on this. Tramadol bid could be another option. She does not want to try this at present. 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 10/13 Cr 1.35/43 Plan: Avoid NSAIDs. She report renal function improved off NSAIDs Plenty of fluids. Assessment & Plan (12/10/2023 8:41 AM EDT): Pt was on Celebrex with EPA at last visit. 10/13 Cr 1.35/43 Per pt this has improved since September Plan: Stop nsaids. Need last Cr from PCP Per pt this was so much improved that they are not sending her to nephrology yet. Plenty of fluids. High risk medication use 12/06/2023 Overview (06/26/2024): Continue Plaquenil Labs every 6 months: CBC and CMP Assessment & Plan (06/25/2024 9:39 AM EST): We discussed Plaquenil today but she would like to hold off at present Assessment & Plan (12/10/2023 8:47 AM EDT): We discussed Plaquenil today but she would like to hold off at present Vaginal irritation 08/20/2023 Fungal infection of toenail 01/20/2022 Nasal septal ulcer 01/20/2022 Encounter for cosmetic surgery 08/28/2018 Post-menopause on HRT (hormone replacement thera py) 04/04/2018 Seasonal allergic rhinitis due to fungal spores 12/05/2016 Cough 12/05/2016 Abnormal PFT - low maximal v oluntary ventilation which could be effort related and abnormal inspiratory flow loop suggesting possible variable extrathoracic obstruction on PFT 12/05/2016 12/05/2016 Overview (12/05/2016): - low maximal voluntary ventilation which could be effort related and abnormal inspiratory flow loop suggesting possible variable extrathoracic obstruction on PFT 12/05/2016. - Variable extrathoracic obstruction was not suggested based on prior pulmonary function testing done on 09/26/2016. Dysuria 11/20/2016 Anxiety 11/20/2016 Overview (11/20/2016): h/o Allergy 11/20/2016 Overview (11/20/2016): h/o Vaginal atrophy 03/16/2016 Hypertension Hyperlipidemia Depression Chronic diarrhea Resolved Problems Problem Noted Date Diagnosed Date Resolved Date Menopause 04/04/2018 04/04/2018 Post-menopause on HRT (hormo ne replacement therapy) 04/04/2018 Encounters Date Type Department Care Team Description 06/11/2025 Travel 05/11/2025 10:20 AM EDT Office Visit [facility] [address] [place] [id number] Jamie Glass MD Post-menopause on HRT (hormone replacement therapy) (Primary Dx) 05/11/2025 Travel 04/06/2025 Results Follow-Up [facility] [address] [place] [address] Don De León APRN 04/02/[address] 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 [address] [place] [address] Don De León APRN Postmenopausal bleeding (Primary Dx) 03/30/2025 9:50 AM EDT Hospital Encounter [facility] [address] [place] [address] Postmenopause bleeding 03/30/2025 Travel 03/26/2025 Results Follow-Up [facility] [address] [place] [address] Don De León APRN 03/25/2025 10:11 AM EDT - 03/25/2025 11:59 PM EDT Hospital Encounter [facility] [address] [place] [address] Don De León APRN Encounter for osteoporosis screening in asymptomatic postmenopausal patient Discharge Disposition: Home or Self Care 03/25/2025 Travel from Last 3 Months Immunizations Immunization Administration Dates Next Due COVID-19 (MODERNA) 1st,2nd,3rd Dose Monovalent 0 09/01/2020,08/04/2020 COVID-19 (MODERNA) Monovalent Original Booster 1 08/08/2020 Fluzone >6mos 08/09/2017 Fluzone High-Dose 65+yrs 11/15/2021 Zostavax 04/25/2017 Family History Medical History Relation Name Comments Hypertension Brother 1 Hypertension Brother 2 No Known Problems Daughter 1 No Known Problems Daughter 2 Hypertension Father Chacho Cavazos Prostate cancer Father Chacho Cavazos Colon cancer Maternal Aunt 1 Coronary artery disease Mother Kay Cavazos Diabetes Mother Aky Cavazos Hypertension Mother Kay Cavazos Breast cancer Paternal Aunt late 70s onse t Heart attack Paternal Grandfather Brynn Cavazos Hypertension Sister 1 No Known Problems Sister 2 Hypertension Son Ovarian cancer Neg Hx Relation Name Status Comments Brother 1 Alive Brother 2 Alive Daughter 1 Alive Daughter 2 Alive Father Chacho Cavazos Maternal Aunt 1 Maternal Aunt 2 Mother Kay Cavazos Paternal Aunt Paternal Grandfather Brynn Cavazos Paternal Grandmother Sister 1 Alive Sister 2 Alive Son Alive Social History Tobacco Use Types Packs/Day Years Used Date Smoking Tobacco: Never Passive Smoke Exposure: Never Smokeless Tobacco: Never Tobacco Cessation:Counseling Given: No Alcohol Use Standard Drinks/Week Comments Yes 0 (1 standard drink = 0.6 oz pur e alcohol) Rarely Comments No Sex and Gender Information Value Date Recorded Sex Assigned at Female 01/29/2025 8:22 AM EDT Legal Sex Female 12:04 PM EDT Gender Identity Not on file Sexual Orientation Straight 01/29/2025 8: 22 AM EDT Last Filed Vital Signs Vital Sign Reading Time Taken Comments Blood Pressure 118/70 03/30/2025 10:14 AM EDT Pulse 68 06/26/2024 11:40 AM EST Temperature 36.1 C (97 F) 06/26/2024 11:40 AM EST Respiratory Rate 16 03/30/2025 10:14 AM EDT Oxygen Saturation 96% 03/14/2024 1:56 PM EDT Inhaled Oxygen Concentration - - Weight 83.5 kg (184 lb) 05/11/2025 10:35 AM EDT Height 170.2 cm (5' 7.01 ) 05/11/2025 10:35 AM E DT Body Mass Index 28.81 05/11/2025 10:35 AM EDT Plan of Treatment Upcoming Encounters Date Type Department Care Team (Late st Contact Info) Description 07/27/2025 10:40 AM EST Office Visit [facility] [address] [place] [address] Jamie Glass MD [address] [place], [place] [id number] 08/07/2025 9:15 AM EST Office Visit [facility] [address] [place] [address] Bashir Norman MD [address] [place] [address] 02/11/2026 10:15 AM EDT Office Visit [facility] [address] [place] [phone] Don De León, [employer] ARTISTIC DIRECTOR [address] [place] [address] Health Maintenance Due Date Last Done Comments LIPID PANEL 1956 TDAP/TD VACCINES (1 - Tdap) 11/05/1975 COLOGUARD 2001 COLON CANCER SCREENING 5 YEA R SIGMOIDOSCOPY 2001 CT COLONOGRAPHY 2001 FECAL OCCULT BLOOD TEST 2001 FIT Testing (1 year) 2001 Pneumococcal Vaccine 50+ (1 of 1 - PCV) 2006 ANNUAL WELLNESS VISIT 03/15/2016 HEPATITIS C SCREENING 03/15/2016 ZOSTER VACCINE (2 of 3) 06/20/2017 04/25/2017 COVID-19 Vaccine (3 - Modern a risk series) 07/06/2021 06/08/2021, 09/01/2020, 08/04/2020 INFLUENZA VACCINE 02/20/2025 04/24/2022, , 07/21/2019, Additional history exists MAMMOGRAM 03/03/2027 03/03/2025, 07/25, 12/12/2022, Additional history exists DXA SCAN 03/25/2027 03/25/2025 COLONOSCOPY 06/08/2033 06/08/2023, 05/23, 06/23/2020 COLORECTAL CANCER SCREENING 06/08/2033 Procedures Procedure Name Priority Date/Time Associated Diagnosis Comments ENDOMETRIAL BIOPSY Routine 03/30/2025 10 :56 AM EDT Postmenopausal bleeding US NON-OB TRANSVAGINAL Routine 03/30/2025 10:10 AM EDT Postmenopause bleeding DEXA BONE DENSITY AXIAL Routine 03/25/2025 10:33 AM EDT Encounter for osteoporosis screening in asymptomatic postmenopausal patient MAMMO DIAGNOSTIC DIGITAL TOMOSYNTHESIS RIGHT W CAD Routine 03/03/2025 10:14 AM EDT Nipple tenderness SCANNED - COLONOSCOPY 06/08/2023 from Last 3 Months or Most Recently Relevant to Health Maintenance Results * Endometrial Biopsy (03/30/2025 10:56 AM EDT) Narrative Don De León APRN - 03/30/2025 10:56 AM EDT Don De León APRN 03/30/2025 11:01 AM Endometrial Biopsy Date/Time: 03/30/2025 10:56 AM Performed by: Don De León APRN Authorized by: Don De León APRN Consent: Consent obtained: written Consent given by: patient Risks discussed: bleeding, infection, need for repeat procedure and pain Alternatives discussed: observation and referral Patient agrees, verbalizes understanding, and wants to proceed: yes Procedure explained and questions answered to patient or proxy's satisfaction: yes Norris protocol: Test results available and properly labeled: yes Relevant documents present and verified: yes Imaging studies available: yes Required blood products, implants, devices, and special equipment available: yes Site/side marked: no Immediately prior to procedure a time out was called: yes Patient identity confirmed: verbally with patient Indications: Indications: postmenopausal bleeding Chronicity of post-menopausal bleeding: new Pre-procedure: Urine test: N/A Premeds: acetaminophen Procedure: A bimanual exam was performed: no Prepped with: Betadine Tenaculum used: yes Tenaculum used comment: Allis clamp in lieu of tenaculum A local block was performed: no Cervix dilated: yes Findings: Cervix: stenotic Patient tolerance: tolerated well, no immediate complications Comments: Procedure comments: Unable to collect specimen as cervix too stenotic and dilation could not be performed. 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 Quill Skinner: Sary Garcia RDMS Physician: oR Alcala MD Electronically signed by: Ro Alcala MD at: 12:29 us Don De León [employer] ARTISTIC DIRECTOR IMG US ORDERABLES Final Resu lt * DEXA Bone Density Axial (03/25/2025 10:33 AM EDT) Anatomical Region Laterality Modality Wrist, Hip, L-spine N/A Other 03/25/2025 11:1 9 AM EDT Impressions 03/25/2025 9:30 PM EDT Bone mineral density results are within normal limits. The ten year fracture risk assessment was not calculated because all T-scores were at or above -1.0. All the treatment decisions require clinical judgment and consideration of individual patient factors, including patient preferences, co-morbidities, previous drug use, risk factors not captured in the FRAX model (frailty, falls, vitamin D deficiency, increased bone turnover, interval significant decline in bone density) and possible under or over estimation of fracture risk by FRAX. Approaches to reduce osteoporosis related fracture risk include optimizing calcium and vitamin D status, appropriate weight bearing exercises and fall-prevention measurements. The National Osteoporosis Foundation recommends (http://www.nof.org/hcp/practice/eygtyxed-pzp-xxbbkhwa-guidelines/clinicians-rasta de) that FDA-approved medical therapies be considered in postmenopausal women and men aged equal or greater than 50 years with : a) hip or vertebral (clinical or morphometric) fracture; b) T-score of -2.5 or less at the spine or hip; c) Ten-year fracture probability by FRAX of greater than 3% for hip fracture of greater than 20% for major osteoporotic fracture. Secondary causes of bone loss should be evaluated if clinically indicated since the etiology of low BMD cannot be determined by BMD measurement alone. FOLLOWUP: Consider repeating the study in 2-3 years to reassess the patient's status or sooner if there is some new clinical indication. INTERVAL CHANGE: There were no equivalent studies available for comparison. At this facility, the least significant change in the BMD at the left hip with 95% confidence is 0.328198 gm/cm2 at the hip and 0.256444 g/cm2 at the lumbar spine. Report dictated by: Ailyn Hadley PA-c I have personally reviewed this case and agree with the findings above: Electronically Signed: Aman Lombardi MD 03/25/2025 9:30 PM EDT Workstation ID: [id number] Narrative 03/25/2025 9:30 PM EDT DUAL-ENERGY X-RAY ABSORPTIOMETRY (DXA) INDICATION: Postmenopausal, screening for osteoporosis, height loss, inflammatory bowel disease COMPARISON: There are no equivalent studies available for comparison PROCEDURE: A DXA scan was performed using a Hologic densitometer. The lumbar spine L2-L4 was evaluated as well as bilateral total hip. The T-score compares the patient's bone mineral density with the peak bone mass of young normal patients. According to criteria established by the World Health Organization, patients with T-scores between 1.0 and 2.5 standard deviations BELOW the mean are osteopenic (low bone mass). Patients with T-scores EQUAL TO OR GREATER than 2.5 standard deviations below the mean are osteoporotic. The Z-score compares the patient bone mineral density with age and sex matched peers. According to the International Society for Clinical Densitometry's 2007 consensus conference: In women prior to menopause and men less than age 50, Z-scores, not T-scores are preferred. A Z-score of -2.0 or lower is defined as below the expected range for age and a Z-score above -2.0 is within the expected range for age. The WHO diagnostic criteria may be applied in women in the menopausal transition. Osteoporosis cannot be diagnosed in men under age 50 on the basis of BMD alone. TECHNICAL QUALITY: The study is of good technical quality. RESULTS: Lumbar Spine: The BMD measured in the L2-L4 region is 1.09 to g/cm2. The average T-score is 0.1. The Z-score is 2.2. Total Hip: The BMD measured at the left total proximal femur is 1.053 g/cm2. The T-score is 0.9. The Z-score is 2.3. Femoral Neck: The BMD measured at the left femoral neck is 0.791 g/cm2. The T-score is -0.5. The Z-score is 1.2. Total Hip: The BMD measured at the right total proximal femur is 0.961 g/cm2. The T-score is 0.2. The Z-score is 1.6. Femoral neck: The BMD measured at the right femoral neck is 0.769 g/cm2. The T score is -0.7. The Z score is 1.0. Procedure Note mAan Lombardi MD - 03/25/2025 DUAL-ENERGY X-RAY ABSORPTIOMETRY (DXA) INDICATION: Postmenopausal, screening for osteoporosis, height loss,inflammatory bowel disease COMPARISON: There are no equivalent studies available for comparison PROCEDURE: A DXA scan was performed using a Hologic densitometer. The lumbar spine L2-L4 was evaluated as well as bilateral total hip. The T-score compares the patient's bone mineral density with the peak bonemass of young normal patients. According to criteria established by the[facility] Health Organization, patients with T-scores between 1.0 and 2.5standard deviations BELOW the mean are osteopenic (low bone mass). Patients with T-scores EQUAL TO ORGREATER than 2.5 standard deviations below the mean are osteoporotic. The Z-score compares the patient bone mineral density with age and sexmatched peers. According to the International Society for ClinicalDensitometry's 2007 consensus conference: In women prior to menopause andmen less than age 50, Z-scores, not T-scores are preferred. A Z-score of -2.0 or lower is defined as belowthe expected range for age and a Z-score above -2.0 is within theexpected range for age. The WHO diagnostic criteria may be applied inwomen in the menopausal transition. Osteoporosis cannot be diagnosed in men under age 50 on the basis of BMDalone. TECHNICAL QUALITY: The study is of good technical quality. RESULTS: Lumbar Spine: The BMD measured in the L2-L4 region is 1.09 to g/cm2. Theaverage T-score is 0.1. The Z-score is 2.2. Total Hip: The BMD measured at the left total proximal femur is 1.053g/cm2. The T-score is 0.9. The Z-score is 2.3. Femoral Neck: The BMD measured at the left femoral neck is 0.791 g/cm2.The T- score is -0.5. The Z-score is 1.2. Total Hip: The BMD measured at the right total proximal femur is 0.961g/cm2. The T-score is 0.2. The Z-score is 1.6. Femoral neck: The BMD measured at the right femoral neck is 0.769 g/cm2.The T score is -0.7. The Z score is 1.0. IMPRESSION: Bone mineral density results are within normal limits. The ten year fracture risk assessment was not calculated because allT-scores were at or above -1.0. All the treatment decisions require clinical judgment and consideration ofindividual patient factors, including patient preferences, co-morbidities,previous drug use, risk factors not captured in the FRAX model (frailty,falls, vitamin D deficiency, increased bone turnover, interval significant decline in bone density) andpossible under or over estimation of fracture risk by FRAX. Approaches toreduce osteoporosis related fracture risk include optimizing calcium andvitamin D status, appropriate weight bearing exercises and fall-prevention measurements. The NationalOsteoporosis Foundation recommends(http://www.nof.org/hcp/practice/dlylcple-krf-ptzkfihx-guidelines/clin ician s-guide) that FDA-approved medical therapies be considered in postmenopausal women and men aged equal or greater than 50 years with :a) hip or vertebral (clinical or morphometric) fracture; b) T-score of-2.5 or less at the spine or hip; c) Ten-year fracture probability by FRAXof greater than 3% for hip fracture of greater than 20% for major osteoporotic fracture. Secondary causes of bone loss should be evaluated if clinically indicatedsince the etiology of low BMD cannot be determined by BMD measurementalone. FOLLOWUP: Consider repeating the study in 2-3 years to reassess thepatient's status or sooner if there is some new clinical indication. INTERVAL CHANGE: There were no equivalent studies available forcomparison. At this facility, the least significant change in the BMD at the left hipwith 95% confidence is 0.531796 gm/cm2 at the hip and 0.757320 g/cm2 atthe lumbar spine. Report dictated by: Ailyn Hadley PA-c I have personally reviewed this case and agree with the findings above: Electronically Signed: Aman Lombardi MD 03/25/2025 9:30 PM EDT Workstation ID: [id number] us Don De León [employer] ARTISTIC DIRECTOR IMG DXA ORDERABLES Final Res ult * Mammo Diagnostic Digital Tomosynthesis Right With CAD (03/03/2025 10:14 AM EDT) Anatomical Region Laterality Modality Breast Right Mammography 03/03/2025 11:4 6 AM EDT Impressions 03/03/2025 11:49 AM EDT Stable mammographic appearance of the right breast with stable benign-appearing calcifications in the mid upper outer quadrant. No new or suspicious mammographic abnormality is seen. Focused ultrasound imaging of the right 6:00 subareolar region shows mildly dilated ducts with no sonographic abnormality identified. RECOMMENDATION: Recommend clinical follow up of the right breast. Otherwise recommend the patient continue with annual screening mammography. She will be due after 08/21/2025 for her next screening exam. The FDA recommends screening for silicone implant rupture 5 to 6 years post implantation and every 2 to 3 years thereafter. MRI imaging is the most sensitive modality for evaluating implant integrity. ACR BI-RADS CATEGORY: 2, BENIGN CAD was utilized. The standard false-negative rate of mammography is between 10% and 25%. Complex patterns or increased breast density will markedly elevate the false-negative rate of mammography. A letter, in lay terminology, with the results of this exam was given to the patient at the time of the visit. At our facility, a triangular marker is positioned over a palpable area of concern indicated by the patient. A kiana marker is placed over a visible skin lesion. A linear marker indicates a scar. 03/03/2025 11:[address] Amy Alfonso MD on Narrative 03/03/2025 11:49 AM EDT RIGHT DIAGNOSTIC MAMMOGRAM WITH TOMOSYNTHESIS AND A FOCUSED RIGHT BREAST ULTRASOUND CLINICAL INDICATION: 69-year-old patient presents for evaluation of focal tenderness/pain on palpation in the right subareolar region. The patient is status post previous bilateral augmentation mammoplasty. She reports a family history breast cancer in a paternal aunt. The patient is on hormonal replacement therapy (estrogen patch). TECHNIQUE: Low dose full field digital breast tomosynthesis imaging was performed consisting of right CC and MLO views. Both standard and implant displaced views were performed. A focused right breast ultrasound was performed. COMPARISON: 08/21/2024, 12/12/2022, 12/01/2021, 11/02/2020, 02/07/2019 FINDINGS: The right breast is heterogeneously dense, which may obscure small masses. The fibroglandular pattern is stable. No mass or distortion is seen. There are stable grouped rounded calcifications present in the mid upper outer quadrant. No new suspicious calcifications are seen. The patient has a prepectoral silicone implant. No contour abnormalities are seen no extracapsular silicone is identified. Focused ultrasound imaging of the right breast targeted to the area of pain. This is identified by the patient in the 6:00 subareolar region. There is some mildly dilated ducts in this region. No solid masses or abnormal areas of shadowing are seen. No intraductal masses are seen. us Amy Alfonso MD G MAMMOGRAPHY ORDERABLES Fin al Result * SCANNED - COLONOSCOPY (06/08/2023) us Dennis Dave MD CHART REVIEW TABS Final Result from Last 3 Months or Most Recently Relevant to Health Maintenance Insurance MEDICARE A & B Member Subscriber Plan / Payer (Ef fective 2021-Present) Name:Nelly Cai Member ID:[id number] Relation to Subscriber:Self Name:Nelly Cai Subscriber ID:[id number] Payer ID:[id number] Group ID:Not on file Type:Not on file Address: [facility] [id number] [place] [id number] [facility] [employer] Care Teams Electronics Recycler Relationship Specialty Start Date End Date Hernandez Oliver MD [facility] [address] [facility] [address] [place] [address] PCP - General Family Medicine 12/05/16
--- OUTSIDE RECORDS SUMMARY | 2025-06-17 08:53 | XMS_ITS | Encounter Summary ---
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 * Telephone Encounter - Joan Perry RegSched Rep - 04/02/2025 9:25 AM EDT Caller: NELLY ACI Best call back number: [phone] Patient is needing: PT WAS SEEN 03/30/25 BY DON DE LEÓN WAS TOLD SHE WAS NEEDING A HYSTEROSCOPY. PT REQUESTING AN APPT DATE & TIME documented in this encounter Plan of Treatment Upcoming Encounters Date Type Department Care Team (Late st Contact Info) Description 07/27/2025 10:40 AM EST Office Visit [facility] [address] [facility] [address] [place] [address] Jamie Glass MD [address] [facility] [address] [place] [address] 08/07/2025 9:15 AM EST Office Visit [facility] [address] [facility] [address] [place] [phone] Bashir Norman MD [address] [facility] [address] [place] [address] 02/11/2026 10:15 AM EDT Office Visit [facility] [address] [facility] [address] [place] [phone] Don D eLeón, [place] [address] [facility] [address] [place] [address] documented as of this encounter Visit Diagnoses Not on filedocumented in this encounter Care Teams Data Analyst Relationship Specialty Start Date End Date Hernandez Oliver MD [address] [facility] [address] [place] [address] PCP - General Family Medicine 12/05/16 documented as of this encounter
--- NOTE | 2025-06-17 09:05 | ECG_ITS ---
APPROVED REPORT Exam: Resting ECG HR:77 bpm ECG Measurements Heart Rate 77 AXES WY 145 P 59 QRSd 100 QRS 59 QT 370 T 49 QTc 402 Conclusion SINUS RHYTHM MINIMAL ST DEPRESSION [0.025+ mV ST DEPRESSION] BORDERLINE ECG UNCONFIRMED REPORT Electronically signed by : Raj Riley MD 06/18/2025 09:28:18
[2025-06-17 09:49] LABS: Hematocrit 41.8 % (37.0-47.0); Hemoglobin 13.5 g/dL (12.2-16.2); Mean Corpuscular HGB Conc 32.3 g/dL (31.8-35.4); Mean Corpuscular Hemoglobin 29.9 pg (27.0-31.2); Mean Corpuscular Volume 92.7 fl (81-99); Nucleated Red Blood Cells % 0 %; Platelet Count 237 K/mm3 (142-424); Red Blood Count 4.51 M/mm3 (4.20-5.40); Red Cell Distribution Width-SD 45.4 fL; White Blood Count 11.7 K/mm3 (4.8-10.8)
[2025-06-17 10:09] LABS: Albumin Level 4.5 g/dl (3.5-5.0); Chloride 101 mmol/L (98-107); Potassium 4.0 mmoL/L (3.5-5.1); Sodium 142 mmol/L (136-145)
[2025-06-17 10:11] LABS: Blood Urea Nitrogen 15 mg/dl (7-17); Creatinine,Serum 1.00 mg/dl (0.52-1.04); Estimated Glomerular Filt Rate 55 ml/min (>60); GFR (African American) 67 ML/MIN (>60)
[2025-06-17 10:12] LABS: Alanine Aminotransferase 57 U/L (12-78); Albumin/Globulin Ratio 1.5 (1.1-1.8); Alkaline Phosphatase 76 U/L (38-126); Anion Gap 17.0 mEq/L (5-15); Aspartate Amino Transferase 52 U/L (14-36); Bilirubin,Total 0.6 mg/dl (0.2-1.3); Calcium 9.7 mg/dl (8.4-10.2); Carbon Dioxide 28 mmol/L (22.0-30.0); Globulin 3.0 g/dL (1.3-3.2); Glucose 92 mg/dl (74-100); Total Protein,Serum 7.5 g/dl (6.3-8.2)
== END 2025-06-17 23:59 | disposition home or self-care (01) ==
LOC: RT 08:49
PROVIDERS: PCP Family Medicine; Visit Provider Obstetrics & Gynecology
DX: N95.0 Postmenopausal bleeding (principal)
CPT/HCPCS: 36415; 80053; 85027; 93005